=== PATIENT | male | born 1970 | race Caucasian/White ===

== ENCOUNTER 2016-07-17 14:25 | Emergency (ER) | payer MEDICAID ==
[~2016-07-17] VITALS: Ht 177.8 cm; Wt 70.5 kg
[2016-07-17 14:28] VITALS: BP 123/89; PULSE 122; RESP 20; O2SAT 96
--- NOTE | 2016-07-17 15:15 | ED.REPORT ---
HPI-Psychiatric Illness Date of Service Jul 17, 2016 ED Provider: Faheem Beach History of Present Illness: 46yo male recently relocated from [place] to be near expecting daughter reports he has been out of his seizure and psychiatric meds for 4 days. He smoked methamphetamines last evening. He has a long hx. of mental illness, "I know I don't do well when I'm off my meds." He has pill bottles with him for Paxil, Haldol, and Phenobarb, last filled 06/28 for 2 week supply. No SI/HI. Nursing Notes Stated Complaint: MEDICATION Chief Complaint: Psychiatric Complaint Nursing Notes Reviewed: Yes Allergies: Coded Allergies: No Known Allergies (Unverified , 07/17/16) Scheduled Haloperidol (Haloperidol) 5 Mg Tablet 5 MG PO QPM Paroxetine (Paxil) 20 Mg Tablet 20 MG PO HS Phenobarbital (Phenobarbital) 64.8 Mg Tablet 64.8 MG PO DAILY General Time Seen by MD: 15:07 Chief Complaint Anxious, Hallucinations, auditory Hx Obtained From: Patient Onset Occurred: 4 days ago Context of Onset: Illicit drug use Symptom Duration: Since onset Severity: Current: No pain currently Severity: Maximum: No pain Associated with: Reports: Anxiety, Psychosis Pertinent Negative: Pt denies other symptoms Recent Healthcare: Recent doctor visit Similar Sx Previous: Yes Risk-Psychiatric Illness Suicide Risk Stratification Suicide Risk Factors - Adult: : Prior psych admission: Substance abuse RF Statements: Risk factors reviewed Past Medical History Past Medical History Schizophrenia Epilepsy Substance use disorder Reports: Mental illness Smoking History Current Every Day Smoker Social History Alcohol Use: "Social" Drug Use: Meth, THC Other Social History: From out of town Ambulatory Status Independent Review of Systems Constitutional: Denies: Chills, Fever Respiratory: Denies: Shortness of breath Cardiovascular: Denies: Chest pain GI: Denies: Abdominal pain Psychiatric: Reports: Anxiety, Hallucinations, auditory, Insomnia, Stress, Denies: Delusional, Suicidal ideation Physical Exam Initial Vital Signs Vital Signs (First) Date Time Temp Pulse Resp B/P Pulse Ox O2 Delivery O2 Flow Rate FiO2 07/17/16 14:28 36.1 122 20 123/89 96 Room Air Initial VS: Reviewed General/Constitutional: Awake, Alert, Not toxic appearing Behavior: Positive: Anxious, Restless, Tearful Psychiatric: Not suicidal, Not homicidal, Judgment/insight NL Abnormal Mood/Affect: Positive: Anxious Abnormal Thinking / Perception: Positive: Hallucinations, auditory Respiratory / Chest: Breath sounds NL, Breath sounds = bilat, No respiratory distress Cardiovascular: Regular rhythm, Heart sounds NL Heart Rate / Rhythm: Positive: Tachycardia Abdomen: Soft, Non-tender Interpretation & Diagnostics Interpretation & Diagnostics: UDS with Meth, barbituates, THC Lab Results Interpretation Result Diagram: 07/17/16 1545 07/17/16 1545 Test 07/17/16 15:45 White Blood Count 12.2th/mm3 (3.8-10.1) Red Blood Count 4.85mil/mm3 (4.40-5.80) Hemoglobin 16.1g/dL (13.8-17.2) Hematocrit 45.4% (41.0-50.0) Mean Corpuscular Volume 93.6fL (81-100) Mean Corpuscular Hemoglobin 33.2pg (27.0-35.0) Mean Corpuscular Hemoglobin Concent 35.5% (32.0-37.0) Red Cell Distribution Width 12.8% (12.3-15.4) Platelet Count 251bil/L (150-400) Neutrophils (%) (Auto) 56.8% (40-74) Lymphocytes (%) (Auto) 32.5% (14-46) Monocytes (%) (Auto) 8.1% (4-12) Eosinophils (%) (Auto) 1.7% (0-5) Basophils (%) (Auto) 0.7% (0-3) Sodium Level 135mEq/L (134-144) Potassium Level 4.1mEq/L (3.5-5.2) Chloride Level 95mEq/L (97-108) Carbon Dioxide Level 22mmol/L (18-29) Blood Urea Nitrogen 14mg/dL (6-24) Creatinine 0.79mg/dL (0.76-1.27) Estimat Glomerular Filtration Rate 113mL/min (>59) Glucose Level 93mg/dL (60-99) Calcium Level 9.5mg/dL (8.5-10.1) Total Bilirubin 0.6mg/dL (0.0-1.2) Aspartate Amino Transf (AST/SGOT) 18U/L (0-50) Alanine Aminotransferase (ALT/SGPT) 12U/L (0-44) Alkaline Phosphatase 93U/L (25-150) Total Protein 7.5g/dL (6.4-8.4) Albumin 4.4g/dL (3.4-5.0) Hold Pandya Top Tube Received (Received) Re-Eval/Medical Decision Med Decision/Clinical Course STUMP SHOOTER consulted, provided resourses in community for substance abuse and mental health. Pt. has f/u at [facility]. I wrote 2 week supply of Haldol, Paxil, and Phenobarb. Discussed s/s for which to return to ED. he acknowledged understabnding of treatment plan. Counseled Regarding: Diagnosis, Lab results, Need for follow-up, When/why to return to ED Discharge & Departure Impression: Primary Impression: Anxiety Additional Impressions: Substance abuse Schizophrenia Schizophrenia type: unspecified Qualified Code: F20.9 - Schizophrenia, unspecified )( Condition at Discharge: No danger to self Disposition: Home Patient Instructions: Anxiety (ED) Additional Instructions: Avoid any use of alcohol or street drugs. Follow up with [facility] as scheduled. Return to ER if anything worsens. Referrals: [facility] Other as scheduled EDSupervising Provider for APC: Delia North MD, Christopher R PAC Jul 17, 2016 15:15
[2016-07-17 15:53] LABS: BASOPHILS % (AUTO) 0.7 % (0-3); EOSINOPHILS % (AUTO) 1.7 % (0-5); MONOCYTES % (AUTO) 8.1 % (4-12); Mean Corpuscular Hemoglobin 33.2 pg (27.0-35.0); Mean Corpuscular Volume 93.6 fL (81-100); NEUTROPHILS % (AUTO) 56.8 % (40-74); Platelet Count 251 bil/L (150-400)
[2016-07-17] MEDS ORDERED: PARO20TA57 PO (18:26)
[2016-07-17] MEDS ORDERED: HAL5 PO (18:26)
[2016-07-17] MEDS ORDERED: PHEN64.8 PO (18:26)
[2016-07-17 18:50] VITALS: BP 123/89; PULSE 122; RESP 20; O2SAT 96
== END 2016-07-17 18:50 | disposition home or self-care (01) ==
LOC: SED 14:25
DX: F41.9 Anxiety disorder, unspecified (principal); F19.10 Other psychoactive substance abuse, uncomplicated; F20.9 Schizophrenia, unspecified; F17.200 Nicotine dependence, unspecified, uncomplicated

== ENCOUNTER 2016-08-12 13:07 | Inpatient (IN) | payer MEDICAID, OTHER ==
[~2016-08-12] VITALS: Ht 180.3 cm; Wt 69.2 kg
[2016-08-12] VITALS (11 sets, daily range): BP systolic 101–138; BP diastolic 51–81; PULSE 88–145; RESP 14–35; O2SAT 90–96
[~2016-08-12 13:07] MED LIST: HAL5 PO; PARO20TA57 PO; PHEN64.8 PO
--- NOTE | 2016-08-12 13:22 | ED.REPORT ---
HPI-General Illness Date of Service Aug 12, 2016 ED Provider: Kam Saldana MD The patient is a 46 year old male who presents to the emergency department complaining of severe right lateral chest/back pain that began 3 days ago. He states, "it feels like someone is stabbing my in the back." The patient was playing catch with his son when he tripped, fell, and hit the right side of his ribs on a picnic table. His pain has gradually worsened since onset. His pain is exacerbated with deeps breaths, coughing or any movement. He now reports fever, chills, cough, sputum production, he denies nausea or vomiting. Nursing Notes Stated Complaint: CAN'T BREATH POSS PUNCTURED LUNG OR BROKEN RIBS Chief Complaint: Respiratory Complaints Nursing Notes Reviewed: Yes Allergies: Coded Allergies: No Known Allergies (Unverified , 08/12/16) Scheduled Benztropine Mesylate (Benztropine Mesylate) 0.5 Mg Tablet 0.5-1 MG PO HS Haloperidol (Haloperidol) 5 Mg Tablet 5 MG PO QPM Paroxetine (Paxil) 20 Mg Tablet 20 MG PO HS Phenobarbital (Phenobarbital) 64.8 Mg Tablet 64.8 MG PO BID General Time Seen by MD: 13:21 Chief Complaint Other (difficulty breathing) Hx Obtained From: Patient Arrived By: Walk-in Sudden in Onset?: Yes Onset Occurred: 3 days ago Symptom Duration: Since onset Location: : Back: Chest Quality: Painful Severity: Current: Severe Severity: Maximum: Severe Recent Healthcare: No recent doctor visit, No recent hospitalization Similar Sx Previous: No Past Medical History Past Medical History Schizophrenia Epilepsy Substance use disorder Reports: Mental illness Family History Noncontributory Smoking History Current Every Day Smoker Social History Alcohol Use: "Social" Drug Use: Meth, THC Other Social History: From out of town Ambulatory Status Independent Review of Systems Full Review of Systems Constitutional: Denies: Chills, Fever Respiratory: Reports: Pleuritic pain, Shortness of breath, Denies: Non-productive cough, Prod cough, bloody, Prod cough, brown, Prod cough, clear, Prod cough, green, Prod cough, white, Prod cough, yellow Cardiovascular: Reports: Chest pain GI: Denies: Nausea, Vomiting Complete sys rev & neg: except as marked. Physical Exam Vital Signs Vital Signs Date Time Temp Pulse Resp B/P Pulse Ox O2 Delivery O2 Flow Rate FiO2 08/12/16 14:48 126 35 116/64 93 Nasal Cannula 4 08/12/16 13:55 36.7 121 35 138/80 94 Nasal Cannula 4 08/12/16 13:10 37.9 145 14 119/81 90 Room Air Initial VS: Reviewed Head / Eyes: Atraumatic, Normocephalic, PERRL ENT: Mucous membranes moist, Conjunctiva normal, No scleral icterus Neck: Supple, Non-tender, Full range of motion Cardiovascular: Regular rate & rhythm, Heart sounds normal, Intact distal pulses Abdomen / GI: Soft, Non-tender, No guarding, No rebound, No distention Lymphatic: No lymphadenopathy Extremities: Vascular intact, Neuro intact, No swelling, No tenderness Skin: Warm, Dry, No cyanosis Neurologic: Alert, Oriented, Nonfocal Psychiatric: Mood/affect normal, Behavior normal, Normal thought content General/Constitutional: Awake, Alert, Cooperative Respiratory / Chest: Breath sounds NL, Breath sounds = bilat, No respiratory distress He has superficial ecchymosis about the right lateral chest wall. No crepitus or palpable rib fractures. Very tender to palpation to his right lateral chest wall. Good bilateral breath sounds. Good bilateral chest movement. Interpretation & Diagnostics Lab Results Interpretation Result Diagram: 08/12/16 1319 08/12/16 1319 Test 08/12/16 13:19 White Blood Count 20.1th/mm3 (3.8-10.1) Red Blood Count 5.10mil/mm3 (4.40-5.80) Hemoglobin 16.7g/dL (13.8-17.2) Hematocrit 47.7% (41.0-50.0) Mean Corpuscular Volume 93.5fL (81-100) Mean Corpuscular Hemoglobin 32.7pg (27.0-35.0) Mean Corpuscular Hemoglobin Concent 35.0% (32.0-37.0) Red Cell Distribution Width 13.2% (12.3-15.4) Platelet Count 211bil/L (150-400) Neutrophils (%) (Auto) 86.3% (40-74) Lymphocytes (%) (Auto) 5.7% (14-46) Monocytes (%) (Auto) 7.4% (4-12) Eosinophils (%) (Auto) 0% (0-5) Basophils (%) (Auto) 0.1% (0-3) Prothrombin Time 10.2sec (8.1-12.5) Prothromb Time International Ratio 0.95ratio Sodium Level 134mEq/L (134-144) Potassium Level 4.8mEq/L (3.5-5.2) Chloride Level 95mEq/L (97-108) Carbon Dioxide Level 23mmol/L (18-29) Blood Urea Nitrogen 9mg/dL (6-24) Creatinine 0.88mg/dL (0.76-1.27) Estimat Glomerular Filtration Rate 100mL/min (>59) Glucose Level 115mg/dL (60-99) Lactic Acid Level 1.7mmol/L (0.4-2.0) Calcium Level 9.5mg/dL (8.5-10.1) Magnesium Level 1.3mg/dL (1.6-2.6) Total Bilirubin 0.7mg/dL (0.0-1.2) Aspartate Amino Transf (AST/SGOT) 14U/L (0-50) Alanine Aminotransferase (ALT/SGPT) 8U/L (0-44) Alkaline Phosphatase 82U/L (25-150) Troponin T < 0.010ug/L (0.0-0.011) Total Protein 7.2g/dL (6.4-8.4) Albumin 4.3g/dL (3.4-5.0) ECG Interpretation ECG Interpretation: Sinus tachycardia with a rate of 126 bpm Nomal axis Normal intervals No ST segment elevations No T wave abnormalities No prior available for comparison Time: 13:50 Interpreted by: ED physician X-Ray Chest Interpretation Chest Xray Interpretation: IMPRESSION: Left lower lobe and lingular pneumonia. Recommend followup to resolution. Dictated by: Tramaine Luu M.D. on 08/12/2016 at 14:07 Interpretation / Wet Read by: Interpret - Radiologist Re-Eval/Medical Decision Med Decision/Clinical Course The patient is a 46 year old male who presents to the emergency department complaining of severe right lateral chest/back pain that began 3 days ago. He states, "it feels like someone is stabbing my in the back." The patient was playing catch with his son when he tripped, fell, and hit the right side of his ribs on a picnic table. His pain has gradually worsened since onset. His pain is exacerbated with deeps breaths, coughing or any movement. He now reports fever, chills, cough, sputum production, he denies nausea or vomiting. Here in the emergency department the patient is initially febrile, he is tachycardic, he appears to be in moderate respiratory distress and is requiring 4 L of submental oxygen by nasal cannula to maintain saturation in the mid 90s. CXR: left lower lobe and lingular pneumonia LABS: leukocytosis of 20.1, CBC otherwise unremarkable, CMP unremarkable, troponin negative, coag studies normal Treated with Dilaudid, Toradol, and IVF, given presence of pneumonia the patient was started on ceftriaxone and azithromycin. Before initiating antibiotics 2 sets of blood cultures were obtained. The patient's presentation is somewhat bizarre. He initially presents complaining of traumatic injury. On further questioning his overall presentation seems more consistent with bacterial pneumonia. This is supported by presence of leukocytosis, new consolidation on chest x-ray, hypoxia and vital signs that are concerning for acute infectious process. The patient was aggressively treated with IV fluids, pain medications and antibiotics. His tachycardia improved. Repeat examination was reassuring. My initial concern was for possible rib fractures or pneumothorax or pleurisy no advancing evidence thereof. I feel that the patient requires admission to the hospital given need for supplemental oxygen, tachycardia and significant respiratory distress. Patient was discussed with admitting hospitalist and accepted for further management. Time of writing this note CT scan of the chest abdomen pelvis is pending. I have ordered this to further characterize his pneumonia as well as definitively rule out any traumatic thoracic or abdominal injuries. My suspicion is relatively low for such pathology though given his rather vague presentation and at level of tachycardia/discomfort I feel that it is prudent to definitively rule out associated traumatic injury. Source of Hx: Old records Consultation : Consulted With: Hospitalist High Speed Printer Operator: Will see patient, Agrees with eval, Agrees with plan, Accepts admit Counseled Regarding: Diagnosis, Lab results, Need for admission Discharge & Departure Primary Impression: Pneumonia Pneumonia type: due to unspecified organism Laterality: left Lung location : lower lobe of lung Qualified Code: J18.1 - Lobar pneumonia, unspecified organism Additional Impressions: Sepsis Sepsis type: sepsis due to unspecified organism Qualified Code: A41.9 - Sepsis, unspecified organism Leukocytosis Leukocytosis type: unspecified Qualified Code: D72.829 - Elevated white blood cell count, unspecified Respiratory distress Hypoxia Chest wall pain Disposition: ADMITTED TO HOSPITAL Discharge Condition All VS Reviewed: Yes Condition: Critical Referrals: NOPCP (PCP) Scribe Attestation Portions of this note were transcribed by Karis Cleveland. I, Dr. Saldana personally performed the history, physical exam and medical decision-making; I reviewed and confirmed the accuracy of the information in the transcribed note. Signed by: Umberto Razo, 08/12/2016 at 1500. Kam Saldana MD Aug 12, 2016 13:22 Karis Cleveland Aug 12, 2016 13:28
[2016-08-12] MEDS ORDERED: HYDROmorphone 1 mg/mL Inj IVPUSH ONE (13:30)
[2016-08-12] MEDS ORDERED: 0.9% Sodium Chloride 1,000 ML IV SCH (13:30)
[2016-08-12 13:31] LABS: BASOPHILS % (AUTO) 0.1 % (0-3); EOSINOPHILS % (AUTO) 0 % (0-5); MONOCYTES % (AUTO) 7.4 % (4-12); Mean Corpuscular Hemoglobin 32.7 pg (27.0-35.0); Mean Corpuscular Volume 93.5 fL (81-100); NEUTROPHILS % (AUTO) 86.3 % (40-74); Platelet Count 211 bil/L (150-400)
[2016-08-12 13:50] LABS: INR 0.95 ratio
[2016-08-12] MEDS ORDERED: cefTRIAXone Inj 2,000 MG in Dextrose 5% Minibag Plus 50 ML IV ONE (13:55)
[2016-08-12] MEDS ORDERED: Azithromycin Inj 500 MG in Dextrose 5% w/Vial Mate 250 ML IV ONE (13:55)
[2016-08-12] MEDS ORDERED: Alum-Mag Hydrox-Simeth 30 mL Suspension PO PRN (13:55)
[2016-08-12] MEDS ORDERED: Ondansetron 2 mg/mL 2 mL Inj IVPUSH PRN (13:55)
[2016-08-12 13:58] LABS: TROPONIN T < 0.010 ug/L (0.0-0.011)
[2016-08-12 14:08] LABS: Magnesium 1.3 mg/dL (1.6-2.6)
--- NOTE | 2016-08-12 14:10 | DRSVH ---
PROCEDURE: X-RAY CHEST, TWO VIEWS ([id number]) INDICATIONS: cp, trauma TECHNIQUE: 2 views of the chest were acquired. COMPARISON: None. FINDINGS: Surgical changes and devices: None. Lungs and pleura: There are infiltrates seen lingula and left lower lobe consistent with pneumonia. Mediastinum: Mediastinal contours are normal. Heart size is normal. Bones and chest wall: No suspicious bony abnormalities. Soft tissues appear unremarkable. IMPRESSION: Left lower lobe and lingular pneumonia. Recommend followup to resolution. Dictated by: Tramaine Luu M.D. on 08/12/2016 at 14:07 Approved by: Tramaine Luu M.D. on 08/12/2016 at 14:08
[2016-08-12] MEDS ORDERED: BENZ0.5T3 PO (14:37)
[2016-08-12] MEDS ORDERED: PHEN64.8 PO (14:37)
[2016-08-12] MEDS ORDERED: PHENobarbital 32.4 mg Tablet PO SCH (14:40)
[2016-08-12] MEDS ORDERED: PHENobarbital 32.4 mg Tablet PO ONE (15:35)
--- NOTE | 2016-08-12 15:50 | DRSVH ---
PROCEDURE: CT CHEST, ABDOMEN AND PELVIS WITH CONTRAST ([id number]) INDICATIONS: trauma TECHNIQUE: After the administration of intravenous contrast, 5 mm thick sections acquired from the lung apices t o the symphysis. 5 mm coronal and sagittal reformats were performed, with additional 7 mm MIP reform ats through the lungs. For radiation dose reduction, the following was used: automated exposure con trol, adjustment of mA and/or kV according to patient size. COMPARISON: None. FINDINGS: Image quality: Excellent. CHEST: Lungs and pleura: Consolidation is present at the base of the lingula. Diffuse tree in bud radiopacit ies are present within the left lower lobe and more superior aspect of the lingula. Scattered opaciti es are also present in the left upper lobe. No pleural effusion or pneumothorax. Mild air space opaci ties are present within the right middle lobe. No pulmonary laceration. Low density fluid or debris i s present within the main left bronchus and the downstream branches are occluded with this low-densit y fluid or debris. Mediastinum: Heart size is normal. No pericardial effusion. No mediastinal or hilar adenopathy by size criteria. Thoracic aorta and central pulmonary arteries are normal in size. Esophagus is bee l in caliber. No hiatal hernia. Chest wall: No axillary or supraclavicular adenopathy by size criteria. Thyroid gland is unremarkab le. ABDOMEN: Solid organs: Liver and spleen are normal in size and enhancement. Gallbladder is unremarkable. Bi liary system is non dilated. Pancreas enhances normally. No adrenal nodules. Kidneys demonstrate n ormal size and enhancement, without hydronephrosis. Peritoneum and bowel: Bowel loops demonstrate normal wall thickness and caliber. No free fluid or a ir. Nodes and vessels: No retroperitoneal or mesenteric adenopathy by size criteria. Aorta and inferior vena cava are normal in size. Miscellaneous: There is a small fat-containing ventral hernia. PELVIS: Genitourinary: Bladder wall thickness is normal. Miscellaneous: No inguinal hernias or adenopathy. Bones: No suspicious bony lesions. No vertebral body compression fractures. IMPRESSION: 1. Dense consolidation of the lingular base and diffuse tree in bud radiopacities throughout the mid and left lower lung consistent with multi-lobar pneumonia and diffuse endobronchial spread of infecti on. Debris or fluid is also present within the left main bronchus and distal branches in the mid and lower lung. 2. No thoracic or abdominal trauma after recent fall. Dictated by: Zenia Molina M.D. on 08/12/2016 at 15:34 Approved by: Zenia Molina M.D. on 08/12/2016 at 15:48
[2016-08-12 15:53] LABS: APPEARANCE,URINE CLEAR (CLEAR,HAZY); COLOR,URINE YELLOW (YELLOW); OCCULT BLOOD,URINE NEGATIVE (NEGATIVE); PH,URINE 6.5 (5.0-8.0); UROBILINOGEN,URINE NORMAL (NORMAL)
--- NOTE | 2016-08-12 16:18 | ABG ---
DateTimeAnalyzed 16:09:29 -_ pH ____7.369 - 7.350 7.450 pCO2 ___41.7__ -mmHg 35.0 45.0 pO2 ___66.4__ -mmHg 69.0 116 HCO3- ___24.1__ -mmol/L 22.0 26.0 ABE ___-1.2__ -mmol/L tHb ___14.4__ -g/dL O2Hb ___90.7__ -% COHb ____2.7__ -% 1.5 MetHb ____0.2__ -% sO2 ___93.4__ -% FIO2 ___36.0__ -% Drawn By jmw - Date/Time Notified____ 16:17:00 -_ Spontaneous_RR 22 -b/min Liter_Flow ____4.00_ -L/min Oxygen Device 1 __CANNULA - Notified By JMW - Notified Whom DR MCCART - K+ ____4.3__ -mmol/L tO2 ___18.4__ -Vol% Andrea test _Positive -
--- NOTE | 2016-08-12 16:24 | PCM.HPMED ---
Subjective Date of Service Aug 12, 2016 Primary Provider: Admitting Physician: Oscar Renteria MD Primary Care Physician: Nophome Attending Physician: Oscar Renteria MD Chief Complaint: CAN'T BREATH POSS PUNCTURED LUNG OR BROKEN RIBS History of Present Illness: Mr. Alex Anderson is a very pleasant 46-year-old gentleman with a past medical history significant for "recent heart attack" with 1 day hospital stay and no intervention, psychosis, seizure disorder, mental illness, IV drug use, alcoholism, tobaccoism, who presents to the [facility] emergency Department with right flank and mid-lower back pain following a traumatic fall onto a picnic table corner after playing football. He reports severe 10/10 pain in his ribs on his lower right side with coughing or deep breaths, and some minor pain in his left "lung area" for roughly 1 month. He reports not feeling well starting yesterday with fairly rapid onset fevers, diaphoresis, sub-sternal chest pain along with right flank and mid back pain. Of note patient has a reported history of IV drug use "anything he can get" with last IV drug injection 3 months ago and recent meth use yesterday, he states that he has been drinking alcohol of heavy quantities for 30+ years, when questioned an exact amount he said "as much as he can get his hands on" then stated bare minimum 12 pack a day, tobacco use of one pack per day since 13 years old. He is currently on disability for psychosis. Patient reports fevers, diaphoresis, substernal chest pain, shortness of breath , decreased appetite, right flank and mid lower back pain. He denies syncope, dizziness, change in vision, nausea, vomiting, chills, abdominal pain, diarrhea constipation, hemoptysis, hematuria. In the emergency department his vitals are as follows; Temperature 37.9 C, pulse 145, respiratory rate 14, blood pressure 119/81 and 90 % on room air. Shortly after admission patient's pulse remained tachycardic at 121, respiratory rate increased to 35, blood pressure 138/80, was requiring 4 L per 94%. Patient had a CT scan chest abdomen pelvis with contrast, with official read still pending. Chest x-ray with left lingular pneumonia. Blood cultures 2 pending. Sputum cultures. MRSA swab ordered. Procalcitonin ordered. Initial Troponin 0.010. Lactic acid 1.7. Labs on admission; white count 20.1 with 8600 neuts. Chloride 95, glucose 1:15 , magnesium 1.3. Urinalysis normal. In the emergency department patient received ceftriaxone and azithromycin., IV Dilaudid. IV Toradol. Patient has been admitted as an inpatient to the CCU. Review of Systems: A comprehensive review of systems was conducted with the patient and found to be negative except as above in the History of Present Illness. Allergies Coded Allergies: No Known Allergies (Unverified , 08/12/16) Home Medications Benztropine Mesylate (Benztropine Mesylate) 0.5 Mg Tablet 0.5-1 MG PO HS Haloperidol (Haloperidol) 5 Mg Tablet 5 MG PO QPM Paroxetine (Paxil) 20 Mg Tablet 20 MG PO HS Phenobarbital (Phenobarbital) 64.8 Mg Tablet 64.8 MG PO BID PMH Schizophrenia Epilepsy Substance use disorder Reports: Mental illness Surgical History Abdominal hernia Family History Mother passed of lung cancer Father passed of Liver cancer Social History Occupation: Currently disability/psychosis Hx Alcohol Use: Yes ("social") Hx Substance Use: Yes (Meth, THC) Hx Tobacco Use: Yes Smoking Status: Current Every Day Smoker Years of Smokin Living Arrangement: with Family with Friends/Roommate Exam Vital Signs Vital Sign - Last Date Time Temp Pulse Resp B/P Pulse Ox O2 Delivery O2 Flow Rate FiO2 08/12/16 14:48 126 35 116/64 93 Nasal Cannula 4 08/12/16 13:55 36.7 Exam General: No acute distress, well-developed, well-nourished, appropriately interactive, moderately disheveled, HEENT: Normocephalic, atraumatic. External ears without defect. Pupils equal and constricted, round, and reactive to light and accommodation. Anicteric sclerae, moist conjunctivae, and no lid lag. Oropharynx free of erythema and cobble stoning with moist mucosa. Neck: Supple with full range of motion. No jugular venous distension. No bruits. No lymphadenopathy or thyromegaly. Cardiovascular: Tachycardic rate and regular rhythm with no murmurs, rubs, or gallops appreciated Pulmonary: Left sided coarse rhonci, mild wheezes on the left. Tachypnic, use of accessory muscles, respiratory splinting. Abdomen: Bowel tones present. Soft, nontender, nondistended. No hepatosplenomegaly or masses appreciated. Extremities: No clubbing, cyanosis, edema, or lymphadenopathy appreciated. Skin: Normal temperature, turgor, and texture; no rash, ulcers, or subcutaneous nodules appreciated, grease stained hands/fingers/nails Neurological: Cranial nerves grossly intact. Normal muscle strength, tone, and bulk. Reflexes, coordination, and sensory function within normal limits. No known gait impairment. Psychiatric: Normal mood and affect. Alert and oriented to person, place, and time. Lab and Diagnostics Result Diagram: 08/12/16 1319 08/12/16 1319 X-Rays, CTs and MRIs CT CHEST, ABDOMEN AND PELVIS WITH CONTRAST IMPRESSION: 1. Dense consolidation of the lingular base and diffuse tree in bud radiopacities throughout the mid and left lower lung consistent with multi- lobar pneumonia and diffuse endobronchial spread of infection. Debris or fluid is also present within the left main bronchus and distal branches in the mid and lower lung. 2. No thoracic or abdominal trauma after recent fall. Dictated by: Zenia Molina M.D. on 08/12/2016 at 15:34 X-RAY CHEST, TWO VIEWS IMPRESSION: Left lower lobe and lingular pneumonia. Recommend followup to resolution. Dictated by: Tramaine Luu M.D. on 08/12/2016 at 14:07 Assessment & Plan Mr. Alex Anderson is a very pleasant 46-year-old gentleman with a past medical history significant for IVDU, ETOH use disorder, seizure disorder admitted to [facility] for L lobe pneumonia. Receiving IV antibiotics and placed on CIWA protocol. Severe Sepsis, present on admission. Active. - Temperature 37.9, pulse 145, respiratory rate 35, 4 L nasal cannula 93%. WBC 20.1 with 8600 neutrophils. - Chest x-ray as above. - CT chest abdomen pelvis as above. - Blood cultures 2 pending. - MRSA pending. - Lactic acid within normal limits. - ABG pending. - Received ceftriaxone and azithromycin in the emergency department. - Hep B/C, HIV, fungal antibodies pending. - Continue supportive care, NS @ 100/hr till 6am. Community Acquired Pneumonia, present on admission. Active. - CT chest/abd/pelvis - Dense consolidation of the lingular base and diffuse tree in bud radiopacities throughout the mid and left lower lung consistent with multi-lobar pneumonia and diffuse endobronchial spread of infection. Debris or fluid is also present within the left main bronchus and distal branches in the mid and lower lung. - Pneumonia workup including: Sputum cultures, strep pneumo and legionella urine antigen, pro-calcitonin. - Fungitell, Galactomannan ag, Alcohol use disorder, present on admission. Active - CIWA Seizure disorder - Continue home phenobarbital Acetaminophen for mild pain when necessary. Bowel regimen Senna and MiraLAX scheduled and PRN. Zofran when necessary for nausea and vomiting. SubQ heparin held for now. SCDs in place. High-risk medications: IV Dilaudid in ED. Patient status: Patient was admitted to the [facility]. Likely here for > 2 midnights. Dependent upon pneumonia and respiratory status. Will be discharged to home in [place] with family and friends when medically stable. Pain Evaluation: Adequate Pain Control Resuscitation Status: CPR: Attempt Resuscitation Attending Statement The patient was seen and examined together with Dr. Moreno on 08/12/2016 and I agree with the history, exam and plan as outlined in the note above. . AUGUSTA MORENO DO Aug 12, 2016 16:00 Oscar Renteria MD Aug 14, 2016 07:56
--- NOTE | 2016-08-12 18:20 | PCM.CHPMED ---
Subjective Date of Service: Aug 12, 2016 Provider requesting consult: Oscar Renteria MD Primary Physician: Admitting Physician: Oscar Renteria MD Primary Care Physician: Nophome Attending Physician: Oscar Renteria MD Admit Status: From the Emergency Department Chief Complaint: Chief Complaint: right sided flank pain History of Present Illness: Pulmonary Critical Care Consult Patient is a 46-year-old male with past medical history remarkable for schizophrenia and seizure disorder who presents with right-sided flank pain 3 days post traumatic injury. The patient also ascribes to a 1 day history of worsening shortness of breath with productive cough. The patient states that 3 days ago his point football when he fell on a picnic table bench injuring his right side. The patient states that the first day the pain was only mild however yesterday during a coughing spell he felt something acutely worsen in the area. The pain is described as sharp and stabbing and worse with movement and coughing. The patient states that he has also had worsening fever and chills. The patient has had pneumonia twice in the past once requiring hospitalization and need does not recall any unusual bug. The patient recently moved back to [place] from [place] one month ago where he was living with an uncle. The patient states that he lives in [place] currently with some friends and a private residence. The patient denies cave diving in [place] or exposure to any unusual bird droppings. The patient has no sick contacts. Patient states that yesterday he smoked methamphetamines. At approximately 2 months ago was last used injectable drugs. He denies having been tested for hepatitis or HIV since then. The patient drinks daily and has been hospitalized 3-4 months ago in [place] for alcohol withdrawal symptoms requiring an ICU stay. The patient's last drink was August 11 at approximately 3 PM. Review of Systems: A comprehensive review of systems was obtained and all are negative except for what is included in the history of present illness. PMH Past Medical History Schizophrenia Epilepsy/seizure disorder Substance use disorder Mental illness Surgical History Abdominal hernia Home Medications Benztropine Mesylate 0.5-1 MG PO HS Haloperidol 5 MG PO QPM Paroxetine 20 MG PO HS Phenobarbital 64.8 MG PO BID Allergies: Coded Allergies: No Known Allergies (Unverified , 08/12/16) Social History Occupation: disabilityHx Alcohol Use: Yes (daily)Hx Substance Use: Yes (Meth , THC)Hx Tobacco Use: Yes Smoking Status: Current Every Day Smoker Years of Smokin Living Arrangement: with Family with Friends/Roommate Exam Vital Signs Vital Sign - Last Date Time Temp Pulse Resp B/P Pulse Ox O2 Delivery O2 Flow Rate FiO2 08/12/16 16:38 Supplement Oxygen 08/12/16 16:38 36.4 117 24 113/74 93 4.00 Additional Information: General: Middle-aged male appearing older than stated age, No acute distress, well-developed, well-nourished, appropriately interactive Eyes: PERRLA, EOMI, anicteric sclera, mildly injected conjunctiva HENT: Normocephalic, atraumatic. Moist mucous membranes without central cyanosis, Oropharynx free of erythema and cobble stoning Neck: Supple with full range of motion. No jugular venous distension. No bruits. No lymphadenopathy or thyromegaly. Cardiovascular: Regular rate and rhythm with no murmurs, rubs, or gallops appreciated Pulmonary: Diffuse rales noted throughout all lung schafer worse in the bases bilaterally with mildly decreased air movement in left lower lung field, Normal respiratory effort with no use of accessory muscles. Abdomen: Umbilical hernia noted, Bowel tones present. Soft, nontender, nondistended. No hepatosplenomegaly or masses appreciated. Extremities: No clubbing, cyanosis, edema, or lymphadenopathy appreciated. Upper extremities have notable discoloration of fingertips with dirt under nails Skin: Normal temperature, turgor, and texture; no rash, ulcers, or subcutaneous nodules appreciated. Neurological: Nonfocal neurologic exam, no tremors noted, able to move all extremities spontaneously Psychiatric: Normal mood and affect. Alert and oriented to person, place, and time. Lab and Diagnostics Result Diagram: 08/12/16 1319 08/12/16 1319 X-Rays, CTs and MRIs CT CHEST, ABDOMEN AND PELVIS WITH CONTRAST ([id number]) IMPRESSION: 1. Dense consolidation of the lingular base and diffuse tree in bud radiopacities throughout the mid and left lower lung consistent with multi- lobar pneumonia and diffuse endobronchial spread of infection. Debris or fluid is also present within the left main bronchus and distal branches in the mid and lower lung. 2. No thoracic or abdominal trauma after recent fall. Dictated by: Zenia Molina M.D. on 08/12/2016 at 15:34 Approved by: Zenia Molina M.D. on 08/12/2016 at 15:48 Assessment & Plan Assessment Patient is a 46-year-old male with past medical history remarkable for schizophrenia and seizure disorder who presents with right-sided flank pain 3 days post traumatic injury. # Sepsis - Patient meets criteria for SIRS with white blood cell count of 20,000, tachycardia of 145, tachypnea of 35, temperature of 37.9 - Source of infection appears to be left lobar pneumonia seen on both x-ray and CT - Patient has no signs of end organ damage and lactate is 1.7 - Patient given 2 L of IV fluids in the ED - Blood cultures ordered in the ED - Patient admitted to the ICU # Acute Left sided community acquired lobar pneumonia - Patient describes a one day history of worsening shortness of breath with productive cough and fever and chills - Patient believes the last time he was hospitalized was more than 3 months ago for alcohol withdrawal requiring ICU stay in [place] - Patient has no sick contacts with similar symptoms - Patient started on Rocephin and azithromycin in the ED - Continue Rocephin 2 g daily - Continue azithromycin 500 mg daily - Sputum sample obtained and sent for culture and Gram stain - MRSA nasal swab and viral PCR ordered pending - Legionella and strep urine antigen ordered and pending - Fungitell and galactomannan ordered and pending # Acute alcohol withdrawal - Patient describes hospitalization more than 3 months ago for a call withdrawal requiring ICU stay - Thiamine both IV and oral daily - CIWA protocol in place with diazepam available # Right sided musculoskeletal flank pain - Patient describes a mild traumatic injury which is become worse since the development of a cough - Multiple imaging studies failed to reveal a severe traumatic injury - Likely due to strain from coughing # Chronic schizophrenia - Continue outpatient haloperidol - Continue outpatient benztropine # Chronic epilepsy seizure disorder - Continue outpatient phenobarbital # polysubstance abuse - HIV HEP C and Hep B ordered - social work and case management consult ordered # Hypomagnesemia - 4 g IV order DVT prophylaxis with heparin 5000 units 3 times a day GI prophylaxis famotidine Problems: Pain Evaluation: Adequate Pain Control Resuscitation Status: CPR: Attempt Resuscitation Justin Aguirre DO Aug 12, 2016 18:20
[2016-08-12] MEDS: 0.9% Sodium Chloride 1,000 ML IV SCH (18:37)
[2016-08-12] MEDS ORDERED: Magnesium Sulf 4 Gm/100 mL H2O 4 GM in IV Premix 1 EACH IV ONE ×2 (18:40→19:25)
[2016-08-12] MEDS ORDERED: Albuterol 2.5 mg/3 mL Inhalation Solution NEB ONE (20:19)
[2016-08-12] MEDS: Albuterol-Ipratropium 3 mL Inhalation Solution NEB SCH (20:46)
[2016-08-12] MEDS: PARoxetine 20 mg Tablet PO SCH (21:37)
[2016-08-12] MEDS: PHENobarbital 32.4 mg Tablet PO SCH (21:37)
[2016-08-12] MEDS: Thiamine Inj 100 MG in 0.9% Sodium Chloride 100 ML IV SCH (23:28)
[2016-08-13] VITALS (11 sets, daily range): BP systolic 92–110; BP diastolic 46–64; PULSE 71–113; RESP 19–23; O2SAT 92–99
[2016-08-13 02:59] LABS: BASOPHILS % (AUTO) 0.2 % (0-3); EOSINOPHILS % (AUTO) 0.4 % (0-5); MONOCYTES % (AUTO) 5.8 % (4-12); Mean Corpuscular Hemoglobin 32.5 pg (27.0-35.0); Mean Corpuscular Volume 93.8 fL (81-100); NEUTROPHILS % (AUTO) 72.8 % (40-74); Platelet Count 179 bil/L (150-400)
[2016-08-13] MEDS: 0.9% Sodium Chloride 1,000 ML IV SCH (03:05)
--- NOTE | 2016-08-13 05:19 | NUR ---
Resp/CIWA/Pain During start of shift, pts RR in mid 30s, ST in 100-110s up to 140s with activity. SOB and dyspneic. 02sat 89-90% on 4L NC. made aware. Neb tx given per RT with noted effectiveness. Increased 02sat up to 10L Oxymask. CIWA 12. Pt getting restless and anxious. Pt c/o 11/24 back pain. Oxycodone and Tylenol given for pain with some effectiveness. Valium given as per CIWA. Pt noted to calm down after his dose of Haldol, Phenobarbital and Valium given. 02sat up to mid to high 90s on 10 L oxymask. RR in low to mid 20s. . Heart rate down to 80s-90s. Heart rate up to 130s with activity. Desaturations to 88-89% on RA. Pt removes his mask and forgets to put them back on. Pt drowsy but easily arousable. He gets impulsive at times. Bed alarm on. 02sat in mid 90s on 6L Oxymask at this time. RR down to low to mid 20s. Heart rate down to 80s-90s.
[2016-08-13] MEDS: Albuterol-Ipratropium 3 mL Inhalation Solution NEB SCH ×4 (07:34→21:30)
[2016-08-13] MEDS: Multivit-Miner-Folic Acid-Iron Tablet PO SCH (08:14)
[2016-08-13] MEDS: PHENobarbital 32.4 mg Tablet PO SCH ×2 (08:14→21:55)
[2016-08-13] MEDS: Thiamine Inj 100 MG in 0.9% Sodium Chloride 100 ML IV SCH (08:14)
[2016-08-13] MEDS: Azithromycin Inj 500 MG in Dextrose 5% w/Vial Mate 250 ML IV SCH (08:15)
[2016-08-13] MEDS ORDERED: cefTRIAXone Inj 2,000 MG in Dextrose 5% Minibag Plus 50 ML IV SCH (08:30)
[2016-08-13] MEDS ORDERED: Thiamine Inj 100 MG in 0.9% Sodium Chloride 100 ML IV SCH (08:30)
[2016-08-13] MEDS ORDERED: Micafungin Inj 100 MG in 0.9% Sodium Chloride 100 ML IV SCH (08:30)
--- NOTE | 2016-08-13 09:43 | CONS ---
[address] [address] CONSULTATION REPORT PATIENT: LIZ BOOKER : 1970 MR#: [id number] ADMIT: 08/12/2016 JOB ID: [id number] DATE OF SERVICE: 08/13/2016 INFECTIOUS DISEASE CONSULTATION: I thank Dr. Belle for this timely consult. REASON FOR CONSULTATION: Left-sided pneumonia in a patient with underlying polysubstance abuse. HISTORY OF THE PRESENT ILLNESS: The patient is a 46-year-old gentleman with a history of complex psychiatric disorders, as well as polysubstance abuse including alcohol, tobacco, marijuana and injection drugs including heroin and amphetamine. He was in his usual state of reasonably good health until 2-3 days ago when he noticed an increase in his baseline sputum production. He noted that his sputum had become largely green. This was associated with some fevers, chills, weakness and generalized malaise. Despite this, he was able to still be tossing a football around with his nephew when he accidentally crashed into a table in the backyard causing right lower chest pain but the patient notes that his cough and symptoms predate the injury, which occurred yesterday. All these events led him to seek evaluation at the emergency department yesterday and he was subsequently admitted to this facility. A chest x-ray and CT scan have shown the so-called tree-in-bud appearance in his left lower lung which has prompted this infectious disease consultation. PAST MEDICAL HISTORY: 1. Polysubstance abuse including intravenous drugs, as well as large quantities of alcohol and heavy cigarette smoking. 2. Complex psychiatric disorder including bipolar disorder, schizophrenia and other issues. SOCIAL HISTORY: The patient lives in [place] with family. As noted, he is a heavy cigarette smoker, alcohol consumer and does sometimes IV drug user. He has been incarcerated in the past, and has had a variety of psychiatric problems. FAMILY HISTORY: Negative for TB but positive for liver cancer in his father and lung cancer in his mother. REVIEW OF SYSTEMS: The patient has a mild headache today. No visual change. No significant sore throat. He does have a productive cough of greenish sputum for a couple days without much in the way of shortness of breath. He has right-sided chest pain due to recent trauma. He denies left-sided pain, which is where his infiltrates are. No nausea, vomiting, diarrhea, or dysuria. No swelling of the joints except the left knee which occasionally swells and has for a long time but not in the last few days. No skin rash. No neurologic complaints. Remainder of the review of systems is negative. PHYSICAL EXAMINATION: Reveals an afebrile gentleman, temperature 36.8, pulse 79, respiratory rate 22, blood pressure 100/58. He is saturating well but requiring 5 L. Of concern is that some of his blood pressures during the night have been even systolics in the mid 80s though it is currently around 100. He is not on any vasopressor agents, and he is being vigorously hydrated. The patient is alert, oriented and able to give a reasonable history. His head is without trauma. Sinuses are nontender. Eyes without conjunctivitis. Oral cavity, no thrush or hairy leukoplakia. His neck is completely supple without adenopathy or JVD. Lungs notable for coarse breath sounds. Rales and rhonchi more on the left but also heard to some degree on the right. Cardiac tones: Regular rate and rhythm without any murmurs, rubs, or gallops. The abdomen is soft and nontender without organomegaly. No ascites. Penis and scrotum normal. No Lawson catheter at this point. Extremities: Well perfused, without edema. No evidence of synovitis, and he does not have any effusion about the left knee at this point. No skin rashes noted. Patient is neurologically intact. LABORATORIES: Include white count 20,000 yesterday, now 15. Yesterday, he had a left shift, now gone. Creatinine 0.6. LFT normal. Procalcitonin yesterday 1.31, today 2.69. His urinalysis without white cells. His serologies include a pending Fungitell. Hep B core is negative interestingly. Hep C antibody negative. HIV 1 and 2 negative. Urine legionella negative. A galactomannan has also been ordered and is pending. Sputum Gram stain interestingly shows many polys with some mixed justo. We await the final culture result and, of course, this was just done yesterday. Blood cultures are negative at this point. Urine pneumococcal antigen is negative. MRSA screen is now complete and is negative. Chest radiographs were carefully reviewed on the computer, and I personally reviewed the films. The CT of the chest shows dense consolidation in the lingular base with tree-in-bud opacities throughout the left lung. There is also debris in the left mainstem bronchus. No evidence of trauma after his fall during which he struck the opposite side. In looking back, the patient does not have any radiographs at this facility to compare to these current images. IMPRESSION: This is a 46-year-old gentleman who sounds reasonably healthy except for underlying polysubstance abuse and psychiatric disease. He has 2-3 day history of some fever, malaise and a productive cough of greenish sputum. His x-ray shows sort of a mixture of patterns which look to some degree like lobar or more typical pneumonia and there is also some fairly extensive tree-in-bud type infiltrate. The differential tree-in-bud includes mycobacteria, aspergillus, noninfectious pneumonia such as bronchiolitis obliterans organizing pneumonia, pneumocystis and aspiration pneumonia. I suspect that this is most likely an aspiration given the patient's history of occasional intravenous drug use, as well as heavy alcohol consumption, but will await additional data. Also possible here would be aspergillus pneumocystis is essentially excluded by his negative human immunodeficiency virus. Bronchiolitis obliterans organizing pneumonia and mycobacterial disease would be unlikely given the very short course of this illness which sounds like only a couple of days. RECOMMENDATIONS: 1. We await the pending serologies and studies. 2. We would add to that a QuantiFERON Gold but I do not think the patient needs to be isolated for TB workup. 3. A respiratory viral panel will be ordered. 4. I would change the patient's antibiotics from current azithromycin and ceftriaxone to something with better anaerobic coverage and an easy way to do that would be just azithromycin plus Unasyn. 5. The azithromycin could be changed to oral at any time. 6. If the patient fails to improve, a bronchoscopy might be indicated given this tree-in-bud underlying pattern but I suspect that he will get better quickly and be ready for discharge. Thank you very much.
--- NOTE | 2016-08-13 13:01 | PROG NOTE ---
[address] [address] PROGRESS NOTE PATIENT: LIZ BOOKER : 1970 MR#: [id number] ADMIT: 08/12/2016 JOB ID: [id number] DATE: 08/13/2016 PULMONARY PROGRESS NOTE: The patient is a 46-year-old man with history of polysubstance, alcohol abuse, admitted with pneumonia and severe sepsis. INTERVAL HISTORY: The patient is currently on 5 L nasal cannula and says he is feeling better overall. He had symptoms of fever, chills, sweats, productive cough, and shortness of breath for about three days preceding this hospitalization but certainly no longer. Denies any weight loss, etc. He is feeling better today but still had some chills and sweats. REVIEW OF SYSTEMS: As above. PHYSICAL EXAMINATION: Vital signs reviewed. Afebrile today. T-max was 37.9 at 1 p.m. Pulse 91, respirations 23, BP 92/48, sats 96% on 5 L nasal cannula. General: Thin man sitting up in bed, breathing comfortably at rest. Speaking full sentences. Chest: Coarse left greater than right bilateral breath sounds. LABORATORY: Labs reviewed. WBC is down from 20.1 to 15.6. Also procalcitonin, which was 1.3 yesterday, is up to 2.69 this morning. Cultures: No growth on sputum. Blood cultures, urine Legionella, and streptococcal antigens are negative. Sputum cultures have insufficient growth. Respiratory viral panel is still pending. Chest x-ray and CT chest are reviewed. X-ray shows patchy bilateral left greater than right infiltrates. Left-sided infiltrates are multilobar. On chest CT there is diffuse tree in bud all along the left lung. There is minimal involvement of the right lung. There is dense consolidation of the lingula. ASSESSMENT: 1. Acute hypoxic respiratory failure. 2. Community-acquired pneumonia. 3. Severe sepsis. 4. History of polysubstance abuse. RECOMMENDATIONS: The patient is a 46-year-old man with history of prior IV drug use, alcohol and marijuana use, presenting with severe sepsis and community-acquired pneumonia. He is on [address] findings would be consistent with community-acquired pneumonia and I think he is on appropriate antibiotics currently with Unasyn and azithromycin. Certainly he has no risk factors for opportunistic infection and no obvious risk factors for tuberculosis. Also the history and appearance is not necessarily consistent with TB either. I agree with the current antibiotic choices. I would like to repeat procalcitonin tomorrow morning and if it is going up, we should probably consider bronchoscopy, but his white count going down today is reassuring. Also he has remained afebrile today, which is reassuring as well. I will discuss with Dr. Bustillos when I see him next. Will continue to follow.
[2016-08-13] MEDS ORDERED: Ampicillin-Sulbactam Inj 3,000 MG in 0.9% Sodium Chloride 100 ML IV SCH (14:30)
--- NOTE | 2016-08-13 15:58 | NUR ---
Evaluation completed. Please go to "Notes" then click on "Assessments and Notes" (bottom left corner of screen). Then select appropriate discipline tab on top of screen.
[2016-08-13] MEDS ORDERED: Heparin 25K Unit/500mL 0.45 NS 25,000 UNIT in IV Premix 1 EACH IV SCH (17:10)
[2016-08-13] MEDS ORDERED: Heparin 5,000 Unit/mL Inj IVPUSH PRN (17:10)
--- NOTE | 2016-08-13 17:23 | ABG ---
DateTimeAnalyzed 17:15:14 -_ pH ____7.323 - 7.350 7.450 pCO2 ___55.6__ -mmHg 35.0 45.0 pO2 ___25.2__ -mmHg 69.0 116 HCO3- ___28.8__ -mmol/L 22.0 26.0 ABE ____2.1__ -mmol/L tHb ___14.9__ -g/dL O2Hb ___38.9__ -% COHb ____1.0__ -% 1.5 MetHb ____0.4__ -% sO2 ___39.5__ -% FIO2 __100.0__ -% Drawn By as - Date/Time Notified____ 17:23:00 -_ Liter_Flow ___15.00_ -L/min Oxygen Device 1 NON RE-IAN - Notified By ams - Notified Whom rizwana, lai - K+ ____4.1__ -mmol/L tO2 ____8.1__ -Vol% Andrea test _Positive -
--- NOTE | 2016-08-13 18:23 | DRSVH ---
PROCEDURE: X-RAY CHEST ONE VIEW, PORTABLE ([id number]) INDICATIONS: dyspnea TECHNIQUE: One view of the chest was acquired. COMPARISON: [facility], CT, CT CHEST ABD PELVIS W CON, 08/12/2016, 15:16. [facility], CR, XR CHEST 2VW, 08/12/2016, 13:41. FINDINGS: Surgical changes and devices: None. Lungs and pleura: There is an increased appearance of left hemithorax, worse in the base, patchy opac ification as well as consolidative opacity in the left base and blunting of the left costophrenic ang le. Mediastinum: Mediastinal contours appear normal. Heart size is normal. Bones and chest wall: No suspicious bony lesions. Overlying soft tissues appear unremarkable. IMPRESSION: Increased left hemithorax opacities most consistent with worsening pneumonia and new, sup erimposed effusion. Dictated by: Francesca Garcia M.D. on 08/13/2016 at 18:19 Approved by: Francesca Garcia M.D. on 08/13/2016 at 18:21
--- NOTE | 2016-08-13 18:26 | PCM.PNMED ---
Subjective Date of Service Aug 13, 2016 Subjective The patient was working with PT when they began to have tachypnea due to exertion which resulted in a coughing fit. The patient then acutely decompensated with oxygen saturation in the 70s per nursing report. The patient was then placed on an oxygen nonrebreather at 15L per minutes. Stat ABG, ECG and chest xray were ordered with the ECG showing sinus tachycardia and CXR showing a possible worsening of the left lower lobar pneumonia. The ABG was an venous gas but showed an relatively unchanged pH but an increased CO2 even after conversion for venous gas. Exam Vital Signs Vital Sign - Last Date Time Temp Pulse Resp B/P Pulse Ox O2 Delivery O2 Flow Rate FiO2 08/13/16 16:44 36.7 91 20 99/64 99 Nasal Cannula 3.00 Intake and Output 08/12/16 08/12/16 08/13/16 Cumulative From/Thru 14:59 22:59 06:59 08/12/16 13:10 - 08/13/16 05:35 Intake Total 2300 ml 2188 ml 4488 ml Output Total 1560 ml 1560 ml Balance 2300 ml 628 ml 2928 ml Intake Oral 1080 ml 1080 ml IV Total 2300 ml 1108 ml 3408 ml Output Urine Total 1560 ml 1560 ml Exam General: Middle-aged male appearing older than stated age, No acute respiratory distress wearing an oxymask Eyes: PERRLA, EOMI, anicteric sclera, mildly injected conjunctiva HENT: Normocephalic, atraumatic. Moist mucous membranes without central cyanosis, Oropharynx free of erythema and cobble stoning Neck: Supple with full range of motion. No jugular venous distension. No bruits. No lymphadenopathy or thyromegaly. Cardiovascular: tachycardia, regular rhythm with no murmurs, rubs, or gallops appreciated Pulmonary: Diffuse rales noted throughout all lung schafer worse in the left base with mildly decreased air movement in left lower lung field, Normal respiratory effort with no use of accessory muscles. Abdomen: Umbilical hernia noted, Bowel tones present. Soft, nontender, nondistended. No hepatosplenomegaly or masses appreciated. Extremities: No clubbing, cyanosis, edema, or lymphadenopathy appreciated. Upper extremities have notable discoloration of fingertips with dirt under nails Skin: Normal temperature, turgor, and texture; no rash, ulcers, or subcutaneous nodules appreciated. Neurological: Nonfocal neurologic exam, no tremors noted, able to move all extremities spontaneously Psychiatric: Normal mood and affect. Alert and oriented to person, place, and time. Lab and Diagnostics Result Diagram: 08/13/16 0235 08/13/16 023 X-Rays, CTs and MRIs CT CHEST, ABDOMEN AND PELVIS WITH CONTRAST IMPRESSION: 1. Dense consolidation of the lingular base and diffuse tree in bud radiopacities throughout the mid and left lower lung consistent with multi- lobar pneumonia and diffuse endobronchial spread of infection. Debris or fluid is also present within the left main bronchus and distal branches in the mid and lower lung. 2. No thoracic or abdominal trauma after recent fall. Dictated by: Zenia Molina M.D. on 08/12/2016 at 15:34 X-RAY CHEST, TWO VIEWS IMPRESSION: Left lower lobe and lingular pneumonia. Recommend followup to resolution. Dictated by: Tramaine Luu M.D. on 08/12/2016 at 14:07 Assessment & Plan Mr. Alex Anderson is a very pleasant 46-year-old gentleman with a past medical history significant for IVDU, ETOH use disorder, seizure disorder admitted to [facility] for L lobe pneumonia. Receiving IV antibiotics and placed on CIWA protocol. # Acute Left sided community acquired lobar pneumonia - Patient started on Rocephin and azithromycin in the ED this was continued by primary team as he had little risk of resistant organism - The primary team also added micafungin for possible fungal infection - Sputum and blood culture pending - MRSA nasal swab and viral PCR ordered pending - Legionella and strep urine antigen ordered and pending - Fungitell and galactomannan ordered and pending - Infectious disease was consulted and broadened coverage to include anaerobic bacteria with Unasyn IV while continuing azithromycin 500 mg daily, Micafungin was also cancelled - Given the patient's acute decompensation after coughing fit, likely secondary to mucus plugging, and possible interval worsening of pneumonia on CXR, after having a discussion with Pulmonology Dr. Rubi.antibiotics were converted to broad coverage including Meropenam for gram positive and negative as well as anareobic coverage and Pseudomonas as well as Vancomycin for possible MRSA pneumonia. DVT prophylaxis: heparin 5000u TID Resuscitation Status: CPR: Attempt Resuscitation Justin Aguirre DO Aug 13, 2016 18:26
[2016-08-13] MEDS ORDERED: Meropenem Inj 2,000 MG in 0.9% Sodium Chloride 100 ML IV ONE (18:30)
[2016-08-13] MEDS: Vancomycin Dose per Pharmacist XX SCH (18:33)
[2016-08-13] MEDS ORDERED: Vancomycin Inj 1,500 MG in 0.9% Sodium Chloride 500 ML IV ONE (18:35)
--- NOTE | 2016-08-13 19:39 | NUR ---
SOB/pain/activity Pt. was doing well, being weened of off oxygen (from 5L per oximask to 3L per NC) and sating 97-98%. Denied having SOB. The at approx. 1645, pt. was siting bolt upright in bed, having labored breathing, difficulty catching his breath and was calling for help. RT was called. Pt. reported that he coughed and then had this sudden feeling of "passing out." Sats in the 70s, Resps in the 30s. Pt. was placed on a non-rebreather mask. Dr. Renteria notified; was at bedside to evaluate pt. STAT chest xray called. EKG was done. Blood gasses were drawn. Pt. was given 2mg of IV morphine; pt. stating that he was having right side/back pain rated 10/10. Pt. has been resting since this episode. On oximask, on 9L and sating 97%, resps in the 20s, otherwise stable. Reporting OBANDO 10/10 and back pain 10/10. Tele has been reading ST in the 80-90s. Pt. has been given 5mg po oxicodone and 975mg of po tylenol. Report given to Ileana primary RN to continue care.
--- NOTE | 2016-08-13 21:22 | PCM.PNMED ---
Subjective Date of Service Aug 13, 2016 Subjective Overnight the patient continued to be SOB with his RR in the 30's while satting around 90% on 10L oxymask. He was also in pain when coughing but settled into rest when given his medication. This morning he reports feeling better than yesterday, but still "touch and go" with his breathing. After being weaned off oxygen most the day, he started working with PT which ended up resulting in a fit of coughing. He began to acutely decompensat with his o2 sats in the low 70's. The patient was put on a nonrebreather at 15L and an ABG/CXR/EKG were ordered. The EKG noted sinus tachycardia without significant changes and the CXR with possible worsening of his left lingular pneumonia. His ABG, which was venous, showed increased CO2 retention. The patient is currently back to his initial status, with HR in the 70-80's and RR 20's. Exam Vital Signs Vital Sign - Last Date Time Temp Pulse Resp B/P Pulse Ox O2 Delivery O2 Flow Rate FiO2 08/13/16 17:00 Supplement Oxygen 08/13/16 16:44 36.7 91 20 99/64 99 3.00 Intake and Output 08/12/16 08/12/16 08/13/16 Cumulative From/Thru 15:00 23:00 07:00 08/12/16 13:10 - 08/13/16 05:35 Intake Total 2300 ml 2188 ml 4488 ml Output Total 1560 ml 1560 ml Balance 2300 ml 628 ml 2928 ml Intake Oral 1080 ml 1080 ml IV Total 2300 ml 1108 ml 3408 ml Output Urine Total 1560 ml 1560 ml Exam General: Disheveled male appearing older than stated age, in no acute respiratory distress wearing an oxymask HEENT: Normocephalic, atraumatic. PERRLA, EOMI with injected conjunctiva. Membranes moist and pink without cobblstoning. Neck: Supple with full range of motion. No JVD. No lymphadenopathy or thyromegaly. CV: tachycardic but regular rhythm with no murmurs/rubs/gallops appreciated Pulm: Scattered rales throughout all lung schafer, worse at the left base. Normal respiratory effort with no accessory muscle use. Abd: Soft, nontender, nondistended. Umbilical hernia, bowel tones present. No organomegaly. Extremities: Discoloration of fingertips with dirt under all fingernails bilaterally. No clubbing or cyanosis. Skin: Normal temperature, turgor. Discolored fingertips on both UE. Neurological: A&Ox3, CN2-12 intact. No tremor. Muscle strength normal in both UE /LE bilaterally. Psychiatric: Normal mood and affect. IVs and Medications Medications Reviewed: Medications were reviewed in detail Lab and Diagnostics Result Diagram: 08/13/16 0235 08/13/16 023 Microbiology MRSA screen negative Respiratory PCR panel negative Blood cultures negative x2d Sputum culture has insufficient growth thus far X-Rays, CTs and MRIs Chest XR, 08/13 IMPRESSION: Increased left hemithorax opacities most consistent with worsening pneumonia and new, superimposed effusion. Dictated by: Francesca Garcia M.D. on 08/13/2016 at 18:19 Approved by: Francesca Garcia M.D. on 08/13/2016 at 18:21 CT CHEST, ABDOMEN AND PELVIS WITH CONTRAST IMPRESSION: 1. Dense consolidation of the lingular base and diffuse tree in bud radiopacities throughout the mid and left lower lung consistent with multi- lobar pneumonia and diffuse endobronchial spread of infection. Debris or fluid is also present within the left main bronchus and distal branches in the mid and lower lung. 2. No thoracic or abdominal trauma after recent fall. Dictated by: Zenia Molina M.D. on 08/12/2016 at 15:34 X-RAY CHEST, TWO VIEWS IMPRESSION: Left lower lobe and lingular pneumonia. Recommend followup to resolution. Dictated by: Tramaine Luu M.D. on 08/12/2016 at 14:07 Assessment & Plan Mr. Alex Anderson is a very pleasant 46-year-old gentleman with a past medical history significant for IVDU, ETOH use disorder, and seizure disorder admitted to [facility] for L lobe pneumonia. He is receiving IV antibiotics and placed on CIWA protocol. Left sided community acquired lobar pneumonia, present on admission, acute, ongoing - Patient started initially on Rocephin and azithromycin in the ED - Micafungin added for possible fungal infection - Sputum and blood culture negative thus far - MRSA nasal swab and viral PCR both negative - Legionella and strep urine antigen both negative - Fungitell and galactomannan ordered and pending - Infectious disease was consulted and broadened coverage to include anaerobic bacteria with Unasyn IV while continuing azithromycin 500 mg daily, Micafungin was cancelled. - After the episode of acute decompensation, likely due to mucous plugging and CXR reporting worsening pneumonia, antibiotic coverage were broadened by the ICU team to meropenem (gram +/-, anaerobes, pseudomonas) and vanc for the possibility of MRSA pneumonia Disposition: The patient continues to have episodes of increased respiratory requirements. He will likely be here throughout the weekend depending on his response to the antibiotic regimen and overall medical complexity. DVT prophylaxis: heparin 5000u TID Pain Evaluation: Adequate Pain Control Resuscitation Status: CPR: Attempt Resuscitation Attending Statement Alcohol dependence, present on admission. Ongoing. - No significant signs of withdrawal at this time - Continue alcohol withdrawal protocol Seizure disorder, present on admission. Stable. - Continue usual antiepileptic therapy Methamphetamine abuse, episodic, present on admission. Stable. IV drug abuse, history of. Stable. - Chemical dependency counseling provided - Continue to monitor closely The patient was seen and examined together with Dr. Seay on 08/13/2016 and I agree with the history, exam and plan as outlined in the note above. . Vishal Seay DO Aug 13, 2016 21:22 Oscar Renteria MD Aug 14, 2016 07:55
[2016-08-13] MEDS: PARoxetine 20 mg Tablet PO SCH (21:56)
[2016-08-13] MEDS: Heparin 5,000 Unit/mL Inj SUBQ SCH (23:50)
[2016-08-14] VITALS (12 sets, daily range): BP systolic 98–110; BP diastolic 52–80; PULSE 64–107; RESP 18–22; O2SAT 91–99
[2016-08-14] MEDS ORDERED: Meropenem Inj 2,000 MG in 0.9% Sodium Chloride 100 ML IV SCH (00:30)
--- NOTE | 2016-08-14 00:36 | PCM.PHAPRO ---
Progress Date of Service: Aug 14, 2016 right sided flank pain Vancomycin Management Per Pharmacy: Indication: Pneumonia Age: 46 yo Weight: 73 kg Labs: WBC: 20.1->15.6 SrCr: 0.6 mg/dL Lactate: 1.7 Procalcitonin: 2.69 Est CrCl: ~ 120 mL/min Nephrotoxic Risk Factors: None Additional Antibiotics: Meropenem and Azithromycin Micro: MRSA nasal screen neg, blood cultures pending Vitals: HR: 145 on admit and 90s earlier in the day, now in the 70s BP: SBP ~ 100s, DBP ~ 50s RR: 35 on admit, now in the 20s Temp: Febrile on admit, now not febrile Recommendation: Load: Vancomycin 1500 mg IV x 1 Maintenance: Vancomycin 1000 mg IV Q8h Trough: Draw on 08/15/16 @ 1100 prior to 4th maintenance dose. Pharmacy to continue to monitor and adjust dose as needed. Thank You, Josette Alves, Pharm D. Josette Alves Aug 14, 2016 00:36
[2016-08-14 03:08] LABS: BASOPHILS % (AUTO) 0.2 % (0-3); EOSINOPHILS % (AUTO) 1.8 % (0-5); MONOCYTES % (AUTO) 7.1 % (4-12); Mean Corpuscular Hemoglobin 33.1 pg (27.0-35.0); Mean Corpuscular Volume 94.8 fL (81-100); NEUTROPHILS % (AUTO) 63.3 % (40-74); Platelet Count 165 bil/L (150-400)
[2016-08-14] MEDS ORDERED: Vancomycin 1 Gm/200 mL NS Premix IV SCH (04:00)
[2016-08-14] MEDS ORDERED: Vancomycin Inj 1,250 MG in 0.9% Sodium Chloride 250 ML IV SCH (04:00)
--- NOTE | 2016-08-14 06:41 | NUR ---
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 Pt slowly weaned down on O2 through the night. Currently on O2 via Oxymask at 6 Liters, with O2 sats 97% per continuous pulse oximetry. Bilateral lung sounds are diminished and course. No c/o chest pain, Tele SR-ST with HR 60-100 at rest and HR up to 110-120s with activity, then back to baseline when in bed.
[2016-08-14] MEDS: Vancomycin Dose per Pharmacist XX SCH (08:30)
[2016-08-14] MEDS: Thiamine Inj 100 MG in 0.9% Sodium Chloride 100 ML IV SCH (09:15)
[2016-08-14] MEDS: Multivit-Miner-Folic Acid-Iron Tablet PO SCH (09:15)
[2016-08-14] MEDS: Heparin 5,000 Unit/mL Inj SUBQ SCH ×2 (09:16→17:09)
[2016-08-14] MEDS: PHENobarbital 32.4 mg Tablet PO SCH ×2 (09:24→20:55)
[2016-08-14] MEDS: Albuterol-Ipratropium 3 mL Inhalation Solution NEB SCH ×4 (09:51→20:35)
--- NOTE | 2016-08-14 09:56 | PROG NOTE ---
[address] [address] PROGRESS NOTE PATIENT: LIZ BOOKER : 1970 MR#: [id number] ADMIT: 08/12/2016 JOB ID: [id number] DATE: 08/14/2016 INFECTIOUS DISEASE FOLLOW UP NOTE: REASON FOR FOLLOWUP: Left-sided pneumonia in a polysubstance abuser. INTERVAL HISTORY: Overnight the patient had some exciting events. He was ambulating in the [place] and became dyspneic yesterday afternoon and had a coughing jag which produced a large mucous plug followed by some shortness of breath. He calmed down after that and tells me he had a pretty restful night. This morning he denies any fevers or chills but he does have some sweats. States his breathing is gradually getting better. He has no nausea or vomiting. He has a great appetite and he says the food has been sensational including this morning's breakfast. PHYSICAL EXAMINATION: Reveals an afebrile, more comfortable gentleman. Temperature 36.7, blood pressure 101/75, saturating well on Oxy Mask. Respiratory rate is about 16 this morning and unlabored. The patient is alert, oriented, seems calm. Oral cavity negative. Lungs with decreased breath sounds and rales at the left base. Abdomen soft, nontender. No skin rash. LABORATORIES: Include white count down from 20,000 to 11,000, normal differential. Creatinine 0.62. Urinalysis without white cells. Serologic studies include negative HIV and hepatitis C. QuantiFERON Gold is pending. Galactomannan is pending. Urine pneumococcal antigen was negative but sputum grew pneumococcus. The presence of pneumococcus in the sputum does not always indicate infection as it can be normal justo and the Gram stain was not exactly compelling though there was moderate growth on the plates of pneumococcus and I think it is likely that this represents pneumococcal pneumonia. MRSA screen, respiratory viral PCR panel negative. IMAGING: Includes a chest radiograph done yesterday which shows a left-sided pneumonia with effusion. IMPRESSION: This patient likely has pneumococcal pneumonia. There certainly could be a component of aspiration pneumonia in this patient with polysubstance abuse. RECOMMENDATIONS: 1. The same Infectious Disease recommendations for antibiotics as yesterday. 2. I would continue the azithromycin through today which will represent the third day of 500 mg per day dosing and then stop it as he will have received 1.5 g. 3. I would switch the patient back to Unasyn as I note that he was switched to meropenem overnight and this seems overly broad in this patient who came from the community and whom we already seem to have a pathogen. 4. I would continue with the Unasyn for a few days and then transition to oral Augmentin to complete seven days or so of therapy if he has an uneventful course. 5. This case discussed in person with the team.
--- NOTE | 2016-08-14 09:57 | DRSVH ---
PROCEDURE: X-RAY CHEST, TWO VIEWS ([id number]) INDICATIONS: pneumonia TECHNIQUE: 2 views of the chest were acquired. COMPARISON: [facility], CR, XR CHEST 1VW (PORTABLE), 08/13/2016, 17:25. [facility], CR, XR CHEST 2VW, 08/12/2016, 13:41. FINDINGS: Surgical changes and devices: None. Lungs and pleura: Interval increase in consolidation involving the left lung base with probable left basilar pleural effusion. Air bronchograms present. Right lung remains clear. No pneumothorax. Mediastinum: Mediastinal contours are normal. Heart size is normal. Bones and chest wall: No suspicious bony abnormalities. Soft tissues appear unremarkable. IMPRESSION: Increasing consolidation involving the left lung base likely related to pneumonia and the re is a small parapneumonic effusion present. Dictated by: Jerod Vanegas [facility] Interpreted: Zenia Molina MD on 08/14/2016 at 9:54 Transcribed by: JACOBO on 08/14/2016 at 9:56 Approved by: Zenia Molina M.D. on 08/14/2016 at 14:22
[2016-08-14] MEDS: Azithromycin Inj 500 MG in Dextrose 5% w/Vial Mate 250 ML IV SCH (10:04)
--- NOTE | 2016-08-14 11:52 | DRSVH ---
[facility] [address] [place] [address] Echocardiogram Report Name: LIZ BOOKER MStudy Date: 08/14/2016 Height: 71 in Hospital Exam Location: [facility] Weight: 160 lb Gender: Male BSA: 1.9 m2 : 1970 Age: 46 yrs BP: 104/52 mmHg Reason For Study: Respiratory Failure Ordering Physician: HOSPITALIST [facility] Performed By: Claudia Aly Referring Physician: TAIWO CASTELLANOS Interpretation Summary Normal both left and right ventricle size and function. The ejection fraction is 60-65%. Borderline left atrial enlargement. Mild mitral regurgitation. The right ventricular systolic pressure is estimated at 25 mmHg assuming a right atrial pressure of 3 mm Hg. Procedure: A two-dimensional transthoracic echocardiogram with color flow and Doppler was performed. The study quality was technically adequate. There is no prior echocardiogram noted for this patient. The patient was in normal sinus rhythm during the exam. Left Ventricle: The left ventricle is normal in size, wall thickness, and systolic function without any focal wall motion abnormalities. The ejection fraction is estimated to be 60-65%. There are no focal wall motion abnormalities. Assessment of diastolic parameters indicates normal left ventricular diastolic function and normal filling pressures. Right Ventricle: The right ventricle is normal in size and function. Atria: Borderline left atrial enlargement. The right atrium is normal in size. The interatrial septum is intact with no evidence for an atrial septal defect. Mitral Valve: The mitral valve leaflets appear mildly thickened, but open well. There is mild mitral regurgitation. Aortic Valve: The aortic valve is trileaflet. The aortic valve opens well. No aortic regurgitation is present. Tricuspid Valve: The tricuspid valve leaflets are thin and pliable. There is trace tricuspid regurgitation. The right ventricular systolic pressure is estimated at 25 mmHg assuming a right atrial pressure of 3 mm Hg. Pulmonic Valve: The pulmonic valve is not well seen, but is grossly normal. There is trace pulmonic regurgitation. Great Vessels: The aortic root is normal size. The ascending aorta is normal in size. The IVC is of normal diameter and collapses greater than 50% with a sniff. This suggests a low right atrial pressure of 3 mm Hg. Pericardium/ Pleura There is no pericardial effusion. There is no pleural effusion. MMode/2D Measurements & Calculations LVIDd: 4.9 cm RA long axis: 4.8 cm LVOT diam LVIDs: 2.7 cm LA A2 area: 18.5 cm FS: 45.0 % LA A4 area: 18.1 cm RA area: 15.8 cm Ao root diam IVSd: 0.95 cm LA length (vol): 4.4 cm RA vol: 44.3 ml LVPWd: 0.84 cm LA vol: 63.9 ml RA : 23.1 ml/m2 asc Aorta Diam: 3.4 cm LA vol index: 33.3 ml/m2 EDV(MOD-sp2) LV dior. diameter/BSA LV sys. diameter/BSA TAPSE: 2.4 cm (cm/m^2): 2.5 (cm/m^2): 1.4 ESV(MOD-sp2) EF(MOD-sp2) Doppler Measurements & Calculations Ao V2 max: 122.0 cm/sec MV E max rodrigo MV E/A: 1.9 TR max rodrigo Ao max P.0 mmHg : 82.4 cm/sec : 237.0 cm/sec Ao mean P.6 mmHg MV A max rodrgio TR max PG LVOT Max Rodrigo : 43.9 cm/sec : 22.5 mmHg : 110.4 cm/sec PA V2 max : 76.6 cm/sec FABY(I,D): 3.3 cm PA mean PG sev ratio: 0.86 : 1.4 mmHg MV dec time: 0.20 sec Ao V2 mean LV V1 max PG PA V2 mean : 91.8 cm/sec : 57.3 cm/sec Ao V2 VTI: 23.8 cm LV V1 VTMarla GRACIA pr(Accel) : 20.4 cm : 10.5 mmHg FABY(V,D): 3.5 cm2 FABY indexed to BSA (cm^2/m^2): 1.7 Electronically signed by: Concetta Akbar on Reading Physician:08/14/2016 11:52 AM
--- NOTE | 2016-08-14 12:21 | PROG NOTE ---
[address] [address] PROGRESS NOTE PATIENT: LIZ BOOKER : 1970 MR#: [id number] ADMIT: 08/12/2016 JOB ID: [id number] DATE: 08/14/2016 PULMONARY PROGRESS NOTE: The patient is a 46-year-old man with history of polysubstance and alcohol abuse admitted with pneumonia and severe sepsis. INTERVAL HISTORY: He was doing well yesterday, until yesterday evening, when he developed an episode of hypoxia with chest x-ray showing increased left basilar consolidation. He feels a little better today and oxygenation has improved from 10 L yesterday evening back down to 5-6 L on OxyMask currently. Continues to have some chills and sweats but remains afebrile. Continues to have chest pain on the right from his injury. REVIEW OF SYSTEMS: Is as above. PHYSICAL EXAMINATION: Vital signs reviewed. He is afebrile. Pulse 67, respirations 20, BP 101/76, sats 95% on 6 L OxyMask. General: Thin gentleman lying in bed, breathing comfortably. Chest: On exam he has tenderness on the right lateral chest. He has decreased/bronchial breath sounds at the left lung base heard posteriorly. He also has some faint wheezing/rhonchi heard all over the remaining lung schafer. LABORATORIES: Reviewed. WBC is down to 11.2. Also notable for procalcitonin down to 1.5 from 2.69 yesterday. Sputum cultures are growing Strep pneumoniae. Remaining cultures are negative. Chest x-ray today shows persistent left basilar collapse/consolidation but with improvement in remaining infiltrates. ASSESSMENT: 1. Left lower lobe collapse/atelectasis-probably due to mucus plugging. 2. Acute hypoxic respiratory failure on 5-6 L oxygen. 3. Pneumococcal pneumonia. 4. Severe sepsis. 5. History of polysubstance abuse. RECOMMENDATIONS: A 46-year-old man with history of prior IV drug use, alcohol and marijuana use, presenting with severe sepsis, community-acquired pneumonia. His sputum is now growing Strep pneumoniae. Chest CT shows tree-in-bud changes, more so all along the left lung, as well as dense consolidation in the lingula. I think this is most likely pneumococcal pneumonia. I put an ultrasound on his chest to see if there is any evidence of pleural effusion but it seems to be all consolidation at the left lung base without any evidence of effusion. I asked the patient to aggressively do pulmonary toilet including incentive spirometer and Acapella. I also asked RT to start doing some chest physiotherapy every 4 hours to the left lower lobe to try to open this up. I think part of the reason is his injury to the right chest because of which he is not taking deep breaths and causing atelectasis. We broadened his antibiotics last night because of decompensation and concern for resistant bacteria but I agree with going back to his prior regimen currently, which Dr. Bustillos as already done. Most likely we can switch to coverage for Strep pneumoniae alone pretty soon. Pulmonary service is available for questions. Dr. Payan takes over for the weekend, so please call him for any problems with the patient.
--- NOTE | 2016-08-14 14:28 | NUR ---
Ambulate w/Nsg Pt is released/encourage to ambulate w/nsg 2-3x/day w/o AD CGA/SBA prn. PT will see 1-2 more times for stair navigation training.
--- NOTE | 2016-08-14 14:35 | PCM.PNMED ---
Subjective Date of Service Aug 14, 2016 Subjective Overnight there were no acute events. The patient reports feeling better this morning, being able to eat breakfast without using his oxymask and not immediately out of breath. He is still in pain and coughs some when breathing but feels better. He denies any fevers, chills, chest pain, nausea, vomiting, hemoptysis. Exam Vital Signs Vital Sign - Last Date Time Temp Pulse Resp B/P Pulse Ox O2 Delivery O2 Flow Rate FiO2 08/14/16 14:20 107 Room Air 08/14/16 13:12 18 94 08/14/16 12:00 36.7 101/54 6.00 Intake and Output 08/13/16 08/13/16 08/14/16 Cumulative From/Thru 15:00 23:00 07:00 08/12/16 13:10 - 08/14/16 06:07 Intake Total 1973 ml 1747 ml 8208 ml Output Total 1050 ml 1525 ml 4135 ml Balance 923 ml 222 ml 4073 ml Intake Oral 1200 ml 711 ml 2991 ml IV Total 773 ml 1036 ml 5217 ml Output Urine Total 1050 ml 1525 ml 4135 ml # Voids 5 5 Exam General: Disheveled male appearing older than stated age, in no acute respiratory distress off his oxymask eating breakfast HEENT: Normocephalic, atraumatic. PERRLA, EOMI with injected conjunctiva. Membranes moist and pink without cobblstoning. Neck: Supple with full range of motion. No JVD. No lymphadenopathy or thyromegaly. CV: tachycardic but regular rhythm with no murmurs/rubs/gallops appreciated Pulm: Diffuse wheezing across both lungs bilaterally with a noticable decrease of air movement in the left base. Tenderness on the right posterolateral ribs when ascultating. No accessory muscle use. Abd: Soft, nontender, nondistended. Umbilical hernia, bowel tones present. No organomegaly. Extremities: Discoloration of fingertips with dirt under all fingernails bilaterally. No clubbing or cyanosis. Skin: Normal temperature, turgor. Discolored fingertips on both UE. Neurological: A&Ox3, CN2-12 intact. No tremor. Muscle strength normal in both UE /LE bilaterally. Psychiatric: Normal mood and affect. IVs and Medications Medications Reviewed: Medications were reviewed in detail Lab and Diagnostics Result Diagram: 08/14/16 0245 08/14/16 0245 Microbiology MRSA screen negative Respiratory PCR panel negative Blood cultures negative x2d Sputum culture has insufficient growth thus far X-Rays, CTs and MRIs Chest XR, 08/14 IMPRESSION: Increasing consolidation involving the left lung base likely related to pneumonia and there is a small parapneumonic effusion present. Dictated by: Jerod Vanegas RRA Interpreted: Zenia Molina MD on 08/14/2016 at 9:54 Transcribed by: JACOBO on 08/14/2016 at 9:56 Approved by: Zenia Molina M.D. on 08/14/2016 at 14:22 Chest XR, 08/13 IMPRESSION: Increased left hemithorax opacities most consistent with worsening pneumonia and new, superimposed effusion. Dictated by: Francesca Garcia M.D. on 08/13/2016 at 18:19 Approved by: Francesca Garcia M.D. on 08/13/2016 at 18:21 CT CHEST, ABDOMEN AND PELVIS WITH CONTRAST IMPRESSION: 1. Dense consolidation of the lingular base and diffuse tree in bud radiopacities throughout the mid and left lower lung consistent with multi- lobar pneumonia and diffuse endobronchial spread of infection. Debris or fluid is also present within the left main bronchus and distal branches in the mid and lower lung. 2. No thoracic or abdominal trauma after recent fall. Dictated by: Zenia Molina M.D. on 08/12/2016 at 15:34 X-RAY CHEST, TWO VIEWS IMPRESSION: Left lower lobe and lingular pneumonia. Recommend followup to resolution. Dictated by: Tramaine Luu M.D. on 08/12/2016 at 14:07 Cardiac Echo Impressions Echo 08/14/16 Normal both left and right ventricle size and function. The ejection fraction is 60-65%. Borderline left atrial enlargement. Mild mitral regurgitation. Assessment & Plan Mr. Alex Anderson is a very pleasant 46-year-old gentleman with a past medical history significant for IVDU, ETOH use disorder, and seizure disorder admitted to [facility] for L lobe pneumonia. He is receiving IV antibiotics and placed on CIWA protocol. Left sided community acquired lobar pneumonia, present on admission, acute, ongoing - Patient started initially on Rocephin and azithromycin in the ED - Blood cultures negative x48h - MRSA nasal swab and viral PCR both negative - Legionella and strep urine antigen both negative - Fungitell and galactomannan ordered and pending - Sputum culture positive for strep pneumo, will refine coverage per ID -Pt decompensated acutely yesterday evening and antibiotic coverage was broadened to meropenem (gram +/-, anaerobes, pseudomonas) and vanc for the possibility of MRSA pneumonia -ID recommends: Azithromycin 500mg daily, last dose 08/14 Unasyn 3000mg q 6 for a couple more days with transition to augmentin PO for 7 days total -Pt worked with PT today 08/14 and kept his sats in the low 90's while walking without o2 -Dr. Rubi recommends aggressive pulmonary toilet with acapella and incentive spirometer, RT to do chest physiotherapy q4h Disposition: The patient did well without oxygen during his PT walk today, although he could only make it down the hallway. He will likely be here into the weekend with discharge home depending on his response to the revised antibiotic regimen and frequent respiratory physiotherapy. DVT prophylaxis: heparin 5000u TID Resuscitation Status: CPR: Attempt Resuscitation Time spent 25 minutes Attending Statement Patient was seen and examined at bedside in addition I directly supervised provided by Resident physician, Dr. Seay. I agree with above documentation. Vishal Seay DO Aug 14, 2016 14:35 Fausto Pillai DO Aug 15, 2016 13:40
[2016-08-14] MEDS: Ampicillin-Sulbactam Inj 3,000 MG in 0.9% Sodium Chloride 100 ML IV SCH ×2 (14:37→20:54)
--- NOTE | 2016-08-14 15:52 | NUR ---
Social Work: Screen D: Per EMR review, pt is a 46 year old male admitted for Pneumonia, Sepsis. Pt is [employer] insurance. PCP is not listed. No NOK listed. HAT BINDER left copy of Advanced directives at bedside. Pt sleeping at this time. Readmit score is low, 2/8. Pt lives in [place] with family. Pt is I at baseline. Pt has a history of ETOH and IV Meth Use per MD and RN in am rounds. Order placed for CD assessment. HAT BINDER attempted to meet with pt to complete assessment however pt sleeping at this time. A: Pt who is I at baseline. P: Evolving; Anticipate pt to discharge home via POV; HAT BINDER to continue to follow to assess for discharge needs and meet with pt to provide CD resources. NIVIA [place]
--- NOTE | 2016-08-14 17:34 | NUR ---
Respiratory Pt unavailable for 1600 CPT, when Rt checked again at this time Pt is asleep. Will have NOC RT revisit at next scheduled time, 1999
--- NOTE | 2016-08-14 18:33 | NUR ---
Activity / Oxygenation: Patient was able to tolerate ambulation (175 feet) in halls with PT on RA and maintained SpO2 mid 90's. When patient is at rest in bed SpO2 is low 90's on RA, but when patient is asleep SpO2 drops to mid 80's on RA. Patient placed on 4L Oxymask while sleeping and is maintaining SpO2 mid to high 90's.
[2016-08-14] MEDS: PARoxetine 20 mg Tablet PO SCH (20:55)
[2016-08-15] VITALS (12 sets, daily range): BP systolic 106–112; BP diastolic 60–72; PULSE 63–83; RESP 16–24; O2SAT 93–100
[2016-08-15] MEDS: Heparin 5,000 Unit/mL Inj SUBQ SCH ×3 (00:14→16:24)
[2016-08-15] MEDS: Albuterol-Ipratropium 3 mL Inhalation Solution NEB SCH ×5 (02:38→20:41)
[2016-08-15] MEDS: Ampicillin-Sulbactam Inj 3,000 MG in 0.9% Sodium Chloride 100 ML IV SCH ×4 (02:43→20:12)
[2016-08-15 02:51] LABS: BASOPHILS % (AUTO) 0.5 % (0-3); EOSINOPHILS % (AUTO) 3.1 % (0-5); MONOCYTES % (AUTO) 9.1 % (4-12); Mean Corpuscular Hemoglobin 32.6 pg (27.0-35.0); Mean Corpuscular Volume 94.3 fL (81-100); NEUTROPHILS % (AUTO) 52.9 % (40-74); Platelet Count 194 bil/L (150-400)
--- NOTE | 2016-08-15 06:40 | NUR ---
Respiratory Pt desat down to 74% while sleeping on O2 @ 4L per Oxymask. O2 increased to 6 liters, Resp Tx called to do chest P.T. Then Pt had another episode where he desated down to the 70's, O2 increased to 8 Liters and Resp Tx came and did a Neb treatment. O2 then titrated down to 6L Oxymask and SpO2 sats now 96-98% with no further episodes of desaturation. Bilateral lung sounds are diminished and course.
[2016-08-15] MEDS: Multivit-Miner-Folic Acid-Iron Tablet PO SCH (07:50)
[2016-08-15] MEDS: PHENobarbital 32.4 mg Tablet PO SCH ×2 (09:00→20:21)
--- NOTE | 2016-08-15 09:20 | DRSVH ---
PROCEDURE: X-RAY CHEST, TWO VIEWS ([id number]) INDICATIONS: pneumonia TECHNIQUE: 2 views of the chest were acquired. COMPARISON: Merged With [facility], CR, XR CHEST 2VW, 08/14/2016, 9:47. FINDINGS: Surgical changes and devices: None. Lungs and pleura: There are persistent but decreased left basilar lower lobe consolidation and associ ated left pleural effusion. A small right pleural effusion is also noted. Mediastinum: Mediastinal contours are unchanged. Heart size is normal. Bones and chest wall: No suspicious bony abnormalities. Soft tissues appear unremarkable. IMPRESSION: 1. Persistent but decreased left basilar consolidation and small pleural effusion. Dictated by: Pipo Young M.D. on 08/15/2016 at 9:11 Approved by: Pipo Young M.D. on 08/15/2016 at 9:13
--- NOTE | 2016-08-15 10:21 | PCM.PNMED ---
Subjective Date of Service Aug 15, 2016 Subjective Overnight the patient had a couple desaturations into the 70's. He received a respiratory treatment with noticeable improvement. This morning he is sitting upright without oxygen with an 02 sat of 93%. His only complaint is the tenderness to his right posterolateral flank. He denies any episodes of fever, chills, N/V, chest pain or hemoptysis. Exam Vital Signs Vital Sign - Last Date Time Temp Pulse Resp B/P Pulse Ox O2 Delivery O2 Flow Rate FiO2 08/15/16 08:20 80 18 93 Room Air 08/15/16 07:35 36.4 108/63 8.00 Intake and Output 08/14/16 08/14/16 08/15/16 Cumulative From/Thru 15:00 23:00 07:00 08/12/16 13:10 - 08/15/16 05:22 Intake Total 3092 ml 1188 ml 00077 ml Output Total 1400 ml 1000 ml 6535 ml Balance 1692 ml 188 ml 5953 ml Intake Oral 2432 ml 866 ml 6289 ml IV Total 660 ml 322 ml 6199 ml Output Urine Total 1400 ml 1000 ml 6535 ml # Voids 5 Exam General: Disheveled male appearing older than stated age, in no acute respiratory distress sitting upright without oxygen HEENT: NCAT. PERRLA, EOMI with injected conjunctiva. Membranes moist and pink without cobblestoning. Neck: Supple with full range of motion. No JVD. No lymphadenopathy or thyromegaly. CV: RRR with no murmurs/rubs/gallops appreciated Pulm: Coarse breath sounds across all lung schafer bilaterally with decreased air movement in left base. shaft tender on his posterolateral right side. No accessory muscle use Abd: Soft, nontender, nondistended. Umbilical hernia, bowel tones present. No organomegaly. Extremities: Discoloration of fingertips with dirt under all fingernails bilaterally. No clubbing or cyanosis. Skin: Normal temperature, turgor. Discolored fingertips on both UE. Neurological: A&Ox3, CN2-12 intact. No tremor. Muscle strength normal in both UE /LE bilaterally. Psychiatric: Normal mood and affect IVs and Medications Medications Reviewed: Medications were reviewed in detail Lab and Diagnostics Result Diagram: 7/1/17 0245 7/1/17 0245 Microbiology MRSA screen negative Respiratory PCR panel negative Blood cultures negative x2d Sputum culture has insufficient growth thus far X-Rays, CTs and MRIs Chest XR 08/15 IMPRESSION: 1. Persistent but decreased left basilar consolidation and small pleural effusion. Dictated by: Pipo Young M.D. on 08/15/2016 at 9:11 Approved by: Pipo Young M.D. on 08/15/2016 at 9:13 Chest XR, 08/14 IMPRESSION: Increasing consolidation involving the left lung base likely related to pneumonia and there is a small parapneumonic effusion present. Dictated by: Jerod Vanegas RRA Interpreted: Zenia Molina MD on 08/14/2016 at 9:54 Transcribed by: JACOBO on 08/14/2016 at 9:56 Approved by: Zenia Molina M.D. on 08/14/2016 at 14:22 Chest XR, 08/13 IMPRESSION: Increased left hemithorax opacities most consistent with worsening pneumonia and new, superimposed effusion. Dictated by: Francesca Garcia M.D. on 08/13/2016 at 18:19 Approved by: Francesca Garcia M.D. on 08/13/2016 at 18:21 CT CHEST, ABDOMEN AND PELVIS WITH CONTRAST IMPRESSION: 1. Dense consolidation of the lingular base and diffuse tree in bud radiopacities throughout the mid and left lower lung consistent with multi- lobar pneumonia and diffuse endobronchial spread of infection. Debris or fluid is also present within the left main bronchus and distal branches in the mid and lower lung. 2. No thoracic or abdominal trauma after recent fall. Dictated by: Zenia Molina M.D. on 08/12/2016 at 15:34 X-RAY CHEST, TWO VIEWS IMPRESSION: Left lower lobe and lingular pneumonia. Recommend followup to resolution. Dictated by: Tramaine Luu M.D. on 08/12/2016 at 14:07 Cardiac Echo Impressions Echo 08/14/16 Normal both left and right ventricle size and function. The ejection fraction is 60-65%. Borderline left atrial enlargement. Mild mitral regurgitation. Assessment & Plan Mr. Alex Anderson is a very pleasant 46-year-old gentleman with a past medical history significant for IVDU, ETOH use disorder, and seizure disorder admitted to [facility] for L lobe pneumonia. He is receiving IV antibiotics and placed on CIWA protocol. Left sided community acquired lobar pneumonia, present on admission, acute, ongoing - Blood cultures negative x72h - MRSA nasal swab and viral PCR both negative - Legionella and strep urine antigen both negative - Fungitell and galactomannan negative - Sputum culture positive for strep pneumo -Pt had a couple desaturations at night on 08/14, falling into the 70's that improved with duoneb treatment -ID recommends: Azithromycin 500mg daily, last dose given 08/14 Unasyn 3000mg q 6 while hospitalized with transition to augmentin per ID for a total of 10 days -Pt utilizing acapella and incentive spirometer as tolerated Disposition: The patient had some desaturations overnight (08/14) that required treatment but is maintaining sats off oxygen this afternoon. He will likely be here into the weekend with discharge home depending on his response to the revised antibiotic regimen and frequent respiratory physiotherapy. DVT prophylaxis: heparin 5000u TID Resuscitation Status: CPR: Attempt Resuscitation Time spent 25 minutes Attending Statement I have seen and evaluated patient at bedside in addition to directly supervising care provided by resident physician. I agree with above documentation from 08/15/[address] Seay. Vishal Seay DO Aug 15, 2016 10:21 Fausto Pillai DO Aug 16, 2016 15:43
[2016-08-15] MEDS ORDERED: Vancomycin Serum Trough XX ONE (11:00)
--- NOTE | 2016-08-15 11:14 | PROG NOTE ---
[address] [address] PROGRESS NOTE PATIENT: LIZ BOOKER : 1970 MR#: [id number] ADMIT: 08/12/2016 JOB ID: [id number] INFECTIOUS DISEASE FOLLOWUP: DATE: 08/15/2016 REASON FOR FOLLOWUP: Left-sided pneumococcal/aspiration pneumonia. INTERIM HISTORY: Recall that this is a patient with polysubstance abuse who presented with right-sided chest pain after a fall where he banged his ribs on the right side but also had signs and symptoms consistent with left-sided pneumonia. We have an isolate that is growing pneumococcus at this point. INTERVAL HISTORY: Overnight, the patient said he continues to have the right-sided chest pain, especially when he takes a deep breath at the site of the trauma. He has a minimal cough at this point. No additional fevers or chills, though he has diffuse sweats. In general he is feeling better. His appetite is pretty good at this point. PHYSICAL EXAMINATION: Reveals an increasingly comfortable gentleman. Temp 36.4, pulse 80, respiratory rate in the teens, blood pressure 108/63, saturating well on room air. Examination of the mental status reveals it to be clear. There is no tremor or evidence of any withdrawal syndrome. Oral cavity negative. Lungs with rales at the left base but they have better air movement there than previously. Abdomen negative. No skin rash. LABORATORIES: Include a white count which is normalized to 8300. There is a normal diff. His creatinine is 0.57. His LFTs are normal. Procalcitonin is down to 1.05. Serologies are negative including hepatitis C, Fungitell and galactomannan and QuantiFERON Gold still pending. Respiratory viral PCR panel negative. Blood cultures negative but sputum grew an pneumococcus which turns out to be pansensitive with ERNESTINE less than 0.06 to penicillin. Chest x-ray last done yesterday reveals progressive consolidation. The patient just went for a chest x-ray this morning but, unfortunately, it is not yet available for review. IMPRESSION: Clinically this patient is steadily improving. His chest x-ray may lag but I think that he clearly has pneumococcal pneumonia and there could be a component of aspiration as well in this substance abusing gentleman but he is on the mend. RECOMMENDATIONS: 1. I would continue with the IV Unasyn which I think is a good drug in this situation until the patient is ready to leave. 2. Discharge, he should receive Augmentin to complete Augmentin 875 p.o. b.i.d. to complete about a 10-day total course. Note that he has already been here a total of four days so basically he could leave if he left tomorrow with a five-day prescription for Augmentin would be more than enough. Thank you very much. ID will go ahead and sign off at this time.
--- NOTE | 2016-08-15 13:31 | NUR ---
Status Patient progressing towards planned outcomes. Oxygen saturation maintained >92% on room air. Denies SOA. Pulmonary hygiene and acapella encouraged during wake hours. Vital signs stable. Tolerating activity, ambulated halls with SBA. Pt voices improvement in overall strength. Back discomfort controlled with PRN pain medications. Good intake with meals, 75%-100%. CIWAs < 10. Will continue to monitor.
--- NOTE | 2016-08-15 18:07 | PROG NOTE ---
[address] [address] PROGRESS NOTE PATIENT: LIZ BOOKER : 1970 MR#: [id number] ADMIT: 08/12/2016 JOB ID: [id number] DATE: 08/15/2016 PROBLEM LIST: 1. Streptococcus pneumoniae pneumonia. 2. Alcohol abuse. 3. Polysubstance abuse including methamphetamine. 4. Chest wall trauma secondary to fall. SUBJECTIVE: Feeling better. Breathing more comfortably. Ambulating around nursing unit though with assistance due to some unsteadiness. Coughing up variously colored phlegm, being a yellow- green, occasionally tinged with blood. Continues to have chest wall pain on the right, maybe abating somewhat. Appetite improving. States that he has not had any alcohol withdrawal symptoms. OBJECTIVE: Temperature 36.8. Pulse 68-83, respiratory rate 18, blood pressure 106/60, O2 sat on room air is 94%. General appearance: No acute distress. Somewhat weak-appearing. Eyes: Conjunctivae are pink. No scleral icterus. Nose: Moderate erythema. Some edema. Throat: Mild erythema. Chest: Fairly good breath sounds. Somewhat diminished at the bases. Crackles at the left lower lung field. Chest wall tenderness in the posterior axillary line on the right, in the mid chest, maybe T5 through 9 or so. No use of accessory muscles. No crepitus. No evidence of flail. Heart: Regular rhythm. Heart tones normal. Abdomen soft. Nontender. Bowel tones present. Extremities: No pretibial edema. LABORATORY: Shows a white count of 8300, which is decreasing. Normal differential. Hemoglobin stable at 12.5. Platelet count rising at 194,000. Lytes are normal. BUN 6, creatinine 0.5 and stable. Transaminases, bilirubin, and alkaline phos normal. Procalcitonin 1.05 and falling. Albumin stable at 3.1. Chest x-ray shows increased opacification at the left lower lung field. Seems somewhat reticular nodular. Better aeration than previous films which showed more of a consolidated pattern. ASSESSMENT: 1. Pneumococcal pneumonia. Seems to be improving. White count falling. Differential normal. Procalcitonin falling and symptoms improving. Off supplemental oxygen. Starting to ambulate. Appetite improving. 2. Chest wall pain secondary to trauma, relatively stable. No evidence of chest wall instability. 3. Alcohol abuse. Controlled. Not having any particular problems with that. 4. Polysubstance abuse. Seems under control. 5. Atelectasis. Likely due to mucus plugging. Doing well with the Acapella, bringing up some thick secretions. Getting a bit easier for him to do this. PLAN: 1. Continue current regimen. 2. Continue aggressive pulmonary toilet at this point consisting of ambulation and use of the Acapella. Doing well from a respiratory standpoint. Will stop following on a regular basis. Please feel free to contact the pulmonary service if problems arise in the future.
[2016-08-15] MEDS: PARoxetine 20 mg Tablet PO SCH (20:21)
[2016-08-16] VITALS (8 sets, daily range): BP systolic 104–111; BP diastolic 62–68; PULSE 63–88; RESP 16–20; O2SAT 91–95
[2016-08-16] MEDS: Heparin 5,000 Unit/mL Inj SUBQ SCH ×3 (01:57→16:02)
[2016-08-16] MEDS: Ampicillin-Sulbactam Inj 3,000 MG in 0.9% Sodium Chloride 100 ML IV SCH ×4 (02:03→20:43)
[2016-08-16 02:44] LABS: BASOPHILS % (AUTO) 0.5 % (0-3); MONOCYTES % (AUTO) 9.5 % (4-12); Mean Corpuscular Hemoglobin 32.5 pg (27.0-35.0); Mean Corpuscular Volume 94.1 fL (81-100); Platelet Count 230 bil/L (150-400)
--- NOTE | 2016-08-16 06:07 | NUR ---
Pain/O2 Pt c/o 09/24 right lateral back pain, Tylenol had no effect, given PRN oxycodone x1 and pt had no further complaints overnight, appeared to sleep comfortably. Sats maintaining 93% on RA until this morning around 0500, sats down to low 80s, was placed on oxymask up to 8L, pt sat up and coughed a few times. Once sats came back up, O2 was titrated down, currently set at 2L, sats mid 90s, monitored on [facility] [employer].
[2016-08-16] MEDS: Albuterol-Ipratropium 3 mL Inhalation Solution NEB SCH ×4 (08:26→20:46)
[2016-08-16] MEDS: PHENobarbital 32.4 mg Tablet PO SCH ×2 (09:19→20:53)
[2016-08-16] MEDS: Multivit-Miner-Folic Acid-Iron Tablet PO SCH (09:19)
--- NOTE | 2016-08-16 11:58 | PCM.PNMED ---
Subjective Date of Service Aug 16, 2016 Subjective Overnight events: Patient had an episode of Shortness of breath overnight with sats 99% on 8L. This morning he is sitting upright, 02 sats of 93% on R%. His only complaint is the tenderness to his right posterolateral flank. He denies any episodes of fever, chills, N/V, chest pain or hemoptysis. Exam Vital Signs Vital Sign - Last Date Time Temp Pulse Resp B/P Pulse Ox O2 Delivery O2 Flow Rate FiO2 08/16/16 03:05 63 20 104/65 95 Room Air 08/15/16 19:57 36.6 08/15/16 07:35 8.00 Intake and Output 08/15/16 08/15/16 08/16/16 Cumulative From/Thru 15:00 23:00 07:00 08/12/16 13:10 - 08/16/16 06:25 Intake Total 1768 ml 260 ml 54890 ml Output Total 1325 ml 7860 ml Balance 443 ml 260 ml 6656 ml Intake Oral 1500 ml 7789 ml IV Total 268 ml 260 ml 6727 ml Output Urine Total 1325 ml 7860 ml # Voids 5 Exam General: Disheveled male appearing older than stated age, in no acute respiratory distress sitting upright without oxygen HEENT: NCAT. PERRLA, EOMI with injected conjunctiva. Membranes moist and pink without cobblestoning. Neck: Supple with full range of motion. No JVD. No lymphadenopathy or thyromegaly. CV: RRR with no murmurs/rubs/gallops appreciated Pulm: Coarse breath sounds across all lung schafer bilaterally with decreased air movement in left base. 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 No accessory muscle use Abd: Soft, nontender, nondistended. Umbilical hernia, bowel tones present. No organomegaly. Extremities: Discoloration of fingertips with dirt under all fingernails bilaterally. No clubbing or cyanosis. Skin: Normal temperature, turgor. Discolored fingertips on both UE. Neurological: A&Ox3, CN2-12 intact. No tremor. Muscle strength normal in both UE /LE bilaterally. Psychiatric: Normal mood and affect IVs and Medications Medications Reviewed: Medications were reviewed in detail Lab and Diagnostics Result Diagram: 08/16/165 08/16/16234 Microbiology MRSA screen negative Respiratory PCR panel negative Blood cultures negative x2d Sputum culture has insufficient growth thus far X-Rays, CTs and MRIs Chest XR 08/15 IMPRESSION: 1. Persistent but decreased left basilar consolidation and small pleural effusion. Dictated by: Pipo Young M.D. on 08/15/2016 at 9:11 Approved by: Pipo Young M.D. on 08/15/2016 at 9:13 Chest XR, 08/14 IMPRESSION: Increasing consolidation involving the left lung base likely related to pneumonia and there is a small parapneumonic effusion present. Dictated by: Jerod Vanegas RRA Interpreted: Zenia Molina MD on 08/14/2016 at 9:54 Transcribed by: JACOBO on 08/14/2016 at 9:56 Approved by: Zenia Molina M.D. on 08/14/2016 at 14:22 Chest XR, 08/13 IMPRESSION: Increased left hemithorax opacities most consistent with worsening pneumonia and new, superimposed effusion. Dictated by: Francesca Garcia M.D. on 08/13/2016 at 18:19 Approved by: Francesca Garcia M.D. on 08/13/2016 at 18:21 CT CHEST, ABDOMEN AND PELVIS WITH CONTRAST IMPRESSION: 1. Dense consolidation of the lingular base and diffuse tree in bud radiopacities throughout the mid and left lower lung consistent with multi- lobar pneumonia and diffuse endobronchial spread of infection. Debris or fluid is also present within the left main bronchus and distal branches in the mid and lower lung. 2. No thoracic or abdominal trauma after recent fall. Dictated by: Zenia Molina M.D. on 08/12/2016 at 15:34 X-RAY CHEST, TWO VIEWS IMPRESSION: Left lower lobe and lingular pneumonia. Recommend followup to resolution. Dictated by: Tramaine Luu M.D. on 08/12/2016 at 14:07 Cardiac Echo Impressions Echo 08/14/16 Normal both left and right ventricle size and function. The ejection fraction is 60-65%. Borderline left atrial enlargement. Mild mitral regurgitation. Assessment & Plan Mr. Alex Anderson is a very pleasant 46-year-old gentleman with a past medical history significant for IVDU, ETOH use disorder, and seizure disorder admitted to [facility] for L lobe pneumonia. He is receiving IV antibiotics and placed on CIWA protocol. Left sided community acquired lobar pneumonia, present on admission, acute, ongoing - Blood cultures negative x72h - MRSA nasal swab and viral PCR both negative - Hep B/C, HIV, fungal antibodies pending. - Legionella and strep urine antigen both negative - Fungitell and galactomannan negative - Sputum culture positive for strep pneumo - Pt had a couple desaturations at night on 08/14, falling into the 70's that improved with duoneb treatment - ID recommends: Azithromycin 500mg daily, last dose given 08/14 Unasyn 3000mg q 6 while hospitalized with transition to augmentin per ID for a total of 10 days -Pt utilizing acapella and incentive spirometer as tolerated Alcohol use disorder, present on admission. Active - CIWA with IV diazepam Seizure disorder - Continue home phenobarbital Tobacco use disorder. - Nicotine patch. Acetaminophen for mild pain when necessary. Bowel regimen Senna and MiraLAX scheduled and PRN. Zofran when necessary for nausea and vomiting. SubQ heparin for now. SCDs in place. High-risk medications: IV diazepam Disposition: The patient had some desaturations overnight (08/14) that required treatment but is maintaining sats off oxygen this afternoon. He will likely be here into the weekend with discharge home depending on his response to the revised antibiotic regimen and frequent respiratory physiotherapy. Pain Evaluation: Adequate Pain Control Resuscitation Status: CPR: Attempt Resuscitation Time spent 25 minutes Attending Statement I have seen and evaluated patient at bedside addition to directly supervising care provided by resident physician Dr. Moreno. I agree with above documentation from evaluation on 08/16/2016 Further discussion with patient and pulmonology has yielded a plan where we will observe patient 1 more night to evaluate for possible recurrent nocturnal hypoxia. Should patient prove stable he may be discharged home tomorrow with only antibody therapy for his community acquired pneumonia, should hypoxia prove persistent may consider arrangement of home oxygen and consideration of outpatient evaluation for possible sleep disorder as yet undiagnosed. AUGUSTA MORENO DO Aug 16, 2016 06:41 Fausto Pillai DO Aug 16, 2016 18:46
--- NOTE | 2016-08-16 13:41 | PROG NOTE ---
[address] [address] PROGRESS NOTE PATIENT: LIZ BOOKER : 1970 MR#: [id number] ADMIT: 08/12/2016 JOB ID: [id number] DATE: 08/16/2016 PULMONARY FOLLOWUP NOTE: PROBLEM LIST: 1. Streptococcus pneumoniae pneumonia. 2. Alcohol abuse. 3. Polysubstance abuse including methamphetamine. 4. Chest wall trauma secondary to fall. 5. Schizophrenia. SUBJECTIVE: Feeling quite a bit better. Took two laps of the nursing station without difficulty. Continues to cough up a fair amount of phlegm but the phlegm is clear. Again got somewhat hypoxemic last night. The report is that he got into the mid 80s. Currently oxygenation improving and he is feeling well. OBJECTIVE: Temperature 36.9, pulse mid 60s, respiratory rate 16, blood pressure 108/62. I and O shows 2.9 L in, 2.3 L out. General appearance: Looks remarkably well. States he has a little bit of stamina issues but otherwise feeling well. Chest: Good breath sounds bilaterally. There are some crackles at the left base, maybe a very few at the right base, with a somewhat leathery quality to the adventitial sounds at the right base. No wheeze. No use of accessory muscles. Heart: Regular rhythm. Heart tones normal. Extremities: No pretibial edema. LABORATORY DATA: Shows a white count of 8100 with a normal differential. Hemoglobin stable at 13.7. Platelet count rising to 230,000. Lytes are normal. Total bilirubin, transaminases, and alkaline phosphatase normal. ASSESSMENT: Streptococcus pneumoniae pneumonia. Clinically improving. Radiograph has been improving. Clinically doing well. Sputum clearing. Still with these episodes of hypoxemia at night. Last night he was in the 80s, the day before 70s. Whether this is manufacturers representative of the pneumonia or whether he has underlying nocturnal hypoxemia is unclear. Would watch him again tonight. If he has a problem at night, I think he can probably go home with some supplemental oxygen with followup maybe in the sleep lab, maybe with his primary physician. He does have a primary physician here and does have support going to a private home with the light industrial supervisor being registered nurse willing to help him, and he says he has a handful of friends that would help as well. PLAN: 1. Continue current regimen of medications. 2. Check nocturnal oxygen tonight. If it is normal he can probably go home. If he does desaturate, might consider sending him home with some nocturnal oxygen but that would require a bit further evaluation, maybe with sleep lab, maybe with his primary physician. He does have followup with his primary physician in the [facility] on August 25.
--- NOTE | 2016-08-16 17:50 | NUR ---
Activity/Oxygen/Drug Rehab/ Transfer of care: Patient ambulating in halls and in room Ind., strong steady gait, denies CP or dizziness. States breathing is improving overall and only feels mildly SOB when lying down. SpO2: mid to high 90's on RA. SpO2 drops to mid to high 80's when sleeping and requires 2-3L oxymask to keep sats at mid 90's. Patient expressed he would like to enter an inpatient rehab facility at discharge. radiation control worker was notified and stated she would look into it. Patient pleasant and cooperative with care. Transfer of care: report given to Shikha Bergman RN.
--- NOTE | 2016-08-16 18:46 | NUR ---
Pt transferred to new RN Received report from Shayna KHAN at approximately 1650 Addendum: 08/16/16 at 1928 by HORTENSIA SINCLAIR RN Pt visiting with friend and eating. Care continues.
[2016-08-16] MEDS: PARoxetine 20 mg Tablet PO SCH (20:25)
[2016-08-17] MEDS: Heparin 5,000 Unit/mL Inj SUBQ SCH ×2 (01:03→09:31)
[2016-08-17] MEDS: Ampicillin-Sulbactam Inj 3,000 MG in 0.9% Sodium Chloride 100 ML IV SCH ×2 (03:07→09:30)
[2016-08-17 05:21] VITALS: BP 111/62; PULSE 87; RESP 18; O2SAT 89
--- NOTE | 2016-08-17 05:21 | NUR ---
Cough/Oxygenation Pt currently on 3L oxymask with Sp02 in the mid s. No reports of SOB. Cough is intermittent with medium amounts of yellow thick sputum.
[2016-08-17 07:42] VITALS: PULSE 90; RESP 18; O2SAT 91
[2016-08-17] MEDS: Albuterol-Ipratropium 3 mL Inhalation Solution NEB SCH (07:42)
[2016-08-17 07:58] LABS: BASOPHILS % (AUTO) 0.5 % (0-3); EOSINOPHILS % (AUTO) 2.5 % (0-5); MONOCYTES % (AUTO) 8.5 % (4-12); Mean Corpuscular Hemoglobin 32.7 pg (27.0-35.0); Mean Corpuscular Volume 93.9 fL (81-100); NEUTROPHILS % (AUTO) 70.1 % (40-74); Platelet Count 283 bil/L (150-400)
[2016-08-17 09:30] VITALS: BP 110/66; PULSE 68; RESP 18; O2SAT 96
[2016-08-17] MEDS: Multivit-Miner-Folic Acid-Iron Tablet PO SCH (09:30)
[2016-08-17] MEDS: PHENobarbital 32.4 mg Tablet PO SCH (09:50)
[2016-08-17] MEDS ORDERED: PHEN64.8 PO (10:22)
[2016-08-17] MEDS ORDERED: AMOX-366 PO (10:22)
[2016-08-17] MEDS ORDERED: HAL5 PO (10:22)
[2016-08-17] MEDS ORDERED: BENZ0.5T3 PO (10:22)
--- NOTE | 2016-08-17 10:34 | PCM.DIMED ---
Vishal Seay DO 08/17/16 1034: Discharge Instructions Date of Service Aug 17, 2016 Dates of Hospitalization Aug 12, 2016 at 15:33 Discharge Diagnosis Discharge Diagnosis Left sided community acquired lobar pneumonia Alcohol use disorder Seizure disorder Tobacco use disorder. Medication Instructions Additional med instructions In addition to your normal medications, take your antibiotic (Augmentin 875mg BID) for 4 more days. Diet Discharge Diet: No restrictions Activity Discharge Activity: No restrictions Call your provider Call your provider for: Fever or Chills, Shortness of breath, Chest pain, Excessive diarrhea Patient Instructions Patient Instructions Take your antibiotic, Augmentin, twice a day until you run out.Continue using your spirometers as well. Take your normal medications (Paxil, Haldol, Phenobarbital) as usual. Please follow up with your usual [facility] provider or with the Residency clinic here at [facility] to ensure you don't run out of medications. Follow-up Provider: [facility] Residency Clinic Follow-up with PCP in: 2 weeks Provider: [facility] Follow-up in: 2 weeks (whichever is available, either residency or [facility]) Oscar Renteria MD 08/17/16 1615: Discharge Instructions Attending's Statement The patient was seen and examined together with Dr. Seay on 08/17/2016 and I agree with the history, exam and plan as outlined in the note above. . Vishal Seay DO Aug 17, 2016 10:34 Oscar Renteria MD Aug 17, 2016 16:15
--- NOTE | 2016-08-17 11:35 | NUR ---
Social work Note: Substance Use Assessment Current Circumstances: Alex Anderson is a 46 year old male admitted on 08/12/2016 for pneumonia and sepsis. Per MD order, SW met with pt at bedside to discuss substance use hx and offer resources du to ETOH dependence and hx of IV meth use. Pt agreeable to this meeting. Substance use hx: Pt reports drinking "as many beers as I have money to pay for" on a daily basis. Pt is unsure of the amount. Pt also explained he has a hx of cocain use, but since he moved here from [place], Meth is easier to come by so he has been using meth occasionally the last 2-3 months. Hx of sobriety and tx: Pt explained that he was sober for many months until 2-3 months ago when he moved to [place] from [place] to be closer to family. Pt relapsed due to stresses of moving and temptation in the community. Pt explained he has been to inpt and outpt tx before in [facility] and the last time he was in inpt tx was one year ago, Summer 2015. Family hx: Pt does report a family hx of substance use but did not go into further details. W/D symptoms: Pt reports flu like symptoms, shakes, and occasional seizures. Motivation for tx: Pt is motivated to go to inpt tx again. Pt accepted resources to [facility] with directions to schedule an intake apt to complete the assessment required by insurance for tx. Pt is also interested in their outpt tx program. Suicide Risk: Pt denies any thoughts of harming himself or others. Pt denies any suicidal ideation. Pt does report a dx of Schizophrenia but states when he is on his medications he is stable. Pt states that since he has moved to [place] it has been difficult for him to obtain his prescription psych medications and he has had to come to the ED to get them in the last month. Pt explained that it is important to him to stay on his medications as when he runs out, he relapses to "self medicate" and that is when he starts to feel unsafe and has experienced suicidal ideation in the past but has not attempted. Pt states that he has an appointment with [facility] for outpt mental health on August 25, wednesday but that they told him he will have to have another appointment and wait longer in order to get his psych medications managed. notified. Residency Clinic appointment scheduled for August 20 to establish primary care and in hopes of the provider being comfortable managing his psychiatric medications. Pt provided with Crisis line information and Crisis respite information for mental health stabilization or detox in the community if needed. Pt also provided with other Substance use and community resources. Discharge Plan: Pt is to be discharged home with family support with a residency clinic appointment for PCP on August 20 and a mental health appointment at [place] [facility] for August 25. Pt plan to follow up with [facility] to schedule an intake apt for an assessment for tx. Pt denies any other needs. Crisis Line and Crisis Respite information provided. No other discharge needs identified. NIVIA Moulton
--- NOTE | 2016-08-17 11:40 | NUR ---
Appointment on August 20, with at the Residency Clinic at 0730 with a 0715 check in time. 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
--- NOTE | 2016-08-17 12:11 | NUR ---
discharge of patient reviewed discharge instructions with patient. Patient verbalized understanding. pt discharged by walking out of hospital with prescriptions and instructions. IV and telemetry previously discontinued. Pt left hospital with brother to home self care.
--- NOTE | 2016-08-17 14:02 | NUR ---
Social Work Note: Discharge Data& Assessment: Per pt is medically ready to discharge home via POV. Alex Anderson is a 46 year old male admitted on 08/12/2016 for pneumonia and sepsis. Per pt is medically improved and ready to discharge home via POV. SW met with pt at bedside to confirm discharge plan and assess for any unmet needs. Pt has a a residency clinic appointment for PCP on August [address] Gordon, pt aware. Pt to follow up with [facility] for outpt tx and assessment. Pt provided with other substance use and community resources including information on crisis respite if needed. Pt brother transporting pt home this afternoon. Pt denies any other needs. No other discharge needs identified. Discharge Plan: Per pt is medically ready to be discharged home with family support with a residency clinic appointment for PCP on August 20. Community resources provided. Pt denies any other needs. No other discharge needs identified. NIVIA Moulton
--- NOTE | 2016-08-17 16:01 | PCM.DC.MED ---
Discharge Summary Date of Service Aug 17, 2016 Dates of Hospitalization Date of Hospital Admission Aug 12, 2016 at 15:33 Date of Discharge: Aug 17, 2016 Providers: Admitting Physician: Oscar Renteria MD Primary Care Physician: Nopcp Attending Physician: Oscar Renteria MD Diagnosis at Time of Discharge Diagnosis at Time of Discharge Left sided community acquired lobar pneumonia Alcohol use disorder Seizure disorder Tobacco use disorder. Procedures XRay, CTs & MRIs Chest XR 08/15 IMPRESSION: 1. Persistent but decreased left basilar consolidation and small pleural effusion. Dictated by: Pipo Young M.D. on 08/15/2016 at 9:11 Approved by: Pipo Young M.D. on 08/15/2016 at 9:13 Chest XR, 08/14 IMPRESSION: Increasing consolidation involving the left lung base likely related to pneumonia and there is a small parapneumonic effusion present. Dictated by: Jerod Vanegas RRA Interpreted: Zenia Molina MD on 08/14/2016 at 9:54 Transcribed by: JACOBO on 08/14/2016 at 9:56 Approved by: Zenia Molina M.D. on 08/14/2016 at 14:22 Chest XR, 08/13 IMPRESSION: Increased left hemithorax opacities most consistent with worsening pneumonia and new, superimposed effusion. Dictated by: Francesca Garcia M.D. on 08/13/2016 at 18:19 Approved by: Francesca Garcia M.D. on 08/13/2016 at 18:21 CT CHEST, ABDOMEN AND PELVIS WITH CONTRAST IMPRESSION: 1. Dense consolidation of the lingular base and diffuse tree in bud radiopacities throughout the mid and left lower lung consistent with multi- lobar pneumonia and diffuse endobronchial spread of infection. Debris or fluid is also present within the left main bronchus and distal branches in the mid and lower lung. 2. No thoracic or abdominal trauma after recent fall. Dictated by: Zenia Molina M.D. on 08/12/2016 at 15:34 X-RAY CHEST, TWO VIEWS IMPRESSION: Left lower lobe and lingular pneumonia. Recommend followup to resolution. Dictated by: Tramaine Luu M.D. on 08/12/2016 at 14:07 Cardiac Echo Impression Echo 08/14/16 Normal both left and right ventricle size and function. The ejection fraction is 60-65%. Borderline left atrial enlargement. Mild mitral regurgitation. Brief History Alex Anderson is a very pleasant but dishevelled 46-year-old gentleman with a past medical history significant for "recent heart attack" with 1 day hospital stay and no intervention, psychosis, seizure disorder, mental illness, IV drug use, alcoholism, tobaccoism, who presented to the [facility] emergency Department with right flank and mid-lower back pain following a traumatic fall onto a picnic table corner after playing football. He reports severe 10/10 pain in his ribs on his lower right side with coughing or deep breaths, and some minor pain in his left "lung area" for roughly 1 month. He reports not feeling well starting yesterday with fairly rapid onset fevers, diaphoresis, sub -sternal chest pain along with right flank and mid back pain. Of note patient has a reported history of IV drug use "anything he can get" with last IV drug injection 3 months ago and recent meth use yesterday, he states that he has been drinking alcohol of heavy quantities for 30+ years, when questioned an exact amount he said "as much as he can get his hands on" then stated bare minimum 12 pack a day, tobacco use of one pack per day since 13 years old. He is currently on disability for psychosis. Patient reports fevers, diaphoresis, substernal chest pain, shortness of breath , decreased appetite, right flank and mid lower back pain. He denies syncope, dizziness, change in vision, nausea, vomiting, chills, abdominal pain, diarrhea constipation, hemoptysis, hematuria. He was admitted to the hospital with a CIWA protocol in place and placed on azithromycin and rocephin. He had a couple desaturation events, some that required substantial oxygen support but no other interventions, and endured some brief antibiotic changes as a result (micafungin, unasyn, meropenem) and reverted to unasyn when his sputum culture grew strep pneumo with appropriate susceptibilities. He was on unasyn until discharge where he will continue Augmentin 875 mg PO BID for 4 more days. Hospital Course Mr. Alex Anderson is a very pleasant 46-year-old gentleman with a past medical history significant for IVDU, ETOH use disorder, and seizure disorder admitted to [facility] for L lobe pneumonia. He is receiving IV antibiotics and placed on CIWA protocol. Left sided community acquired lobar pneumonia, present on admission, acute, ongoing - Blood cultures negative x5 days - MRSA nasal swab and viral PCR both negative - Hep B/C, HIV, fungal antibodies negative - Legionella and strep urine antigen both negative - Fungitell and galactomannan negative - Sputum culture positive for strep pneumo - Pt had a couple desaturations at night on 08/14, falling into the 70's that improved with duoneb treatment - ID recommends: Azithromycin 500mg daily, last dose given 08/14 Unasyn 3000mg q 6 while hospitalized with transition to augmentin per ID for a total of 10 days -Pt utilizing acapella and incentive spirometer as tolerated Alcohol dependence, present on admission. Stable/in remission. - CIWA with IV diazepam - Pt did not require many interventions during his stay Seizure disorder, present on admission. Stable. - Continue home phenobarbital, haldol, cognentin - Follow up with [facility] or Residency clinic for continued care Tobacco dependence, present on admission. In remission. - Nicotine patch. - Counseled on cessation options, community resources Disposition: The patient discharged in improved and stable condition on 08/17. He will be following up with his [place] clinic or the Residency clinic if unable to reach [facility]. He expressed understanding of his medication regimen and under what conditions he is to return to the hospital. Exam Vital Signs (Last) Date Time Temp Pulse Resp B/P Pulse Ox O2 Delivery O2 Flow Rate FiO2 08/17/16 09:30 36.9 68 18 110/66 96 Room Air 08/17/16 05:21 3.00 Exam General: Disheveled male appearing older than stated age, in no acute respiratory distress sitting upright without oxygen HEENT: NCAT. PERRLA, EOMI with injected conjunctiva. Membranes moist and pink without cobblestoning. Neck: Supple with full range of motion. No JVD. No lymphadenopathy or thyromegaly. CV: RRR with no murmurs/rubs/gallops appreciated Pulm: Coarse breath sounds the lower lung schafer bilaterally. Still somewhat tender on his posterolateral right side. No accessory muscle use Abd: Soft, nontender, nondistended. Umbilical hernia, bowel tones present. No organomegaly. Extremities: Discoloration of fingertips with dirt under all fingernails bilaterally. No clubbing or cyanosis. Skin: Normal temperature, turgor. Discolored fingertips on both UE. Neurological: A&Ox3, CN2-12 intact. No tremor. Muscle strength normal in both UE /LE bilaterally. Psychiatric: Normal mood and affect Test 08/12/16 13:19 08/12/16 15:44 08/12/16 17:30 08/12/16 19:35 Prothrombin Time 10.2sec (8.1-12.5) Prothromb Time International Ratio 0.95ratio Magnesium Level 1.3mg/dL (1.6-2.6) Urine Color Yellow (YELLOW) Urine Appearance Clear (CLEAR,HAZY) Urine pH 6.5 (5.0-8.0) Urine Specific Slater <1.005 (1.003-1.035) Urine Protein Negativemg/dL (NEG,TRACE) Urine Glucose (UA) Negativemg/dL (NEGATIVE) Urine Ketones Negativemg/dL (NEGATIVE) Urine Occult Blood Negative (NEGATIVE) Urine Nitrite Negative (NEGATIVE) Urine Bilirubin Negative (NEGATIVE) Urine Urobilinogen Normalmg/dL (NORMAL) Urine Leukocyte Esterase Negative (NEGATIVE) Urine RBC 0-2/hpf (0-2) Urine WBC 0-5/hpf (0-5) Urine Epithelial Cells Few/hpf (NONE-MOD) Urine Crystals None seen (NONE SEEN) Urine Bacteria Few/hpf (NONE-FEW) Urine Hyaline Casts None/lpf (NONE) Urine Granular Casts None seen (NONE SEEN) Urine Waxy Casts None seen (NONE SEEN) Urine Red Blood Cell Casts None seen (NONE SEEN) Urine White Blood Cell Casts None seen (NONE SEEN) Urine Mucus None seen (None Seen) Urine Trichomonas None seen (NONE SEEN) Urine Yeast None (NONE SEEN) Urinalysis Comment None Urine Culture Reflexed Not indicated Urine Legionella pneumophilia Ag Negative (Negative) Fungal Antibodies <31pg/mL (<80) Hepatitis B Core Total Antibody Negative (Negative) Hepatitis C Antibody <0.1s/co ratio (0.0-0.9) HIV (1&2) Ag and Ab, 4th Generation Non reactive (Non Reactive) Aspergillus galactomannan Antigen 0.04Index (0.00-0.49) Troponin T < 0.010ug/L (0.0-0.011) Test 08/12/16 20:40 08/13/16 09:45 08/13/16 22:55 08/15/16 02:45 Lactic Acid Level 1.0mmol/L (0.4-2.0) Hold Blue Top Tube Received (Received) Procalcitonin 1.05ng/mL (0.00-0.08) Test 08/17/16 07:25 White Blood Count 12.8th/mm3 (3.8-10.1) Red Blood Count 4.40mil/mm3 (4.40-5.80) Hemoglobin 14.4g/dL (13.8-17.2) Hematocrit 41.3% (41.0-50.0) Mean Corpuscular Volume 93.9fL (81-100) Mean Corpuscular Hemoglobin 32.7pg (27.0-35.0) Mean Corpuscular Hemoglobin Concent 34.9% (32.0-37.0) Red Cell Distribution Width 12.8% (12.3-15.4) Platelet Count 283bil/L (150-400) Neutrophils (%) (Auto) 70.1% (40-74) Lymphocytes (%) (Auto) 17.5% (14-46) Monocytes (%) (Auto) 8.5% (4-12) Eosinophils (%) (Auto) 2.5% (0-5) Basophils (%) (Auto) 0.5% (0-3) Sodium Level 138mEq/L (134-144) Potassium Level 4.6mEq/L (3.5-5.2) Chloride Level 102mEq/L (97-108) Carbon Dioxide Level 22mmol/L (18-29) Blood Urea Nitrogen 15mg/dL (6-24) Creatinine 0.66mg/dL (0.76-1.27) Estimat Glomerular Filtration Rate 139mL/min (>59) Glucose Level 102mg/dL (60-99) Calcium Level 9.3mg/dL (8.5-10.1) Total Bilirubin 0.2mg/dL (0.0-1.2) Aspartate Amino Transf (AST/SGOT) 18U/L (0-50) Alanine Aminotransferase (ALT/SGPT) 13U/L (0-44) Alkaline Phosphatase 63U/L (25-150) Total Protein 6.2g/dL (6.4-8.4) Albumin 3.6g/dL (3.4-5.0) Microbiology Results MRSA screen negative Respiratory PCR panel negative Blood cultures negative x2d Sputum culture has insufficient growth thus far Discharge Medications Discharge Medications Amoxicillin/Clav K 875-125 mg (Augmentin 875-125 mg) 1 Each Tablet 1 TABLET PO BID Prescribed by: AUGUSTA MORENO DO Benztropine Mesylate (Benztropine Mesylate) 0.5 Mg Tablet 0.5-1 MG PO HS ( Reported) Benztropine Mesylate (Benztropine Mesylate) 0.5 Mg Tablet 1 MG PO HS take 0.5-1mg with haldol at night. Prescribed by: AUGUSTA MORENO DO Haloperidol (Haloperidol) 5 Mg Tablet 5 MG PO QPM Prescribed by: PERCY GLYNN Haloperidol (Haloperidol) 5 Mg Tablet 5 MG PO QPM Prescribed by: AUGUSTA MORENO DO Paroxetine (Paxil) 20 Mg Tablet 20 MG PO HS Prescribed by: PERCY GLYNN Phenobarbital (Phenobarbital) 64.8 Mg Tablet 64.8 MG PO BID (Reported) Phenobarbital (Phenobarbital) 64.8 Mg Tablet 64.8 MG PO BID Prescribed by: AUGUSTA MORENO DO Additional med instructions In addition to your normal medications, take your antibiotic (Augmentin 875mg BID) for 4 more days. Followup Plan Discharge Diet: No restrictions Discharge Activity: No restrictions Patient Instructions Take your antibiotic, Augmentin, twice a day until you run out.Continue using your spirometers as well. Take your normal medications (Paxil, Haldol, Phenobarbital) as usual. Please follow up with your usual [facility] provider or with the Residency clinic here at [facility] to ensure you don't run out of medications. Follow-up Provider: [facility] Follow-up with PCP in: 2 weeks Provider: [facility] Follow-up in: 2 weeks (whichever is available, either residency or [facility]) Time spent Greater than 30 minutes was spent in preparation of discharge with greater than 50% of that time dedicated to patient counseling and coordination of care. . Attending Statement The patient was seen and examined together with Dr. Seay on 08/17/2016 and I agree with the history, exam and plan as outlined in the note above. . copies to: [facility] Vishal Seay DO Aug 17, 2016 16:01 Oscar Renteria MD Aug 17, 2016 16:21
== END 2016-08-17 12:00 | disposition home or self-care (01) | DRG 871 ==
LOC: SED 13:07 → PCC 15:33
PROVIDERS: ADMIT Internal Medicine; ATTEND Internal Medicine
PROC: 5A0945Z Assistance with Respiratory Ventilation, 24-96 Consecutive Hours (ICD-10-PCS; principal; 2016-08-12)
PROC: 4A033R1 Measurement of Arterial Saturation, Peripheral, Percutaneous Approach (ICD-10-PCS; 2016-08-12)
DX: A41.9 Sepsis, unspecified organism (principal); J96.01 Acute respiratory failure with hypoxia; J13 Pneumonia due to Streptococcus pneumoniae; Y93.79 Activity, other specified sports and athletics; Y92.9 Unspecified place or not applicable; Y99.8 Other external cause status; F17.210 Nicotine dependence, cigarettes, uncomplicated; R65.20 Severe sepsis without septic shock; G40.909 Epilepsy, unspecified, not intractable, without status epilepticus; F20.9 Schizophrenia, unspecified; F19.10 Other psychoactive substance abuse, uncomplicated; E83.42 Hypomagnesemia; R07.81 Pleurodynia; F10.20 Alcohol dependence, uncomplicated

== ENCOUNTER 2016-08-28 22:03 | Emergency (ER) | payer OTHER ==
[~2016-08-28] VITALS: Ht 180.3 cm; Wt 68.2 kg
[~2016-08-28 22:03] MED LIST changes: +AMOX-366 PO; +BENZ0.5T3 PO
[2016-08-28 22:57] VITALS: BP 106/70; PULSE 98; RESP 18; O2SAT 97
--- NOTE | 2016-08-28 23:45 | ED.REPORT ---
HPI-Psychiatric Illness Date of Service Aug 28, 2016 ED Provider: Faheem Odonnell MD The pt is a 46 y/o male w/ a hx of schizophrenia, epilepsy, and substance use disorder presenting to the ED due to an attempted suicide. He reports trying to overdose on heroine before the psychosis "got to him" causing him to scratch "the spiders" crawling on his legs. He has attempted suicide in the past. He reports using meth, heroine, and drinking a 12 pack of beer a day. The pt was hospitalized roughly 3 weeks ago for pneumonia. Nursing Notes Stated Complaint: SUICIDAL IDEATION Chief Complaint: Attempted suicide Nursing Notes Reviewed: Yes Allergies: Coded Allergies: No Known Allergies (Unverified , 08/12/16) Scheduled Amoxicillin/Clav K 875-125 mg (Augmentin 875-125 mg) 1 Each Tablet 1 TABLET PO BID Benztropine Mesylate (Benztropine Mesylate) 0.5 Mg Tablet 0.5-1 MG PO HS Benztropine Mesylate (Benztropine Mesylate) 0.5 Mg Tablet 1 MG PO HS take 0.5-1mg with haldol at night. Haloperidol (Haloperidol) 5 Mg Tablet 5 MG PO QPM Haloperidol (Haloperidol) 5 Mg Tablet 5 MG PO QPM Paroxetine (Paxil) 20 Mg Tablet 20 MG PO HS Phenobarbital (Phenobarbital) 64.8 Mg Tablet 64.8 MG PO BID Phenobarbital (Phenobarbital) 64.8 Mg Tablet 64.8 MG PO BID General Time Seen by MD: 23:45 Chief Complaint Suicidal attempt Hx Obtained From: Patient Arrived By: Walk-in Onset Occurred: Just prior to arrival Recent Healthcare: Recent doctor visit, Recent hospitalization Similar Sx Previous: Yes Risk-Psychiatric Illness Suicide Risk Stratification Suicide Risk Factors - Adult: : Alcohol use: Previous attempt RF Statements: Risk factors reviewed Past Medical History Past Medical History Schizophrenia Epilepsy Substance use disorder Reports: Mental illness Family History Noncontributory Smoking History Current Every Day Smoker Social History Alcohol Use: >5 per day Drug Use: Meth, THC Other Social History: From out of town Ambulatory Status Independent Review of Systems Psychiatric: Reports: Suicidal ideation (w/ attempt ) Complete sys rev & neg: except as marked. Physical Exam Initial Vital Signs Vital Signs (First) Date Time Temp Pulse Resp B/P Pulse Ox O2 Delivery O2 Flow Rate FiO2 08/28/16 22:57 36.7 98 18 106/70 97 Room Air Initial VS: Reviewed Head / Eyes: Atraumatic, Normocephalic, PERRL ENT: Mucous membranes moist, Conjunctiva normal, No scleral icterus Neck: Supple, Non-tender, Full range of motion Respiratory: Breath sounds normal, Clear to auscultation, No respiratory distress Cardiovascular: Regular rate & rhythm, Heart sounds normal, Intact distal pulses Abdomen / GI: Soft, Non-tender, No guarding, No rebound, No distention Extremities: Vascular intact, Neuro intact, No swelling, No tenderness Skin: Warm, Dry, No cyanosis General/Constitutional: Awake, Alert Neurologic: Oriented X3, Speech NL Psychiatric: Affect NL, Mood NL Interpretation & Diagnostics Lab Results Interpretation Result Diagram: 08/29/16 0111 08/29/16 0111 Test 08/29/16 01:11 White Blood Count 7.3th/mm3 (3.8-10.1) Red Blood Count 4.50mil/mm3 (4.40-5.80) Hemoglobin 14.9g/dL (13.8-17.2) Hematocrit 43.1% (41.0-50.0) Mean Corpuscular Volume 95.8fL (81-100) Mean Corpuscular Hemoglobin 33.1pg (27.0-35.0) Mean Corpuscular Hemoglobin Concent 34.6% (32.0-37.0) Red Cell Distribution Width 13.8% (12.3-15.4) Platelet Count 406bil/L (150-400) Sodium Level 141mEq/L (134-144) Potassium Level 4.1mEq/L (3.5-5.2) Chloride Level 99mEq/L (97-108) Carbon Dioxide Level 23mmol/L (18-29) Blood Urea Nitrogen 11mg/dL (6-24) Creatinine 0.75mg/dL (0.76-1.27) Estimat Glomerular Filtration Rate 120mL/min (>59) Glucose Level 85mg/dL (60-99) Calcium Level 9.0mg/dL (8.5-10.1) Total Bilirubin 0.2mg/dL (0.0-1.2) Aspartate Amino Transf (AST/SGOT) 13U/L (0-50) Alanine Aminotransferase (ALT/SGPT) 11U/L (0-44) Alkaline Phosphatase 70U/L (25-150) Total Protein 6.9g/dL (6.4-8.4) Albumin 4.2g/dL (3.4-5.0) Hold Pandya Top Tube Received (Received) Salicylates Level < 3.0ug/mL (30-250) Acetaminophen Level < 15.0ug/mL Rx (10-25) Alcohols 27mg/dL (0-10) Re-Eval/Medical Decision Med Decision/Clinical Course Baseline schizophrenic man with reported seizure disorder, chronic alcohol and polysubstance abuse, presents with suicidal ideation. Attempted overdose with heroin but did not succeed. He is here voluntarily for evaluation of suicidal ideation. Awaits MAIL ROOM consult this morning. Source of Hx: Old records Counseled Regarding: Diagnosis, Lab results, Need for follow-up, When/why to return to ED Discharge & Departure Impression: Primary Impression: Schizophrenia Additional Impressions: Depression Substance abuse Suicidal ideation Seizure disorder Discharge Condition All VS Reviewed: Yes Referrals: [facility] Care Transferred to: Dr. Borjas Care Transferred at: 06:00 Umberto Attestation Portions of this note were transcribed by Tip Corado. I, Dr. Odonnell personally performed the history, physical exam and medical decision-making; I reviewed and confirmed the accuracy of the information in the transcribed note. Signed by : Umberto Hayes, 08/28/16 and 0104. copies to: [facility] Res[facility] Faheem Odonnell MD Aug 28, 2016 23:45 Tip Corado Aug 29, 2016 01:00
[2016-08-29] MEDS ORDERED: LORazepam 2 mg Tablet PO ONE
[2016-08-29 01:29] LABS: Mean Corpuscular Hemoglobin 33.1 pg (27.0-35.0); Mean Corpuscular Volume 95.8 fL (81-100)
[2016-08-29 06:41] VITALS: BP 103/56; PULSE 72; RESP 16; O2SAT 99
[2016-08-29 10:42] VITALS: BP 122/72; PULSE 76; RESP 16; O2SAT 98
== END 2016-08-29 10:43 | disposition home or self-care (01) ==
LOC: SED 22:03
DX: R45.851 Suicidal ideations (principal); F20.9 Schizophrenia, unspecified; F32.9 Major depressive disorder, single episode, unspecified; F19.10 Other psychoactive substance abuse, uncomplicated; G40.909 Epilepsy, unspecified, not intractable, without status epilepticus; F17.200 Nicotine dependence, unspecified, uncomplicated; Z91.5 Personal history of self-harm
CPT/HCPCS: 36415; 80053; 81002; 85027; 99284; G0480

== ENCOUNTER 2016-09-23 11:00 | Emergency (ER) | payer OTHER ==
[~2016-09-23] VITALS: Ht 27.9 cm; Wt 65.9 kg
[2016-09-23 11:01] VITALS: BP 115/79; PULSE 82; RESP 17; O2SAT 98
[2016-09-23 11:07] VITALS: BP 115/79; PULSE 82; RESP 17; O2SAT 98
--- NOTE | 2016-09-23 11:30 | ED.REPORT ---
HPI-General Illness Date of Service Sep 23, 2016 ED Provider: Omar Whyte MD Pt is a 46 y/o male w/ a hx of schizophrenia, alcohol abuse, former IVDA, current meth use, presenting to the ED with multiple medical complaints onset 1 week ago. He c/o associated lightheadedness, spinning-sensation dizziness, fatigue, near-syncopal episodes, chills, nausea, vomiting, OBANDO, anorexia, constant chest pressure and shortness of breath for 2 weeks. Pt denies fever, abdominal pain, bloody stools, hematemesis. He used meth yesterday. He says he hasn't used IV drugs in a "quite a while". The patient was admitted August 12- August 17 for pneumonia and completed the full course of antibiotics. He then presented to the ED 2 weeks later after an attempted suicide. He is requesting a refill for his psych meds. Nursing Notes Stated Complaint: DIZZY/ NAUSEA Chief Complaint: General Complaint Nursing Notes Reviewed: Yes Allergies: Coded Allergies: No Known Allergies (Unverified , 08/12/16) Scheduled Amoxicillin/Clav K 875-125 mg (Augmentin 875-125 mg) 1 Each Tablet 1 TABLET PO BID Benztropine Mesylate (Benztropine Mesylate) 0.5 Mg Tablet 0.5-1 MG PO HS Benztropine Mesylate (Benztropine Mesylate) 0.5 Mg Tablet 1 MG PO HS take 0.5-1mg with haldol at night. Haloperidol (Haloperidol) 5 Mg Tablet 5 MG PO QPM Haloperidol (Haloperidol) 5 Mg Tablet 5 MG PO QPM Meclizine (Bonine) 25 Mg Tab.chew 25 MG PO TID Paroxetine (Paxil) 20 Mg Tablet 20 MG PO HS Phenobarbital (Phenobarbital) 64.8 Mg Tablet 64.8 MG PO BID Phenobarbital (Phenobarbital) 64.8 Mg Tablet 64.8 MG PO BID General Time Seen by MD: 11:25 Chief Complaint Multip medical complaints Hx Obtained From: Patient Arrived By: Walk-in Sudden in Onset?: No Onset Occurred: 1 week ago Symptom Duration: Since onset Location: : Chest Quality: Pressure Severity: Current: Mild Severity: Maximum: Mild Recent Healthcare: Recent doctor visit Similar Sx Previous: No Past Medical History Past Medical History Hx pneumonia Schizophrenia Suicide attempt Epilepsy Meth use History of IVDA Alcohol abuse Past Surgical History None reported Family History Noncontributory Smoking History Current Every Day Smoker Social History Alcohol Use: >5 per day Drug Use: IV drugs (history), Meth, THC, Other Other Social History: From out of town Ambulatory Status Independent Review of Systems Full Review of Systems Constitutional: Reports: Chills, Fatigue, Denies: Fever Respiratory: Reports: Non-productive cough, Shortness of breath Cardiovascular: Reports: Chest pain GI: Reports: Anorexia, Nausea, Vomiting, Denies: Abdominal pain, Bloody/tarry stool, Hematemesis Neurologic: Reports: Dizziness, Headache, Lightheaded, Spinning sensation, Syncope (near), Denies: Focal weakness, Numbness Complete sys rev & neg: except as marked. Physical Exam Vital Signs Vital Signs Date Time Temp Pulse Resp B/P Pulse Ox O2 Delivery O2 Flow Rate FiO2 09/23/16 12:47 37 72 16 115/67 98 Room Air 09/23/16 11:07 36.4 82 17 115/79 98 Room Air 09/23/16 11:01 36.4 82 17 115/79 98 Room Air Initial VS: Reviewed, Vital signs normal ENT: Mucous membranes moist, Conjunctiva normal, No scleral icterus Neck: Supple, Full range of motion Respiratory: Breath sounds normal, Clear to auscultation, No respiratory distress Cardiovascular: Regular rate & rhythm, Heart sounds normal, Intact distal pulses Abdomen / GI: Soft, Non-tender Extremities: Vascular intact, Neuro intact, No swelling Skin: Warm, Dry, No cyanosis Neurologic: Alert, Oriented, Nonfocal Psychiatric: Mood/affect normal, Behavior normal, Normal thought content General/Constitutional: Awake, Alert, No acute distress, Cooperative, Not toxic appearing Head / Eyes: Atraumatic, Normocephalic, PERRL [place] hallpike negative but worsened his dizziness Interpretation & Diagnostics Lab Results Interpretation Result Diagram: 09/23/16 1120 09/23/16 1120 Test 09/23/16 11:20 White Blood Count 7.9th/mm3 (3.8-10.1) Red Blood Count 4.62mil/mm3 (4.40-5.80) Hemoglobin 15.4g/dL (13.8-17.2) Hematocrit 43.3% (41.0-50.0) Mean Corpuscular Volume 93.7fL (81-100) Mean Corpuscular Hemoglobin 33.3pg (27.0-35.0) Mean Corpuscular Hemoglobin Concent 35.6% (32.0-37.0) Red Cell Distribution Width 13.0% (12.3-15.4) Platelet Count 269bil/L (150-400) Neutrophils (%) (Auto) 60.2% (40-74) Lymphocytes (%) (Auto) 31.3% (14-46) Monocytes (%) (Auto) 5.6% (4-12) Eosinophils (%) (Auto) 2.3% (0-5) Basophils (%) (Auto) 0.3% (0-3) Sodium Level 142mEq/L (134-144) Potassium Level 4.3mEq/L (3.5-5.2) Chloride Level 101mEq/L (97-108) Carbon Dioxide Level 25mmol/L (18-29) Blood Urea Nitrogen 11mg/dL (6-24) Creatinine 0.76mg/dL (0.76-1.27) Estimat Glomerular Filtration Rate 118mL/min (>59) Glucose Level 127mg/dL (60-99) Calcium Level 9.5mg/dL (8.5-10.1) Magnesium Level 1.7mg/dL (1.6-2.6) Total Bilirubin 0.2mg/dL (0.0-1.2) Aspartate Amino Transf (AST/SGOT) 17U/L (0-50) Alanine Aminotransferase (ALT/SGPT) 10U/L (0-44) Alkaline Phosphatase 63U/L (25-150) Troponin T < 0.010ug/L (0.0-0.011) Total Protein 6.8g/dL (6.4-8.4) Albumin 4.2g/dL (3.4-5.0) Hold Pandya Top Tube Received (Received) ECG Interpretation ECG Interpretation: Sinus rhythm rate 75 T wave inversions in V1, V2 Unchanged from prior Time: 11:32 Interpreted by: ED physician Normal ECG Interpretation: No acute ischemic changes X-Ray Chest Interpretation Chest Xray Interpretation: IMPRESSION: No radiographic evidence of acute cardiopulmonary pathology. Dictated by: Samuel Terrell M.D. on 09/23/2016 at 11:32 Approved by: Samuel Terrell M.D. on 09/23/2016 at 11:34 View: Portable, 1 view Interpretation / Wet Read by: Interpret - Radiologist Re-Eval/Medical Decision Med Decision/Clinical Course 46-year-old male history of schizophrenia hospitalization recently for pneumonia presenting with dizziness for several days. No signs are stable. Orthostatics are normal. His [place]Hallpike produces no nystagmus but does produce worsening of dizziness. Labs are unremarkable chest x-ray is clear. Patient is also requesting a refill on his psych medications as he does not have an appointment with his primary doctor for 3 weeks. I refilled his psychiatric medications based on the recent discharge medications. Suspect his dizziness is likely benign positional vertigo. There are no focal neuro deficits to suggest CVA. Discussed with patient and will discharge with meclizine with return precautions. Follow-up primary doctor. Time of Eval: 12:28 Re-Evaluation/Progress Note: Pt rechecked. Informed pt of plan for discharge. Pt understands and agrees with plan for discharge. F/U instructions and RTER warnings given. All questions addressed. Counseled Regarding: Diagnosis, Lab results, Need for follow-up, When/why to return to ED Discharge & Departure Primary Impression: Dizziness Additional Impression: Schizophrenia Schizophrenia type: unspecified Qualified Code: F20.9 - Schizophrenia, unspecified Disposition: Home Discharge Condition All VS Reviewed: Yes Condition: Stable Patient Instructions: Benign Paroxysmal Positional Vertigo (ED), Dizziness (ED) Additional Instructions: The cause of your dizziness is unclear, but may be related to benign positional vertigo. Try Meclizine as directed for dizziness. This may or may not be effective. Your psychiatric medications have been refilled for 18 days. Follow-up with your primary care doctor in 2-3 days for a recheck. Return to the emergency department if you experience high fever, severe pain, or for other concerning symptoms. Referrals: Pending sale to [facility] Scribe Attestation Portions of this note were transcribed by Sina Murdock. I, Dr. Whyte personally performed the history, physical exam and medical decision-making; I reviewed and confirmed the accuracy of the information in the transcribed note. copies to: Pending sale to [facility] Omar Whyte MD Sep 23, 2016 11:30 SINA MURDOCK Sep 23, 2016 11:32
--- NOTE | 2016-09-23 11:36 | DRSVH ---
PROCEDURE: X-RAY CHEST ONE VIEW, PORTABLE ([id number]) INDICATIONS: dizzy TECHNIQUE: One view of the chest was acquired. COMPARISON: [facility], CR, XR CHEST 1VW (PORTABLE), 08/13/2016, 17:25. FINDINGS: Surgical changes and devices: None. Lungs and pleura: No pleural effusions or pneumothorax. Lungs are clear. Mediastinum: Mediastinal contours appear normal. Heart size is normal. Bones and chest wall: No suspicious bony lesions. Overlying soft tissues appear unremarkable. IMPRESSION: No radiographic evidence of acute cardiopulmonary pathology. Dictated by: Samuel Terrell M.D. on 09/23/2016 at 11:32 Approved by: Samuel Terrell M.D. on 09/23/2016 at 11:34
[2016-09-23] MEDS ORDERED: 0.9% Sodium Chloride 1,000 ML IV ONE (11:40)
[2016-09-23 11:44] LABS: BASOPHILS % (AUTO) 0.3 % (0-3); EOSINOPHILS % (AUTO) 2.3 % (0-5); MONOCYTES % (AUTO) 5.6 % (4-12); Mean Corpuscular Hemoglobin 33.3 pg (27.0-35.0); Mean Corpuscular Volume 93.7 fL (81-100); NEUTROPHILS % (AUTO) 60.2 % (40-74); Platelet Count 269 bil/L (150-400)
[2016-09-23 12:16] LABS: Magnesium 1.7 mg/dL (1.6-2.6)
[2016-09-23 12:19] LABS: TROPONIN T < 0.010 ug/L (0.0-0.011)
[2016-09-23] MEDS ORDERED: MECL-114 PO (12:38)
[2016-09-23 12:47] VITALS: BP 115/67; PULSE 72; RESP 16; O2SAT 98
== END 2016-09-23 12:48 | disposition home or self-care (01) ==
LOC: SED 11:00
DX: R42 Dizziness and giddiness (principal); F20.9 Schizophrenia, unspecified; F17.200 Nicotine dependence, unspecified, uncomplicated
CPT/HCPCS: 36415; 71010; 80053; 83735; 84484; 85025; 93005; 96360; 99285; J7030

== ENCOUNTER 2016-10-06 14:49 | Emergency (ER) | payer OTHER ==
[~2016-10-06] VITALS: Ht 180.3 cm; Wt 63.6 kg
[~2016-10-06 14:49] MED LIST changes: +MECL-114 PO
[2016-10-06 14:54] VITALS: BP 117/73; PULSE 99; RESP 15; O2SAT 100
--- NOTE | 2016-10-06 17:28 | DRSVH ---
PROCEDURE: X-RAY LEFT KNEE, THREE VIEWS ([id number]) INDICATIONS: knee pain TECHNIQUE: 3 views of the knee were acquired. COMPARISON: None. FINDINGS: Bones: No fractures or dislocations. No suspicious bony lesions. Soft tissues: There is a joint effusion. No suspicious soft tissue calcifications. IMPRESSION: No bony abnormality is seen. A knee joint effusion is present. Dictated by: Kumar Alexandra M.D. on 10/06/2016 at 17:26 Approved by: Kumar Alexandra M.D. on 10/06/2016 at 17:27
--- NOTE | 2016-10-06 17:43 | ED.REPORT ---
HPI-Extremity Problem Lower Date of Service Oct 06, 2016 ED Provider: Aroldo Poon PA-C Alex is a 46-year-old male with a history of substance abuse presented with a chief complaint of left knee pain. Patient reports a one-month history of left knee pain and swelling. He can recall no specific trauma but reports several injuries in the remote past. Denies instability, catching, popping. He is able to bear weight on the knee. He reports that he has been doing a lot of walking for the last 3 months. Denies recent IV drug use Nursing Notes Stated Complaint: LEFT KNEE SWOLLEN AND PAIN Chief Complaint: Extremity Trauma Nursing Notes Reviewed: Yes Allergies: Coded Allergies: No Known Allergies (Unverified , 10/06/16) Scheduled Amoxicillin/Clav K 875-125 mg (Augmentin 875-125 mg) 1 Each Tablet 1 TABLET PO BID Benztropine Mesylate (Benztropine Mesylate) 0.5 Mg Tablet 0.5-1 MG PO HS Benztropine Mesylate (Benztropine Mesylate) 0.5 Mg Tablet 1 MG PO HS take 0.5-1mg with haldol at night. Haloperidol (Haloperidol) 5 Mg Tablet 5 MG PO QPM Haloperidol (Haloperidol) 5 Mg Tablet 5 MG PO QPM Meclizine (Bonine) 25 Mg Tab.chew 25 MG PO TID Paroxetine (Paxil) 20 Mg Tablet 20 MG PO HS Phenobarbital (Phenobarbital) 64.8 Mg Tablet 64.8 MG PO BID Phenobarbital (Phenobarbital) 64.8 Mg Tablet 64.8 MG PO BID General Time Seen by MD: 16:49 Chief Complaint Knee injury left Past Medical History Past Medical History Hx pneumonia Schizophrenia Suicide attempt Epilepsy Meth use History of IVDA Alcohol abuse Past Surgical History None reported Family History Noncontributory Smoking History Current Every Day Smoker Social History Alcohol Use: >5 per day Drug Use: IV drugs, Meth, THC, Other Other Social History: From out of town Ambulatory Status Independent Review of Systems Review of Systems Note: Negative unless stated otherwise in history of present illness Physical Exam General: Well appearing, well developed, well nourished, no acute distress. Left hip: Nontender, full range of motion. Left knee: Mild effusion noted. No redness or heat. Minimal tenderness over medial joint line. Negative tenderness over patella, lateral joint line, popliteal fossa, tibial tuberosity. Excellent range of motion. No laxity noted with varus stress, valgus stress, anterior or posterior drawer test. Left foot/ankle: Normal to inspection, nontender, full range of motion. DP and PT pulses 2+. Head: Atraumatic, normocephalic. Eyes: Injected conjunctiva bilaterally. No discharge. Vision grossly intact. ENT: Voice clear, hearing grossly intact. Respiratory: No respiratory distress, no increased work of breathing. Speaks in complete sentences. Skin: Warm and dry. Neurological: Grossly nonfocal. Psychological: alert and oriented. Speech appropriate, linear and logical. Behavior appropriate. Initial Vital Signs Vital Signs (First) Date Time Temp Pulse Resp B/P Pulse Ox O2 Delivery O2 Flow Rate FiO2 10/06/16 14:54 36.2 99 15 117/73 100 Normal Interpretation & Diagnostics X-Ray Interpretation Xray Interpretation: PROCEDURE: X-RAY LEFT KNEE, THREE VIEWS ([id number]) INDICATIONS: knee pain IMPRESSION: No bony abnormality is seen. A knee joint effusion is present. Re-Eval/Medical Decision Med Decision/Clinical Course 46-year-old male patient with a chief complaint of one month left knee pain and swelling. He can recall no specific injury, denies clicking, catching, popping. Physical examination is benign showing only a mild effusion. No redness or heat, good range of motion. Negative laxity. Good pulses distal. X -rays negative. Surgical dislocation, fracture, septic joint, gout, severe meniscal tear or ligament injury. Patient responds well to ketorolac and acetaminophen. Provided Fernando wrap. Advised rest and ice and elevation. Provided orthopedic follow-up should symptoms not resolve in one week. Provided emergency return precautions. Patient verbalizes understanding of and consent to the plan Discharge & Departure Impression: Primary Impression: Effusion, left knee Disposition: Home Discharge Condition All VS Reviewed: Yes Condition: Stable Additional Instructions: Evaluation in the emergency department for left knee pain includes interview, physical examination x-ray which revealed U have some fluid in your knee joint. This typically indicates a soft tissue injury. There is no indication of fracture, dislocation or infection. I believe your safe to be discharged to home. We will treat this by wrapping the knee. Keep the knee elevated as much as possible and ice 2-3 times a day to reduce swelling. Light activity as tolerated. The pain is best treated with 500 mg of naproxen (Aleve) every 12 hours, or 1000 mg of acetaminophen (Tylenol) every 6 hours. These drugs can be taken at the same time for more severe pain. If this is not significantly improved in about a week, follow up with an orthopedic surgeon. I will provide you with a referral. Return to emergency department for any new or worsening symptoms including increasing redness, swelling, pain or the development of a cold or numb foot. Referrals: Faheem Hernandez MD EDSupervising Provider for APC: David Chisholm DO copies to: Faheem Hernandez MD, Seth PA-C Oct 06, 2016 17:43
== END 2016-10-06 19:55 | disposition home or self-care (01) ==
LOC: SED 14:49
DX: M25.462 Effusion, left knee (principal); G40.909 Epilepsy, unspecified, not intractable, without status epilepticus; F20.9 Schizophrenia, unspecified; F17.200 Nicotine dependence, unspecified, uncomplicated; Z87.01 Personal history of pneumonia (recurrent)
CPT/HCPCS: 73562; 96372; 99283; J1885

== ENCOUNTER 2016-10-21 15:53 | Inpatient (IN) | payer OTHER, MEDICAID ==
[~2016-10-21] VITALS: Ht 177.8 cm; Wt 65.6 kg
[2016-10-21 16:08] VITALS: BP 115/28; PULSE 113; RESP 22; O2SAT 96
[2016-10-21 17:46] VITALS: BP 101/52; PULSE 84; RESP 20; O2SAT 96
--- NOTE | 2016-10-21 18:04 | ED.REPORT ---
HPI-General Illness Date of Service Oct 21, 2016 ED Provider: Dr. Odonnell Pt is a 46 y/o male w/ a hx of schizophrenia, suicide attempt, polysubstance abuse, epilepsy, presenting to the ED c/o alcohol withdrawal. The patient has been drinking about a case of beer each day minimum and his last drink was 10: 00 this morning. He has required hospitalizations for withdrawal before and has had alcoholic seizures before. There are no significant withdrawal symptoms at this time, although he was rated at [place] of 14 on initial arrival, and received several doses of benzodiazepines prior to my evaluation.. He is also suicidal and states that if he "can't get help here he will jump off a bridge". The last time he was in detox was 1 year ago and he had a 45 day sober period afterwards. He denies any history of pancreatitis, liver cirrhosis. He uses meth , heroin, and marijuana as well with these last being used 2 days ago. Nursing Notes Stated Complaint: DETOX, SUICIDAL/ SENT FROM [facility] Chief Complaint: Substance Abuse Nursing Notes Reviewed: Yes Allergies: Coded Allergies: No Known Allergies (Unverified , 10/06/16) Scheduled Benztropine Mesylate (Benztropine Mesylate) 1 Mg Tablet 1 MG PO HS Haloperidol (Haloperidol) 5 Mg Tablet 5 MG PO QPM Meclizine (Bonine) 25 Mg Tab.chew 25 MG PO TID Paroxetine (Paroxetine) 20 Mg Tablet 20 MG PO HS Phenobarbital (Phenobarbital) 64.8 Mg Tablet 64.8 MG PO BID General Time Seen by MD: 18:03 Chief Complaint Other Hx Obtained From: Patient Arrived By: Walk-in Sudden in Onset?: No Onset Occurred: 9 - 12 hours ago Symptom Duration: Since onset Severity: Current: No pain currently Severity: Maximum: No pain Recent Healthcare: Previous diagnosis Similar Sx Previous: Yes Past Medical History Past Medical History Hx pneumonia Schizophrenia Suicide attempt Hx alcoholic seizures Epilepsy Meth use History of IVDA Alcohol abuse Past Surgical History None reported Family History Noncontributory Smoking History Current Every Day Smoker Social History Alcohol Use: >5 per day Drug Use: IV drugs, Meth, THC, Other Other Social History: From out of town Ambulatory Status Independent Review of Systems Full Review of Systems Constitutional: Denies: Chills, Fever, Lethargy Cardiovascular: Denies: Palpitations GI: Denies: Abdominal pain, Vomiting Skin: Denies Diaphoresis Neurologic: Denies: Change LOC, Confusion, Seizure Psychiatric: Reports: Suicidal ideation, Denies: Delusional Complete sys rev & neg: except as marked. Physical Exam Vital Signs Vital Signs Date Time Temp Pulse Resp B/P Pulse Ox O2 Delivery O2 Flow Rate FiO2 10/21/16 19:15 96 20 128/73 95 Room Air 10/21/16 17:46 84 20 101/52 96 Room Air 10/21/16 16:08 36.9 113 22 115/28 96 Room Air Initial VS: Reviewed Head / Eyes: Atraumatic, Normocephalic ENT: Mucous membranes moist, Conjunctiva normal, No scleral icterus Neck: Supple, Full range of motion Respiratory: Breath sounds normal, Clear to auscultation, No respiratory distress Cardiovascular: Regular rate & rhythm, Heart sounds normal, Intact distal pulses Abdomen / GI: Soft, Non-tender, No guarding, No rebound, No distention Extremities: Vascular intact, Neuro intact, No swelling Skin: Warm, Dry, No cyanosis General/Constitutional: Awake, Alert, No acute distress, Cooperative, Not toxic appearing Neurologic: Oriented X3, Speech NL, No motor deficits Drowsy but arousable Psychiatric: Mood NL Abnormal Mood/Affect: Positive: Flat affect Interpretation & Diagnostics Lab Results Interpretation Result Diagram: 10/21/16 1740 10/21/16 1740 Test 10/21/16 17:40 White Blood Count 7.8th/mm3 (3.8-10.1) Red Blood Count 4.87mil/mm3 (4.40-5.80) Hemoglobin 16.1g/dL (13.8-17.2) Hematocrit 45.1% (41.0-50.0) Mean Corpuscular Volume 92.6fL (81-100) Mean Corpuscular Hemoglobin 33.1pg (27.0-35.0) Mean Corpuscular Hemoglobin Concent 35.7% (32.0-37.0) Red Cell Distribution Width 13.1% (12.3-15.4) Platelet Count 266bil/L (150-400) Neutrophils (%) (Auto) 61.7% (40-74) Lymphocytes (%) (Auto) 30.0% (14-46) Monocytes (%) (Auto) 6.5% (4-12) Eosinophils (%) (Auto) 1.0% (0-5) Basophils (%) (Auto) 0.5% (0-3) Hold Purple Top Tube Received (Received) Hold Blue Top Tube Received (Received) Sodium Level 140mEq/L (134-144) Potassium Level 4.2mEq/L (3.5-5.2) Chloride Level 100mEq/L (97-108) Carbon Dioxide Level 23mmol/L (18-29) Blood Urea Nitrogen 11mg/dL (6-24) Creatinine 0.69mg/dL (0.76-1.27) Estimat Glomerular Filtration Rate 132mL/min (>59) Glucose Level 97mg/dL (60-99) Calcium Level 9.4mg/dL (8.5-10.1) Total Bilirubin 0.2mg/dL (0.0-1.2) Aspartate Amino Transf (AST/SGOT) 12U/L (0-50) Alanine Aminotransferase (ALT/SGPT) 11U/L (0-44) Alkaline Phosphatase 71U/L (25-150) Total Protein 7.3g/dL (6.4-8.4) Albumin 4.0g/dL (3.4-5.0) Thyroid Stimulating Hormone (TSH) 0.391uIU/mL (0.450-4.500) Hold Red Top Tube Received (Received) Hold [place] Top Tube Received (Received) Hold Pandya Top Tube Received (Received) Alcohols < 10mg/dL (0-10) Re-Eval/Medical Decision Med Decision/Clinical Course 46-year-old with chronic alcoholism presents with withdrawal symptoms now improved with benzodiazepines. He is high risk with prior seizure history while in withdrawal. Admitted now for medical detox and consideration for a longer term treatment once the acute medical phase is over. Transported in stable condition. Source of Hx: Old records Time of Eval: 19:26 Re-Evaluation/Progress Note: Pt rechecked. Informed pt of need for admission. Pt understands and agrees with plan for admission. All questions addressed. Consultation : Referral / Consult Name: Xenia Mckenzie DO Consulted With: Hospitalist Call Returned at: 19:26 Hand Cell Tuber: Will see patient, Agrees with eval, Agrees with plan, Accepts admit Counseled Regarding: Diagnosis, Lab results, Need for admission Discharge & Departure Primary Impression: Alcohol abuse Additional Impressions: Alcohol withdrawal syndrome Polysubstance abuse Disposition: ADMITTED TO HOSPITAL Discharge Condition All VS Reviewed: Yes Condition: Stable Referrals: [facility] (PCP) Scribe Attestation Portions of this note were transcribed by Sina Murdock. I, Dr. Odonnell, personally performed the history, physical exam and medical decision-making; I reviewed and confirmed the accuracy of the information in the transcribed note. copies to: [facility] Faheem Odonnell MD Oct 21, 2016 18:04 SINA MURDOCK Oct 21, 2016 18:12
[2016-10-21 18:20] LABS: BASOPHILS % (AUTO) 0.5 % (0-3); MONOCYTES % (AUTO) 6.5 % (4-12); Mean Corpuscular Hemoglobin 33.1 pg (27.0-35.0); Mean Corpuscular Volume 92.6 fL (81-100); NEUTROPHILS % (AUTO) 61.7 % (40-74); Platelet Count 266 bil/L (150-400)
[2016-10-21 19:15] VITALS: BP 128/73; PULSE 96; RESP 20; O2SAT 95
[2016-10-21] MEDS ORDERED: BENZ1TAB7 PO (19:59)
[2016-10-21] MEDS ORDERED: PARO20TA5 PO (20:14)
[2016-10-21] MEDS ORDERED: Ondansetron 2 mg/mL 2 mL Inj IVPUSH PRN ×2 (20:20→20:55)
[2016-10-21] MEDS ORDERED: Polyethylene Glycol (PEG) 17 Gm Powder PO PRN (20:55)
[2016-10-21] MEDS ORDERED: Alum-Mag Hydrox-Simeth 30 mL Suspension PO PRN (20:55)
[2016-10-21 20:57] VITALS: BP 134/75; PULSE 93; RESP 18; O2SAT 95
[2016-10-21] MEDS ORDERED: Thiamine Inj 100 MG, Folic Acid Inj 1 MG, Magnesium Sulfate 50% Inj 2 GM, Multivitamins... IV ONE ×5 (21:00)
[2016-10-21 21:05] VITALS: PULSE 74
[2016-10-21] MEDS: Lactated Ringer's 1,000 ML IV SCH (21:41)
--- NOTE | 2016-10-21 22:14 | PCM.HPMED ---
Subjective Date of Service Oct 21, 2016 Primary Provider: Admitting Physician: Xenia Mckenzie DO Primary Care Physician: [facility] [place] Attending Physician: Xenia Mckenzie DO Admit Status: From the Emergency Department Chief Complaint: Alcohol abuse History of Present Illness: Mr. Johnson is a 46-year-old male with past medical history of polysubstance abuse, EtOH abuse, schizophrenia, SI attempt, epilepsy who reports to the ED secondary to alcohol withdrawal. Patient states that he has been drinking approximately a case of beer each day with hard liquor intermittently last hard liquor drink 2 days ago. His last drink of beer was 10:00 this morning. He also reports polysubstance abuse both methamphetamines and heroin use, last used 2 days ago. He has required hospitalizations for alcohol withdrawal before and has had alcohol withdrawal seizures before. In the ED is reported to stated suicidal ideations "if I cannot get help I will jump off a bridge". The last time he was in a detox program was 1 year ago and he did have a 45 days sobriety period afterwards. He reportedly denies any history of pancreatitis, liver cirrhosis. At time of interview patient quite somnolent as he had received multiple benzodiazepines in the ED. He reports a left knee pain which she is wearing a brace over stating he recently got a steroid injection to the area but cannot remember why. He does not state any other specific complaints, denies chest pain, shortness of breath, headache or abdominal pain. Patient is on multiple antipsychotic medications, unknown with last heat to these. Patient admitted for alcohol withdrawal with history of alcohol withdrawal seizures. Review of Systems: A detailed review of systems unable to be completed secondary to patient's somnolent state. Allergies Coded Allergies: No Known Allergies (Unverified , 10/06/16) Home Medications Med rec reports: benztropine Haloperidol Meclizine Paroxetine Phenobarbital PMH Schizophrenia Epilepsy Substance use disorder Surgical History Abdominal hernia Family History Per previous medical record Mother passed of lung cancer Father passed of Liver cancer Social History Hx Alcohol Use: Yes (daily) Hx Substance Use: Yes (Meth, THC, Heroin) Hx Tobacco Use: Yes Smoking Status: Current Every Day Smoker Living Arrangement: with Friends/Roommate Exam Vital Signs Vital Sign - Last Date Time Temp Pulse Resp B/P Pulse Ox O2 Delivery O2 Flow Rate FiO2 10/21/16 20:57 36.5 93 18 134/75 95 Room Air Exam General: Somnolent laying in hospital bed in no acute distress, thin. Responds to verbal stimuli HEENT: Normocephalic, atraumatic. Neck: Supple with full range of motion. No jugular venous distension. Cardiovascular: Regular rate and rhythm with no murmurs, rubs, or gallops appreciated Pulmonary: Clear to auscultation bilaterally with no crackles, wheezes, or rhonchi. Normal respiratory effort with no use of accessory muscles. Abdomen: Bowel tones present. Soft, nontender, nondistended. Extremities: No clubbing, cyanosis, edema. Left knee brace in place. Tender to palpation Skin: Normal temperature, turgor, and texture Neurological: Cranial nerves grossly intact. Psychiatric: Somnolent. Arousable to voice.. Lab and Diagnostics Result Diagram: 10/21/16173910/21/161739 Assessment & Plan Mr. Johnson is a 46-year-old male with past medical history of polysubstance abuse, EtOH abuse, schizophrenia, SI attempt, epilepsy who is admitted for EtOH withdrawal with history of EtOH withdrawal seizures. Acute on chronic alcohol intoxication with desire for rehabilitation. Present on admission. Ongoing Urine shows alcohol level less than [address] CIWA protocol in place Fluid replacements, banana bag Continue to monitor Case management substance abuse referral Polysubstance abuse. Present on admission. Ongoing Urinalysis positive for barbiturates, amphetamines, benzodiazepines and cannabinoids Last use reported 2 days ago Case management referral as above Tobacco dependence. Present on admission. Ongoing Nicotine patch when necessary Chronic conditions Schizophrenia, epilepsy. Present on admission. Ongoing Held home meds, will consider restarting once benzodiazepine requirements have been reduced Psych consult ordered and pending secondary to multitude of psychiatric medications and appropriateness of restarting sedative medications given current benzodiazepine load Patient Status: Patient was admitted under inpatient status with expected length of stay greater than two midnights due to severity of presenting symptoms , risk of adverse event, and complexity of treatment plan. GI Prophylaxis: H2 luc VTE Prophylaxis: Sub-Q Heparin (Unfractionated) Resuscitation Status: CPR: Attempt Resuscitation Attending Statement The patient was seen and examined together with house staff on 10/21/2016 and I agree with the history, exam and plan as outlined in the note above. BRIELLE DAILY DO Oct 21, 2016 22:14 Xenia Mckenzie DO Oct 22, 2016 05:40
[2016-10-21 22:47] VITALS: BP 106/67; PULSE 75; RESP 18; O2SAT 90
[2016-10-22] VITALS (9 sets, daily range): BP systolic 96–118; BP diastolic 61–78; PULSE 53–82; RESP 18–22; O2SAT 94–97
[2016-10-22] MEDS: Heparin 5,000 Unit/mL Inj SUBQ SCH ×3 (00:09→17:50)
[2016-10-22 04:04] LABS: BASOPHILS % (AUTO) 0.7 % (0-3); EOSINOPHILS % (AUTO) 2.3 % (0-5); MONOCYTES % (AUTO) 10.1 % (4-12); Mean Corpuscular Hemoglobin 33.1 pg (27.0-35.0); Mean Corpuscular Volume 94.1 fL (81-100); NEUTROPHILS % (AUTO) 42.7 % (40-74); Platelet Count 224 bil/L (150-400)
--- NOTE | 2016-10-22 04:18 | NUR ---
Activity/CIWA Pt arrived to [facility] alert and oriented x [address] and time at 1950. Pt ambulated to the scale and bed with an unsteady gait and 1PA to help with wobbly movement. Pt asked if he had to urinate and he stated, "The dragon is holding my urine." Pt had visual and auditory hallucinations also yelling out, "There are demons in here and they are trying to get me.' "Help the demons are after me." CIWA-11 Pt given Lorazepam IVP and appeared to be asleep without distress. Pt later cooperative requesting something to eat and was given chicken broth x2 due to clear diet order. Tele: SR 78 per soil field technician. Urine sample sent to lab to testing. VSS. Care continues.
[2016-10-22] MEDS ORDERED: Thiamine Inj 200 MG in Dextrose 5% 50 ML IV SCH (08:30)
[2016-10-22] MEDS: Multivit-Miner-Folic Acid-Iron Tablet PO SCH (08:32)
--- NOTE | 2016-10-22 12:08 | NUR ---
Social Work: Screen/Multidisciplinary Rounds D: Per EMR review, pt is a 46 year old male admitted for Alcohol Withdrawal. The patient is [employer] insurance with no supplement. PCP is through [facility]. NOK is aDrian Anderson, brother. Advanced directives not completed. Readmit score is high, 7/8. Per H&P that patient reported to admitting providers "if I cannot get help I will jump off a bridge." The patient was last admitted to [facility] in August 2016 for ETOH withdrawal. The patient has a diagnosis of schizophrenia in which he has found it challenging to get connected with a psych provider to prescribe his psychiatric mediations. During this admission, the patient has been placed on CIWA protocol with scores between 10-11. The patient is experiencing hallucinations reporting to staff assistant that demons are in his room and making comments such as "the dragon is holding my urine." At this time, the patient is not appropriate for discharge planning, CD or MH assessments. Per attending provider, psychiatry will not see the patient until social work has evaluated. RULES EXAMINER requested CM order to evaluate for MH and complete CD assessment. No orders placed at this time. RULES EXAMINER to see the patient when he is medically cleared. A: Pt who lives in [place] with friends. P: RULES EXAMINER to continue to follow and will see the patient for a CD and MH assessment once he is medically stable and provider placed CM order. NIVIA [place]
[2016-10-22] MEDS: PHENobarbital 32.4 mg Tablet PO SCH ×2 (12:13→21:27)
[2016-10-22] MEDS: Lactated Ringer's 1,000 ML IV SCH (12:13)
--- NOTE | 2016-10-22 14:58 | PCM.PNMED ---
Subjective Date of Service Oct 22, 2016 Subjective Mr. Johnson is a 46-year-old male with past medical history of polysubstance abuse, EtOH abuse, schizophrenia, SI attempt, epilepsy who is admitted for EtOH withdrawal with history of EtOH withdrawal seizures. Today, patient was alert, awake and oriented to place but not to time when I was interviewing him. However, nursing reported that he was confused about his surroundings. Per nursing, CIWA score was 10. There were no acute events overnight. On ROS, patient reports nausea, vomiting, tremors, diaphoresis, anxiety, agitation, tactile disturbances, as well as auditory and visual hallucinations, and headaches. He denied suicidal ideations when I interviewed him; however, he expressed to other providers that he's hearing voices in his head telling him to kill himself. Exam Vital Signs Vital Sign - Last Date Time Temp Pulse Resp B/P Pulse Ox O2 Delivery O2 Flow Rate FiO2 10/22/16 12:56 37.3 74 22 101/64 94 Room Air Intake and Output 10/21/16 10/21/16 10/22/16 Cumulative From/Thru 15:00 23:00 07:00 10/21/16 16:08 - 10/22/16 06:23 Intake Total 1987 ml 1987 ml Output Total 480 ml 480 ml Balance 1507 ml 1507 ml Intake IV Total 1987 ml 1987 ml Output Urine Total 480 ml 480 ml # Voids 1 1 # Bowel Movements 0 0 Exam General: Patient is lying comfortably on bed, AAOX3, not in acute distress cooperative, diaphoretic. HEENT: head normocephalic and atraumatic, PERRLA, EOMI, no scleral icterus, noninjected conjunctiva Neck: neck supple, non-tender, no lymphadenopathy, trachea midline, no JVD CV: regular rate and rhythm, s1 and s2 heard, no murmur, radial pulses 2+ and equal bilaterally, no rubs murmurs or gallops, no edema Lungs: Clear to auscultation bilaterally, no wheezes, rales or rhonchi, no increased work of breathing Abdomen: normoactive bowel sounds on 4Q, soft, non-distended, non-tender to palpation, no organomegally, Skin: warm and dry, tattoes on UE Musculoskeletal: 5/5 UE and LE strength bilaterally, full ROM bilaterally Neuro: Grossly neurologically intact, cranial nerves II through XII intact, asterixis positive, tremors evident Psych: flat affect, states he has visual and auditory hallucinations, denied suicidal ideations during my PE IVs and Medications IV Fluids Lactated Ringer Medications Reviewed: Medications were reviewed in detail Medications I risk medications include Ativan, haloperidol, phenobarbital Lab and Diagnostics Laboratory Tests Test 10/21/16 17:40 10/21/16 20:16 10/22/16 00:01 10/22/16 03:50 White Blood Count 7.8th/mm3 (3.8-10.1) 7.3th/mm3 (3.8-10.1) Red Blood Count 4.87mil/mm3 (4.40-5.80) 4.26mil/mm3 (4.40-5.80) Hemoglobin 16.1g/dL (13.8-17.2) 14.1g/dL (13.8-17.2) Hematocrit 45.1% (41.0-50.0) 40.1% (41.0-50.0) Mean Corpuscular Volume 92.6fL (81-100) 94.1fL (81-100) Mean Corpuscular Hemoglobin 33.1pg (27.0-35.0) 33.1pg (27.0-35.0) Mean Corpuscular Hemoglobin Concent 35.7% (32.0-37.0) 35.2% (32.0-37.0) Red Cell Distribution Width 13.1% (12.3-15.4) 13.2% (12.3-15.4) Platelet Count 266bil/L (150-400) 224bil/L (150-400) Neutrophils (%) (Auto) 61.7% (40-74) 42.7% (40-74) Lymphocytes (%) (Auto) 30.0% (14-46) 44.1% (14-46) Monocytes (%) (Auto) 6.5% (4-12) 10.1% (4-12) Eosinophils (%) (Auto) 1.0% (0-5) 2.3% (0-5) Basophils (%) (Auto) 0.5% (0-3) 0.7% (0-3) Hold Purple Top Tube Received (Received) Hold Blue Top Tube Received (Received) Sodium Level 140mEq/L (134-144) 137mEq/L (134-144) Potassium Level 4.2mEq/L (3.5-5.2) 4.4mEq/L (3.5-5.2) Chloride Level 100mEq/L (97-108) 103mEq/L (97-108) Carbon Dioxide Level 23mmol/L (18-29) 21mmol/L (18-29) Blood Urea Nitrogen 11mg/dL (6-24) 12mg/dL (6-24) Creatinine 0.69mg/dL (0.76-1.27) 0.61mg/dL (0.76-1.27) Estimat Glomerular Filtration Rate 132mL/min (>59) 152mL/min (>59) Glucose Level 97mg/dL (60-99) 101mg/dL (60-99) Calcium Level 9.4mg/dL (8.5-10.1) 8.3mg/dL (8.5-10.1) Total Bilirubin 0.2mg/dL (0.0-1.2) 0.2mg/dL (0.0-1.2) Aspartate Amino Transf (AST/SGOT) 12U/L (0-50) 13U/L (0-50) Alanine Aminotransferase (ALT/SGPT) 11U/L (0-44) 8U/L (0-44) Alkaline Phosphatase 71U/L (25-150) 56U/L (25-150) Total Protein 7.3g/dL (6.4-8.4) 5.8g/dL (6.4-8.4) Albumin 4.0g/dL (3.4-5.0) 3.4g/dL (3.4-5.0) Thyroid Stimulating Hormone (TSH) 0.391uIU/mL (0.450-4.500) Hold Red Top Tube Received (Received) Hold Republic Top Tube Received (Received) Hold Pandya Top Tube Received (Received) Alcohols < 10mg/dL (0-10) Hold Urine Received (Received) Received (Received) Urine Opiates Screen Negative Urine Methadone Screen Negative Urine Barbiturates Screen Positive Urine Amphetamines Screen Positive Urine Benzodiazepines Screen Positive Urine Cocaine Metabolite Screen Negative Urine Cannabinoids Screen Positive Free Thyroxine 0.90ng/dL (0.82-1.77) Result Diagram: 10/22/16 0350 10/22/16 0350 Assessment & Plan Mr. Johnson is a 46-year-old male with past medical history of polysubstance abuse, EtOH abuse, schizophrenia, SI attempt, epilepsy who is admitted for EtOH withdrawal with history of EtOH withdrawal seizures. Patient has been admitted now for medical detox and consideration for a longer term treatment once the acute medical phase is over. Acute on chronic alcohol intoxication with desire for rehabilitation. Present on admission. Ongoing -Urine shows alcohol level less than 10 -Given prior seizure hx while in withdrawal, Seizure precautions in place -CIWA protocol in place -Fluid replacements, banana bag, thiamine -Continue to monitor -Case management substance abuse referral Polysubstance abuse. Present on admission. Ongoing -Urinalysis positive for barbiturates, amphetamines, benzodiazepines and cannabinoids -Last use reported 2 days ago -Case management referral as above Tobacco dependence. Present on admission. Ongoing -Nicotine patch when necessary Epilepsy. Present on admission. Ongoing, currently stable -Continue home medications of phenobarbital -Continue to monitor Schizophrenia, epilepsy. Present on admission. Ongoing -Restart home medications -Psych was consulted and we appreciate their input and recommendations -Continue to monitor for increase in voices and suicidal/homicidal ideations GI Prophylaxis: H2 luc VTE Prophylaxis: Sub-Q Heparin (Unfractionated) Resuscitation Status: CPR: Attempt Resuscitation Attending Statement The patient was seen and examined together with Dr. Roca on 10/22/16 and I have added additional information to the note above. Miranda Roca DO Oct 22, 2016 14:57 Angela Loco DO Oct 24, 2016 14:55
--- NOTE | 2016-10-22 17:42 | NUR ---
Impulsive Behavior/CIWA Pt very impulsive when he wakes up he is confused as to where he is. Pt has stacy alarm on his bed, but is already out of bed by the time this RN arrives to the sound of the alarm. Pt has pulled out his IV, and has also removed his telemetry leads. Pt also demonstrates incontinence of urine, he states he is looking for bathroom. Pt urinal is on bedside table in clear view and easy reach. Pt CIWA scores 16 for restlessness, anxiety, occasional nausea, tactile disturbances, headache and confusion.
[2016-10-22] MEDS: PARoxetine 20 mg Tablet PO SCH (21:28)
--- NOTE | 2016-10-22 23:20 | NUR ---
ETOH withdraw/Sitter: Pt becoming increasingly restless and anxious, getting OOB frequently--activating the bed alarm. Pt wants to leave in order to smoke. Pt instructed that he may not smoke and is offered a nicotine patch, which the pt. refuses. Pt attempts ambulating the leary with INFORMATION TECHNOLOGY AUDITOR, but is too unsteady and requires INFORMATION TECHNOLOGY AUDITOR and RN to assist him back to his room and bed. Pt receiving frequent and increased dosages of Ativan per CIWA score and protocol. Sitter brought to the bedside for pt safety. Will cont. to closely monitor and re-assess.
[2016-10-23] VITALS (9 sets, daily range): BP systolic 109–122; BP diastolic 64–76; PULSE 54–80; RESP 16–26; O2SAT 94–97
[2016-10-23] MEDS: Heparin 5,000 Unit/mL Inj SUBQ SCH ×4 (00:54→23:38)
--- NOTE | 2016-10-23 02:30 | NUR ---
Sitter Released: Sitter released from the bedside. Pt resting currently; bed alarm activated. Will cont. to closely monitor. Continuous pulse oximetry at the bedside. Pt stable.
[2016-10-23 03:59] LABS: Mean Corpuscular Hemoglobin 32.8 pg (27.0-35.0); Mean Corpuscular Volume 93.1 fL (81-100); Platelet Count 217 bil/L (150-400)
[2016-10-23 04:18] LABS: BASOPHILS % (AUTO) 3 % (0-3); EOSINOPHILS % (AUTO) 2 % (0-5); MONOCYTES % (AUTO) 5 % (4-12); NEUTROPHILS % (AUTO) 61 % (40-74)
[2016-10-23] MEDS: Multivit-Miner-Folic Acid-Iron Tablet PO SCH (09:11)
[2016-10-23] MEDS: PHENobarbital 32.4 mg Tablet PO SCH ×2 (09:11→20:41)
--- NOTE | 2016-10-23 15:45 | NUR ---
Social Work: Continued Discharge Planning/Multidisciplinary Rounds D: Pt discussed in multidisciplinary rounds; the patient is not yet medically stable with CIWA scores in the 20s overnight. Psychiatry is coming to see the patient for medication management. Social work will still need to clear the patient for discharge from a mental health/safety standpoint. t/c from Diamond Pt's care services manager at [facility] in [place] ([phone]). She states that the patient is connected with them for Primary Care and Mental Health therapy. His therapist is Stepan Bailon who the patient sees once a week. The patient was making similar suicidal statements to them on the day of his admission. They have been working on trying to get the patient into a 30 day inpatient program. She is going to contact Kumar at [facility] to determine if they have an beds available in the foreseeable future. Ideally, believe that the patient would benefit most from direct admission to [facility] from [facility] if possible. She understands that this might not be possible. TRAINING AND DEVELOPMENT PROFESSIONAL will await a return phone call from her to determine if the patient has a bed date at [facility]. A: Pt who lives in [place] with his friends. P: Evolving; TRAINING AND DEVELOPMENT PROFESSIONAL to continue to follow closely and will see the patient to complete a CD and mental health assessment when he is medically stable. NIVIA [place]
--- NOTE | 2016-10-23 17:42 | PCM.PNMED ---
Subjective Date of Service Oct 23, 2016 Subjective Mr. Johnson is a 46-year-old male with past medical history of polysubstance abuse, EtOH abuse, schizophrenia, SI attempt, epilepsy who is admitted for EtOH withdrawal with history of EtOH withdrawal seizures. Patient has been admitted now for medical detox and consideration for a longer term treatment once the acute medical phase is over. This morning, patient complained of nausea, headaches, anxiety, tactile disturbances, visual and auditory hallucinations that are telling him to run. Overnight, patient was restless and anxious. He wanted to leave the hospital in order to smoke but denied nicotine patch when offered. In addition, he pulled out his IV and removed his telemetry leads. He required a sitter overnight but sitter was later released when patient was more calm. Exam Vital Signs Vital Sign - Last Date Time Temp Pulse Resp B/P Pulse Ox O2 Delivery O2 Flow Rate FiO2 10/23/16 03:59 56 10/23/16 03:34 36.5 18 110/70 97 Room Air Intake and Output 10/22/16 10/22/16 10/23/16 Cumulative From/Thru 15:00 23:00 07:00 10/21/16 16:08 - 10/23/16 06:31 Intake Total 2134 ml 4121 ml Output Total 1175 ml 100 ml 1755 ml Balance 959 ml -100 ml 2366 ml Intake Oral 700 ml 700 ml IV Total 1434 ml 3421 ml Output Urine Total 1175 ml 100 ml 1755 ml # Voids 1 # Bowel Movements 0 0 Exam General: Patient is lying comfortably on bed, AAOX3, not in acute distress cooperative, not diaphoretic HEENT: head normocephalic and atraumatic, PERRLA, EOMI, no scleral icterus, noninjected conjunctiva Neck: neck supple, non-tender, no lymphadenopathy, trachea midline, no JVD CV: regular rate and rhythm, s1 and s2 heard, no murmur, radial pulses 2+ and equal bilaterally, no rubs murmurs or gallops, no edema Lungs: Clear to auscultation bilaterally, no wheezes, rales or rhonchi, no increased work of breathing Abdomen: normoactive bowel sounds on 4Q, soft, non-distended, non-tender to palpation, no organomegally, Skin: warm and dry, tattoes on UE Musculoskeletal: 5/5 UE and LE strength bilaterally, full ROM bilaterally Neuro: Grossly neurologically intact, cranial nerves II through XII intact, asterixis positive, tremors evident Psych: flat affect, states he has visual and auditory hallucinations, denies suicidal ideations but states the voices are still telling him to run and to kill himself IVs and Medications Medications Reviewed: Medications were reviewed in detail Medications High risk medications include Ativan, haloperidol, phenobarbital Lab and Diagnostics Result Diagram: 10/23/1632910/23/16329 Assessment & Plan Mr. Johnson is a 46-year-old male with past medical history of polysubstance abuse, EtOH abuse, schizophrenia, SI attempt, epilepsy who is admitted for EtOH withdrawal with history of EtOH withdrawal seizures. Patient has been admitted now for medical detox and consideration for a longer term treatment once the acute medical phase is over. Acute on chronic alcohol intoxication with desire for rehabilitation. Present on admission. Ongoing -Urine shows alcohol level less than 10 -Given prior seizure hx while in withdrawal, Seizure precautions in place -CIWA protocol in places currently scoring between 14-26 -Discontinue Fluid replacements -Continue banana bag, thiamine -Continue to monitor -Case management substance abuse referral Polysubstance abuse. Present on admission. Ongoing -Urinalysis positive for barbiturates, amphetamines, benzodiazepines and cannabinoids -Last use reported 2 days ago -Case management referral as above Tobacco dependence. Present on admission. Ongoing -Nicotine patch when necessary Epilepsy. Present on admission. Ongoing, currently stable -Continue home medications of phenobarbital -Continue to monitor Schizophrenia, epilepsy. Present on admission. Ongoing -Restart home medications -Psych was consulted and we appreciate their input and recommendations case was discussed with Dr. Castro who suggested stopping Paxil and switching to Lexapro -Continue to monitor for increase in voices and suicidal/homicidal ideations Code Status: Full Code Pain Evaluation: Adequate Pain Control GI Prophylaxis: H2 luc VTE Prophylaxis: Sub-Q Heparin (Unfractionated) Resuscitation Status: CPR: Attempt Resuscitation Attending Statement The patient was seen and examined together with Dr. Roca on 10/23/16 and I have added additional information to the note above. Miranda Roca DO Oct 23, 2016 06:46 Angela Loco DO Oct 24, 2016 15:01
--- NOTE | 2016-10-23 18:29 | NUR ---
Impulsive Behavior Pt continues to exhibit impulsive behavior. Will not use call light to notify staff of his needs. Will get out of bed to urinate, has urinated on floor on 2 occasions, and removed telemetry and pulse oximeter. [place] alarm on, bed in low locked position, yellow socks on pt, seizure pads in place, call light and urinal within reach.
[2016-10-23] MEDS: PARoxetine 20 mg Tablet PO SCH (20:41)
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
[2016-10-24 03:36] VITALS: BP 114/70; PULSE 59; RESP 16; O2SAT 95
[2016-10-24 03:47] LABS: Mean Corpuscular Hemoglobin 32.7 pg (27.0-35.0); Mean Corpuscular Volume 92.8 fL (81-100)
--- NOTE | 2016-10-24 04:43 | NUR ---
Behavior Bed alarm in place for impulsive behavior, pt observed exiting bed x3 for toileting prior to HS meds. Routine psych meds given at bedtime, after which pt slept quietly without behaviors.
[2016-10-24 05:53] VITALS: PULSE 59
[2016-10-24 07:42] VITALS: BP 121/83; PULSE 70; RESP 24; O2SAT 94
[2016-10-24] MEDS: Multivit-Miner-Folic Acid-Iron Tablet PO SCH (07:47)
[2016-10-24] MEDS: PHENobarbital 32.4 mg Tablet PO SCH (07:47)
[2016-10-24] MEDS: Heparin 5,000 Unit/mL Inj SUBQ SCH ×2 (07:48→15:48)
--- NOTE | 2016-10-24 12:02 | NUR ---
CIWA/Activity Pt CIWA >10 this AM, 19, and 16. Per pt he has baseline visual and auditory hallucinations. Ativan is given PRN. Pt cooperative with care. Impulsive at times. Per M.D. pt to be up in chair as tolerated in preparation for discharge. Pt is a little unsteady on feet. Requires SBA.
[2016-10-24 12:03] VITALS: BP 108/73; PULSE 58; RESP 20; O2SAT 97
[2016-10-24 12:40] VITALS: PULSE 87
--- NOTE | 2016-10-24 15:01 | PCM.PNMED ---
Subjective Date of Service Oct 24, 2016 Subjective Mr. Johnson is a 46-year-old male with past medical history of polysubstance abuse, EtOH abuse, schizophrenia, SI attempt, epilepsy who is admitted for EtOH withdrawal with history of EtOH withdrawal seizures. Patient has been admitted now for medical detox and consideration for a longer term treatment once the acute medical phase is over. This morning, patient appeared much more alert. Bed alarm in place for impulsive behavior, pt observed exiting bed x3 for toileting prior to HS meds. Routine psych meds given at bedtime, after which pt slept quietly without behaviors. Exam Vital Signs Vital Sign - Last Date Time Temp Pulse Resp B/P Pulse Ox O2 Delivery O2 Flow Rate FiO2 10/24/16 07:42 36.8 70 24 121/83 94 Room Air Intake and Output 10/23/16 10/23/16 10/24/16 Cumulative From/Thru 15:00 23:00 07:00 10/21/16 16:08 - 10/24/16 05:29 Intake Total 736 ml 900 ml 550 ml 6307 ml Output Total 975 ml 1275 ml 1100 ml 5105 ml Balance -239 ml -375 ml -550 ml 1202 ml Intake Oral 736 ml 900 ml 550 ml 2886 ml IV Total 3421 ml Output Urine Total 975 ml 1275 ml 1100 ml 5105 ml # Voids 9 10 # Bowel Movements 0 0 1 1 Exam General: Patient is lying comfortably on bed, AAOX3, not in acute distress cooperative, not diaphoretic HEENT: head normocephalic and atraumatic, PERRLA, EOMI, no scleral icterus, noninjected conjunctiva Neck: neck supple, non-tender, no lymphadenopathy, trachea midline, no JVD CV: regular rate and rhythm, s1 and s2 heard, no murmur, radial pulses 2+ and equal bilaterally, no rubs murmurs or gallops, no edema Lungs: Clear to auscultation bilaterally, no wheezes, rales or rhonchi, no increased work of breathing Abdomen: normoactive bowel sounds on 4Q, soft, non-distended, non-tender to palpation, no organomegally, Skin: warm and dry, tattoes on UE Musculoskeletal: 5/5 UE and LE strength bilaterally, full ROM bilaterally Neuro: Grossly neurologically intact, cranial nerves II through XII intact, asterixis positive, tremors evident Psych: flat affect, states he has visual and auditory hallucinations, denied suicidal ideations during my PE Lab and Diagnostics Result Diagram: 10/24/1632910/24/16329 Assessment & Plan Mr. Johnson is a 46-year-old male with past medical history of polysubstance abuse, EtOH abuse, schizophrenia, SI attempt, epilepsy who is admitted for EtOH withdrawal with history of EtOH withdrawal seizures. Patient has been admitted now for medical detox and consideration for a longer term treatment once the acute medical phase is over. Patient follows with an outpatient mental health professional, with whom Social work has had contact with. Acute on chronic alcohol intoxication with desire for rehabilitation. Present on admission. Ongoing -Urine shows alcohol level less than 10 -Given prior seizure hx while in withdrawal, Seizure precautions in place -CIWA protocol in places currently scoring between 14-26 -Discontinue Fluid replacements -Continue banana bag, thiamine -Continue to monitor -Case management substance abuse referral Polysubstance abuse. Present on admission. Ongoing -Urinalysis positive for barbiturates, amphetamines, benzodiazepines and cannabinoids -Last use reported 2 days ago -Case management referral as above Tobacco dependence. Present on admission. Ongoing -Nicotine patch when necessary Epilepsy. Present on admission. Ongoing, currently stable -Continue home medications of phenobarbital -Continue to monitor Schizophrenia, epilepsy. Present on admission. Ongoing -Restart home medications -Psych was consulted and we appreciate their input and recommendations case was discussed with Dr. Castro who suggested stopping Paxil and switching to Lexapro -Continue to monitor for increase in voices and suicidal/homicidal ideations Code Status: Full Code GI Prophylaxis: H2 luc VTE Prophylaxis: Sub-Q Heparin (Unfractionated) Resuscitation Status: CPR: Attempt Resuscitation Miranda Roca DO Oct 24, 2016 07:52 Angela Loco DO Oct 24, 2016 15:01
--- NOTE | 2016-10-24 16:25 | NUR ---
Pt left hospital AMA Around 3PM pt asked if he had to still be here as he'd be better off going to AA meetings and being "around people like me." Pt asked if the current care he was getting was all he was going to get for his withdrawal. Adv pt yes, we have restarted him on his psych meds and are now using Ativan to help his withdrawal sx. Pt was on cell phone frequently. I paged M.D. awaiting call back. When I was rounding about 45min later, I noted pt gown and tele leads on bed. Entered room and called out for pt, checked bathroom and pt was gone. He did have peripheral IV access to right forearm. M.D. made aware. Security and C.N.A searched hospital perimeter not able to located pt. At this point he has left AMA. If he returns he will have to be re-admitted via ER. Pt alert. Not suicidal as I had asked him this earlier today. He does have baseline schizophrenia and "always" hears and sees things that' aren't there.
--- NOTE | 2016-10-24 16:41 | PCM.DC.MED ---
Discharge Summary Date of Service Oct 24, 2016 Dates of Hospitalization Date of Hospital Admission Oct 21, 2016 at 19:41 Date of Discharge: Oct 24, 2016 Providers: Admitting Physician: Xenia Mckenzie DO Primary Care Physician: [facility] Attending Physician: Angela Loco DO Diagnosis at Time of Discharge Diagnosis at Time of Discharge Patient Left Against Medical Advice Acute on chronic alcohol intoxication with desire for rehabilitation. Present on admission. Ongoing Polysubstance abuse. Present on admission. Ongoing Tobacco dependence. Present on admission. Ongoing Epilepsy. Present on admission. Ongoing, currently stable Schizophrenia, epilepsy. Present on admission. Ongoing Brief History H&P: Mr. Johnson is a 46-year-old male with past medical history of polysubstance abuse, EtOH abuse, schizophrenia, SI attempt, epilepsy who reports to the ED secondary to alcohol withdrawal. Patient states that he has been drinking approximately a case of beer each day with hard liquor intermittently last hard liquor. He also reports polysubstance abuse both methamphetamines and heroin use, last used 2 days ago. He has required hospitalizations for alcohol withdrawal before and has had alcohol withdrawal seizures before. In the ED is reported to stated suicidal ideations "if I cannot get help I will jump off a bridge". The last time he was in a detox program was 1 year ago and he did have a 45 days sobriety period afterwards. He reportedly denies any history of pancreatitis, liver cirrhosis. At time of interview patient quite somnolent as he had received multiple benzodiazepines in the ED. He reports a left knee pain which he is wearing a brace over stating he recently got a steroid injection to the area but cannot remember why. He does not state any other specific complaints, denies chest pain, shortness of breath, headache or abdominal pain. Patient is on multiple antipsychotic medications, unknown with last heat to these. Patient was admitted for alcohol withdrawal with history of alcohol withdrawal seizures. Patient left Against Medical Advice. Patient left and was off of telemetry for 4 minutes. Nursing searched for him and called security. They searched throughout the entire hospital, including all of the bathrooms and parking lots and were unable to find him. He still had his IV line in when he left. Hospital Course Patient left Against Medical Advice Mr. Johnson is a 46-year-old male with past medical history of polysubstance abuse, EtOH abuse, schizophrenia, SI attempt, epilepsy who is admitted for EtOH withdrawal with history of EtOH withdrawal seizures. Patient has been admitted now for medical detox and consideration for a longer term treatment once the acute medical phase is over. Patient follows with an outpatient mental health professional, with whom Social work has had contact with. Acute on chronic alcohol intoxication with desire for rehabilitation. Present on admission. Ongoing -Urine shows alcohol level less than 10 -Given prior seizure hx while in withdrawal, Seizure precautions in place -CIWA protocol in places currently scoring between 14-26 -Discontinued Fluid replacements -Continued banana bag, thiamine -Case management substance abuse referral Polysubstance abuse. Present on admission. Ongoing -Urinalysis positive for barbiturates, amphetamines, benzodiazepines and cannabinoids -Case management referral as above Tobacco dependence. Present on admission. Ongoing -Nicotine patch when necessary Epilepsy. Present on admission. Ongoing, currently stable -Continued home medications of phenobarbital Schizophrenia, epilepsy. Present on admission. Ongoing -Restarted home medications -Psych was consulted and we appreciate their input and recommendations case was discussed with Dr. Castro who suggested stopping Paxil and switching to Lexapro -Continue to monitor for increase in voices and suicidal/homicidal ideations Code Status: Full Code Exam Vital Signs (Last) Date Time Temp Pulse Resp B/P Pulse Ox O2 Delivery O2 Flow Rate FiO2 10/24/16 12:40 87 10/24/16 12:03 36.5 20 108/73 97 Room Air Exam General: Patient is lying comfortably on bed, AAOX3, not in acute distress cooperative, not diaphoretic HEENT: head normocephalic and atraumatic, PERRLA, EOMI, no scleral icterus, noninjected conjunctiva Neck: neck supple, non-tender, no lymphadenopathy, trachea midline, no JVD CV: regular rate and rhythm, s1 and s2 heard, no murmur, radial pulses 2+ and equal bilaterally, no rubs murmurs or gallops, no edema Lungs: Clear to auscultation bilaterally, no wheezes, rales or rhonchi, no increased work of breathing Abdomen: normoactive bowel sounds on 4Q, soft, non-distended, non-tender to palpation, no organomegally, Skin: warm and dry, tattoes on UE Musculoskeletal: 5/5 UE and LE strength bilaterally, full ROM bilaterally Neuro: Grossly neurologically intact, cranial nerves II through XII intact, asterixis positive, tremors evident Psych: flat affect, states he has visual and auditory hallucinations, denies suicidal ideations but states the voices are still telling him to run and to kill himself but are less compared to yesterday Test 10/21/16 17:40 10/21/16 20:16 10/22/16 00:01 10/22/16 03:50 Hold Purple Top Tube Received (Received) Hold Blue Top Tube Received (Received) Thyroid Stimulating Hormone (TSH) 0.391uIU/mL (0.450-4.500) Hold Red Top Tube Received (Received) Hold Talmage Top Tube Received (Received) Hold Pandya Top Tube Received (Received) Alcohols < 10mg/dL (0-10) Urine Opiates Screen Negative Urine Methadone Screen Negative Urine Barbiturates Screen Positive Urine Amphetamines Screen Positive Urine Benzodiazepines Screen Positive Urine Cocaine Metabolite Screen Negative Urine Cannabinoids Screen Positive Hold Urine Received (Received) Free Thyroxine 0.90ng/dL (0.82-1.77) Free Triiodothyronine 2.5pg/mL (2.0-4.4) Test 10/23/16 03:30 10/24/16 03:30 Neutrophils (%) (Auto) 61% (40-74) Lymphocytes (%) (Auto) 49% (14-46) Monocytes (%) (Auto) 5% (4-12) Eosinophils (%) (Auto) 2% (0-5) Basophils (%) (Auto) 3% (0-3) Band Neutrophils % 1% (1-5) Hematology Comments White Blood Count 8.0th/mm3 (3.8-10.1) Red Blood Count 4.71mil/mm3 (4.40-5.80) Hemoglobin 15.4g/dL (13.8-17.2) Hematocrit 43.7% (41.0-50.0) Mean Corpuscular Volume 92.8fL (81-100) Mean Corpuscular Hemoglobin 32.7pg (27.0-35.0) Mean Corpuscular Hemoglobin Concent 35.2% (32.0-37.0) Red Cell Distribution Width 12.8% (12.3-15.4) Platelet Count 227bil/L (150-400) Sodium Level 139mEq/L (134-144) Potassium Level 4.5mEq/L (3.5-5.2) Chloride Level 102mEq/L (97-108) Carbon Dioxide Level 23mmol/L (18-29) Blood Urea Nitrogen 12mg/dL (6-24) Creatinine 0.65mg/dL (0.76-1.27) Estimat Glomerular Filtration Rate 141mL/min (>59) Glucose Level 91mg/dL (60-99) Calcium Level 9.0mg/dL (8.5-10.1) Total Bilirubin 0.3mg/dL (0.0-1.2) Aspartate Amino Transf (AST/SGOT) 11U/L (0-50) Alanine Aminotransferase (ALT/SGPT) 9U/L (0-44) Alkaline Phosphatase 60U/L (25-150) Total Protein 6.3g/dL (6.4-8.4) Albumin 3.9g/dL (3.4-5.0) Discharge Medications Discharge Medications Benztropine Mesylate (Benztropine Mesylate) 1 Mg Tablet 1 MG PO HS (Reported) Haloperidol (Haloperidol) 5 Mg Tablet 5 MG PO QPM Prescribed by: AUGUSTA MORENO DO Meclizine (Bonine) 25 Mg Tab.chew 25 MG PO TID Prescribed by: JUAN CARLOS BLANK Paroxetine (Paroxetine) 20 Mg Tablet 20 MG PO HS (Reported) Phenobarbital (Phenobarbital) 64.8 Mg Tablet 64.8 MG PO BID (Reported) Attending Statement The patient was seen and examined together with Dr. Roca on 10/24/16 and I have added additional information to the note above. copies to: [facility] Miranda Roca DO Oct 24, 2016 16:41 Angela Loco DO Oct 25, 2016 11:49
--- NOTE | 2016-10-25 09:00 | NUR ---
Social Work Note: Elopement Per RN, pt eloped last night. Pt was feeling stable on his meds and did not see a reason to remain hospitalized. RN declined any further needs from IN[employer]OR [employer]ATIONS MANAGER. NIVIA Moulton
== END 2016-10-24 16:25 | disposition left against medical advice (07) | DRG 770 ==
LOC: SED 15:53 → PCC 19:41
PROVIDERS: ADMIT Internal Medicine; ATTEND Neuromusculoskeletal Medicine & OMM
DX: F10.239 Alcohol dependence with withdrawal, unspecified (principal); R45.851 Suicidal ideations; F15.10 Other stimulant abuse, uncomplicated; Y90.0 Blood alcohol level of less than 20 mg/100 ml; F20.9 Schizophrenia, unspecified; G40.909 Epilepsy, unspecified, not intractable, without status epilepticus; F11.90 Opioid use, unspecified, uncomplicated; F12.90 Cannabis use, unspecified, uncomplicated; F17.200 Nicotine dependence, unspecified, uncomplicated